=== PATIENT | female | born 1970 | race African-American/Black ===

== ENCOUNTER 2018-02-02 07:47 | Emergency (ER) | payer OTHER ==
[2018-02-02] MEDS ORDERED: methylPREDNISolone NA SUCC 125 MG/2 ML VIAL IVPUSH ONE (08:01)
[2018-02-02 08:03] VITALS: TEMP 98.5; BMI 26.5
--- NOTE | 2018-02-02 08:09 | PDOC ---
History of Present Illness - General Chief Complaint: Chronic pain Stated Complaint: PAIN Time Seen by Provider: 02/02/18 07:48 History Source: Patient Exam Limitations: No Limitations - History of Present Illness Initial Comments: 02/02/18 08:08 47yo F with history of RA not on any DMARDs or medication for over a year comes in with diffuse joint and body pain for the past 3 days. Pt states she was seeing Dr. Montgomery over a year ago, however her insurance changed to [place] through Medicaid. She used to be on Methotrexate over a year ago, but stopped because "she felt well." Pt reports since then taking only over the counter Advil for her pain mitigation. Her last dose of NSAIDs was this morning at 600mg which did not alleviate her pain. Denies any fever/chills/nausea/vomiting , CP/discomfort, palpitations, SOB, abdominal pain, easy bleeding or bruising, dysuria, polyuria. Past History - Past Medical History Allergies/Adverse Reactions: Allergies Allergy/AdvReac Type Severity Reaction Status Date / Time Latex, Natural Rubber Allergy Swelling Verified 02/02/18 07:57 No Known Drug Allergies Allergy Verified 02/02/18 07:57 Home Medications: Ambulatory Orders Ibuprofen [Motrin -] 800 mg PO PRN PRN 02/02/18 Metoprolol Succinate [Toprol Xl] 10 mg PO DAILY 02/02/18 Prednisone See Taper PO ASDIR #14 tablet 02/02/18 Anemia: Yes (HAS BEEN TREATED WITH IRON IN PAST) Asthma: No Cancer: No Cardiac Disorders: No (BENIGN HEART MURMUR A CHILD;PALPITATIONS) CVA: No COPD: No CHF: No Dementia: No Diabetes: No GI Disorders: Yes (C/O INDIGESTION;HAD COLITIS 12/05) Disorders: No HTN: Yes Hypercholesterolemia: No Liver Disease: No Seizures: No Thyroid Disease: No Other medical history: RHEUMATOID ARTHRITIS. - Surgical History Abdominal Surgery: Yes Appendectomy: No Cardiac Surgery: No Cholecystectomy: Yes Lung Surgery: No Neurologic Surgery: No Orthopedic Surgery: Yes (SX ON BOTH ELBOWS) - Immunization History Immunization Up to Date: No (no flu shot) - Suicide/Smoking/Psychosocial Hx Smoking Status: Yes Smoking History: Current every day smoker Have you smoked in the past 12 months: Yes Number of Cigarettes Smoked Daily: 10 Information on smoking cessation initiated: No 'Breaking Loose' booklet given: 01/12/13 Hx Alcohol Use: Yes Drug/Substance Use Hx: No Substance Use Type: Alcohol Hx Substance Use Treatment: No Review of Systems - Review of Systems Constitutional: No: Chills, Fever, Weakness HEENTM: No: Blurred Vision, Nose Congestion, Throat Pain Respiratory: No: Cough, Shortness of Breath, Wheezing Cardiac (ROS): No: Chest Pain, Lightheadedness, Palpitations, Syncope, Chest Tightness ABD/GI: No: Abdominal Distended, Diarrhea, Nausea, Vomiting, Abdominal cramping : No: Dysuria, Frequency, Flank Pain Musculoskeletal: Yes: Back Pain, Joint Pain, Joint Swelling. No: Muscle Pain, Muscle Weakness Integumentary: No: Bruising, Pruritus, Rash Neurological: No: Headache, Numbness, Weakness, Dizziness Psychiatric: No: Anxiety, Depression Hematologic/Lymphatic: No: Easy Bleeding, Easy Bruising *Physical Exam - Vital Signs Last Vital Signs Temp Pulse Resp BP Pulse Ox 98.5 F 70 18 133/96 100 02/02/18 07:59 02/02/18 07:59 02/02/18 07:59 02/02/18 07:59 02/02/18 07:59 - Physical Exam Comments: 02/02/18 08:14 GEN: NAD, awake, alert and oriented x3 HEENT: L eye scleral injections, EOMI, ELBA, anicteric sclera, moist mucosa Neck: No lymphadenopaty LUNGS: CTA bilaterally. No wheezes, rhonchi, or rales CARDIAC: RRR no murmurs appreciated ABD: Soft, NT/ND, no guarding no rebound, normoactive BS EXT: Multiple areas of joint inflammation and edema (most notable R MCP joint digits 2-4, L DIP joints digits 2-3, and L knee, no lower extremity edema , 2+ DP pulses ED Treatment Course - LABORATORY CBC & Chemistry Diagram: 02/02/18 08:15 02/02/18 08:15 Medical Decision Making - Medical Decision Making 02/02/18 08:17 47yo F with high suspicion of RA flare --CBC, CMP --Solumedrol 125mg x1 for acute flare-up --Explained to patient about importance of follow-up and how she should see a station cleaning porter or the resident clinic later this week --Will attempt to locate station cleaning porter with medicaid coverage eye injections explained by dry eyes --explained use of liquid tears for patient 02/02/18 09:05 CMP with hypokalemia of 3.2 --Kdur 40 once 02/02/18 09:38 On reassessment pt's pain feeling better compared to before. Will attempt to contact a station cleaning porter that takes medicaid and reassess for patient's ability to walk 02/02/18 10:[address] Montgomery's donor relations officer and they do not take Medicaid patients nor refer patients to anybody specifically 02/02/18 10:19 Pt's L knee pain worsened on reassessment --Morphine 4mg Once x1 (2 total doses at this point) --Will try Percocet 5-325 as well *DC/Admit/Observation/Transfer Diagnosis at time of Disposition: Rheumatoid arthritis flare - Discharge Dispostion Disposition: HOME Condition at time of disposition: Stable Admit: No - Prescriptions Prescriptions: Prednisone See Taper PO ASDIR #14 tablet - Referrals Referrals: Jamaal Kamara MD [Primary Care Provider] - - Patient Instructions Printed Discharge Instructions: Rheumatoid Arthritis Additional Instructions: You were seen in the ED for a rheumatoid arthritis flare up --We gave you steroids through your IV while you were here --You will be given a steroid taper (sent to your pharmacy) and you should follow the instructions as below: Day 1: 4 pills ONCE by Mouth (40mg) Day 2: 4 pills ONCE by Mouth (40mg) Day 3: 2 pills ONCE by Mouth (20mg) Day 4: 2 pills ONCE by Mouth (20mg) Day 5: 1 pill ONCE by Mouth (10mg) Day 6: 1 pill ONCE by Mouth (10mg) Day 7: NO PILLS --You will also have Percocet 5-325mg sent to your pharmacy --It is important to not drive or operate heavy machinery if you are under the effects of Percocet It is VERY important to follow-up with your primary care doctor and a station cleaning porter --Please call Dr. Kamara within the next couple of days to schedule an appointment; you can mention you were in the ED and this may help with scheduling --Please follow-up with a station cleaning porter; you can call your insurance company as well as ask Dr. Kamara to help locate a station cleaning porter that takes Medicaid - Post Discharge Activity
[2018-02-02 08:26] LABS: BASO % 0.8 % (0-2.0); HEMOGLOBIN 12.1 GM/dL (10.7-15.3); LYMPH % 11.8 % (8-40); MCH 28.1 pg (25.7-33.7); MCHC 32.7 g/dl (32.0-36.0); MEAN CELL VOLUME 86.1 fl (80-96); MEAN PLT VOLUME 7.5 fl (7.5-11.1); MONO % 5.3 % (3.8-10.2); NEUT % 81.1 % (42.8-82.8); PLATELET COUNT 277 K/MM3 (134-434); RDW 20.9 % (11.6-15.6); WHITE BLOOD COUNT 8.8 K/mm3 (4.0-10.0)
[2018-02-02] MEDS ORDERED: methylPREDNISolone NA SUCC 125 MG/2 ML VIAL ONE (08:34)
--- NOTE | 2018-02-02 08:34 | PDOC ---
Attending Attestation - HPI HPI: 02/02/18 09:01 The patient is a 47 year old female with a significant PMH of rheumatoid arthritis (not on DMARDs) and HTN who presents to the emergency department with diffuse joint and body aches beginning approximately 3 days ago. She reports her joint pain was so severe this morning she had significant difficulty ambulating and had to call EMS. She notes she has been unable to follow with her [place] because of insurance changes. She reports taking Ibuprofen 800 mg twice a day for pain control. The patient denies fevers or chills. She denies chest pain or shortness of breath. Allergies: NKDA. Latex, Natural rubber. PCP: Dr. Jamaal Kamara - Physicial Exam PE: 02/02/18 13:41 Vitals: Triage Vital signs reviewed General Appearance: no acute distress, well nourished well developed, Neck: Supple;No Nuchal rigidity Cardiac: Regular rate and rhythm, no murmurs, no rubs, no gallops, Lungs: Clear to auscultation bilateral, good air movement bilaterally, Abdomen: Soft, nondistended, normal bowel sounds, nontender to palpation Extremities: (+) Diffuse joint pain. Full range of motion to all extremities, no cyanosis, clubbing, or edema Skin: Warm and dry, no rashes or lesions, no petechiae Neuro: AOX3; Cranial Nerves 2-12 grossly intact, Strength intact to all extremities, Sensation intact to all extremities Psych: normal mood, normal affect <Brooks Harris - Last Filed: 02/02/18 13:41> - Resident Resident Name: Leonard Greco - ED Attending Attestation I have performed the following: I have examined & evaluated the patient, The case was reviewed & discussed with the resident, I agree w/resident's findings & plan, Exceptions are as noted - Medical Decision Making 02/02/18 14:49 47 years old history of rheumatoid arthritis not on medications secondary insurance chains presents with rheumatoid flare pain in all of her joints We'll treat with steroids morphine observe and reassess Reevaluation after course of pain medication and opiates patient feels more comfortable able to ambulate. She'll follow-up with her primary care provider in 1-2 days to arrange additional rheumatology follow-up Findings, need for follow-up, strict return instructions discussed with patient. <Quinton Vazquez - Last Filed: 02/02/18 14:49>
[2018-02-02 08:47] LABS: ALBUMIN 3.1 g/dl (3.4-5.0); ALK PHOS 60 U/L (45-117); ANION GAP 6 (8-16); BILIRUBIN,TOTAL 0.3 mg/dL (0.2-1.0); BLOOD UREA NITROGEN 7 mg/dL (7-18); CALCIUM 8.9 mg/dL (8.5-10.1); CHLORIDE 107 mmol/L (98-107); CO2 27 mmol/L (21-32); CREATININE 0.5 mg/dL (0.55-1.02); GLUCOSE,RANDOM 121 mg/dL (74-106); POTASSIUM 3.2 mmol/L (3.5-5.1); SGOT/AST 21 U/L (15-37); SGPT/ALT 20 U/L (12-78); SODIUM 140 mmol/L (136-145); TOT PROT 6.7 g/dl (6.4-8.2)
[2018-02-02] MEDS ORDERED: morphine CARPU-JECT 2 MG/1 ML DISP.SYRIN IVPUSH ONE ×2 (08:47)
[2018-02-02] MEDS ORDERED: morphine SULFATE 4 MG/ML VIAL ONE ×2 (08:54→10:40)
[2018-02-02] MEDS ORDERED: POTASSIUM CHLORIDE TABS 20 MEQ TABLET.ER (FP) PO ONE ×2 (09:05→09:08)
[2018-02-02] MEDS ORDERED: morphine CARPU-JECT 4 MG/1 ML DISP.SYRIN IVPUSH ONE (10:22)
[2018-02-02 11:47] VITALS: BP 129/60; PULSE 73
== END 2018-02-02 11:33 | disposition home or self-care (01) ==
LOC: JER 07:47
PROC: 3E033NZ Introduction of Analgesics, Hypnotics, Sedatives into Peripheral Vein, Percutaneous Approach (ICD-10-PCS; principal; 2018-02-02)
PROC: 3E033NZ Introduction of Analgesics, Hypnotics, Sedatives into Peripheral Vein, Percutaneous Approach (ICD-10-PCS; 2018-02-02)
PROC: 3E0333Z Introduction of Anti-inflammatory into Peripheral Vein, Percutaneous Approach (ICD-10-PCS; 2018-02-02)
DX: M06.9 Rheumatoid arthritis, unspecified (principal); E87.6 Hypokalemia; I10 Essential (primary) hypertension; F17.210 Nicotine dependence, cigarettes, uncomplicated; Z87.19 Personal history of other diseases of the digestive system; Z86.2 Personal history of diseases of the blood and blood-forming organs and certain disorders involving the immune mechanism
CPT/HCPCS: 36415; 80053; 85025; 96374; 96375; 96376; 99282-25

== ENCOUNTER 2018-06-21 19:44 | Observation (INO) | payer OTHER ==
[2018-06-21 19:58] VITALS: BMI 27.8
--- NOTE | 2018-06-21 20:13 | PDOC ---
Attending Attestation - HPI HPI: 06/21/18 22:28 Patient is a 47 year old female with a significant past medical history of Anemia, rheumatoid arthritis, HTN, who presents to the ED with complaints of vomiting that began x3 days ago. Patient reports eating frisian food for dinner x4 days ago followed by multiple episodes of vomiting mirella afternoon. She reports experiencing associated symptoms of x20 episodes of diarrhea, nausea , and heart palpitations, prompting her to come into the ED for further evaluations. Patient reports being unable to tolerate any food or beverages for x3 days but does state she has been compliant with her medication. Denies chest pain, Sob. Denies fevers, chills. Denies dysuria, hematuria. Denies constipation. Denies contact with sick individuals, out of state travelling. Denies any other symptoms. Allergies: Latex Social history: Lives with son. Current smoker, No alcohol. No illicit drugs. Surgical history: Cholecystectomy, PMD: Dr. karl Kamara - Physicial Exam PE: 06/21/18 22:28 GENERAL: +Warm to touch. Awake, alert, and fully oriented, in no acute distress HEAD: No signs of trauma EYES: PERRLA, EOMI, sclera anicteric, conjunctiva clear ENT: +tongue dry. +coughing clear sputum. Auricles normal inspection, hearing grossly normal, nares patent, oropharynx clear without exudates. NECK: Normal ROM, supple, no lymphadenopathy, JVD, or masses LUNGS: Breath sounds equal, clear to auscultation bilaterally. No wheezes, and no crackles HEART: Regular rate and rhythm, normal S1 and S2, no murmurs, rubs or gallops ABDOMEN: +Abdomen distended and gassy in all 4 quadrants. +abdomen minimally diffusely tender. Soft, nontender, normoactive bowel sounds. No guarding, no rebound. No masses EXTREMITIES: +bilaterally hand valgus joint deformity of RA. . Normal range of motion, no edema. No clubbing or cyanosis. No cords, erythema, or tenderness NEUROLOGICAL: Cranial nerves II through XII grossly intact. Normal speech, normal gait SKIN: Warm, Dry, normal turgor, no rashes or lesions noted. <Jason Livingston - Last Filed: 06/21/18 22:28> - Resident Resident Name: Sophia Langston - ED Attending Attestation I have performed the following: I have examined & evaluated the patient, The case was reviewed & discussed with the resident, I agree w/resident's findings & plan - Medical Decision Making 06/21/18 22:06 CBC is elevated WBC; lactic acid is normal. 06/21/18 23:23 Pt has a low K+2.4. She will be treated with mag sulfate and oral and IV potassium. We will reevaluate. 06/26/18 19:25 Pt's 2nd potassium was low despite 1 rider and oral potassium and IV mag; she was given the remaining 2 bags of K+ IV and she was admitted to tele. <Sylvia Rowan - Last Filed: 06/26/18 19:26>
[2018-06-21] MEDS ORDERED: SODIUM CHLORIDE 1,000 ML IV STA ×2 (20:42→23:40)
[2018-06-21] MEDS ORDERED: PANTOPRAZOLE SODIUM 40 MG VIAL IVPUSH ONE (20:42)
[2018-06-21] MEDS ORDERED: PANTOPRAZOLE SODIUM 40 MG/100 ML BAG IVPB ONE (21:00)
[2018-06-21 21:09] LABS: BASO % 0.4 % (0-2.0); EOS % 0.9 % (0-4.5); HEMATOCRIT 45.5 % (32.4-45.2); HEMOGLOBIN 15.6 GM/dL (10.7-15.3); LYMPH % 13.6 % (8-40); MCH 29.8 pg (25.7-33.7); MCHC 34.2 g/dl (32.0-36.0); MEAN PLT VOLUME 8.2 fl (7.5-11.1); MONO % 4.5 % (3.8-10.2); NEUT % 80.6 % (42.8-82.8); PLATELET COUNT 175 K/MM3 (134-434); RBC 5.23 M/mm3 (3.60-5.2); RDW 20.5 % (11.6-15.6); WHITE BLOOD COUNT 10.8 K/mm3 (4.0-10.0)
[2018-06-21] MEDS ORDERED: SODIUM CHLORIDE 0.9% 500 ML INFUS.BAG IV ONE (21:14)
[2018-06-21] MEDS ORDERED: morphine CARPU-JECT 2 MG/1 ML DISP.SYRIN IVPUSH ONE (21:24)
[2018-06-21] MEDS ORDERED: METOPROLOL TARTRATE 5 MG/5 ML VIAL IVPUSH ONE (21:25)
--- NOTE | 2018-06-21 21:30 | PDOC ---
History of Present Illness - General Chief Complaint: Vomiting/Diarrhea Stated Complaint: VOMITTING/DIARRHEA Time Seen by Provider: 06/21/18 20:09 History Source: Patient Exam Limitations: No Limitations - History of Present Illness Initial Comments: 06/21/18 21:20 Pt is a 47yo F with PMH of RA, HTN presenting to ED with complaits of nausea, vomiting nonbilous and diarrhea for 3 days. She thinks she may have seen streaks of blood in vomitus. It is associated with lower abdominal pain that does not radiate and is alleviated with bowel movements. Pt says she is unable to keep solids down, but is able to tolerate liquids sometimes. She also has lightheadedness. Symptoms started after she had [place] food. She denies blood stool, fever, dizziness, chest pain, shortness of breath. Last alcoholic drink was last night. PMH: see hpi PSH: c/section, cholecystectomy Meds: mtx, folic acid, Lipitor, ASA, metoprolo Social: 10 cigarettes/day, alcohol usel Past History - Past Medical History Allergies/Adverse Reactions: Allergies Allergy/AdvReac Type Severity Reaction Status Date / Time Latex, Natural Rubber Allergy Swelling Verified 06/21/18 19:54 No Known Drug Allergies Allergy Verified 06/21/18 19:54 Home Medications: Ambulatory Orders Metoprolol Succinate [Toprol Xl] 10 mg PO DAILY 02/02/18 Aspirin [ASA -] 81 mg PO DAILY 06/21/18 Atorvastatin Ca [Lipitor] 10 mg PO HS 06/21/18 Folic Acid 1 mg PO DAILY 06/21/18 Hydrochlorothiazide [Hctz -] 12.5 mg PO DAILY 06/21/18 Anemia: Yes (HAS BEEN TREATED WITH IRON IN PAST) Asthma: No Cancer: No Cardiac Disorders: (BENIGN HEART MURMUR A CHILD;PALPITATIONS) CVA: No COPD: No CHF: No Dementia: No Diabetes: No GI Disorders: Yes (C/O INDIGESTION;HAD COLITIS 12/05) Disorders: No HTN: Yes Hypercholesterolemia: No Liver Disease: No Seizures: No Thyroid Disease: No - Surgical History Abdominal Surgery: Yes Appendectomy: No Cardiac Surgery: No Cholecystectomy: Yes Lung Surgery: No Neurologic Surgery: No Orthopedic Surgery: Yes (SX ON BOTH ELBOWS) - Immunization History Immunization Up to Date: No (no flu shot) - Suicide/Smoking/Psychosocial Hx Smoking Status: Yes Smoking History: Current every day smoker Have you smoked in the past 12 months: Yes Number of Cigarettes Smoked Daily: 10 Information on smoking cessation initiated: No 'Breaking Loose' booklet given: 01/12/13 Hx Alcohol Use: No Drug/Substance Use Hx: No Substance Use Type: Alcohol Hx Substance Use Treatment: No Review of Systems - Review of Systems Constitutional: Yes: Chills. No: Fever, Weakness HEENTM: No: Recent change in vision, Double Vision, Throat Pain Respiratory: Yes: Cough. No: Shortness of Breath Cardiac (ROS): Yes: Lightheadedness. No: Chest Pain, Palpitations, Syncope ABD/GI: Yes: Diarrhea, Nausea, Vomiting, Abdominal cramping. No: Abdominal Distended, Blood Streaked Bowels, Constipated : No: Burning, Dysuria, Frequency, Hematuria Musculoskeletal: No: Back Pain, Muscle Pain, Muscle Weakness Neurological: No: Headache, Numbness *Physical Exam - Vital Signs Last Vital Signs Temp Pulse Resp BP Pulse Ox 98.0 F 113 H 20 134/107 99 06/21/18 19:55 06/21/18 19:55 06/21/18 19:55 06/21/18 19:55 06/21/18 21:06 - Physical Exam General Appearance: Yes: Nourished, Appropriately Dressed. No: Apparent Distress HEENT: positive: EOMI, SHITAL, Pharynx Normal, Scleral Icterus (R), Scleral Icterus (L). negative: Pharyngeal Erythema Neck: positive: Trachea midline, Supple. negative: Lymphadenopathy (R), Lymphadenopathy (L) Respiratory/Chest: positive: Wheezing (lung harris bilaterally). negative: Respiratory Distress, Rapid RR, Crackles, Rales, Plerual Rub Cardiovascular: positive: Regular Rhythm, S1, S2, Tachycardia. negative: Regular Rate, Edema, JVD, Murmur Vascular Pulses: Carotid (R): 2+, Carotid (L): 2+, Dorsalis-Pedis (R): 2+, Doralis-Pedis (L): 2+ Gastrointestinal/Abdominal: positive: Normal Bowel Sounds, Soft, Tenderness (RUQ , LUQ, LLQ). negative: Distended, Guarding, Rebound Musculoskeletal: negative: CVA Tenderness Extremity: positive: Normal Capillary Refill. negative: Pedal Edema, Swelling, Calf Tenderness Integumentary: positive: Normal Color, Dry, Warm. negative: Swelling Neurologic: positive: cash analyst II-XII NML intact, Fully Oriented, Alert, Normal Mood/ Affect, Normal Response, Motor Strength 02/21 ED Treatment Course - LABORATORY CBC & Chemistry Diagram: 06/21/18 21:00 06/21/18 22:25 - ADDITIONAL ORDERS Additional order review: 06/21/18 21:00 RBC 5.23 H MCV 87.0 MCHC 34.2 RDW 20.5 H MPV 8.2 Neutrophils % 80.6 Lymphocytes % 13.6 Monocytes % 4.5 Eosinophils % 0.9 Basophils % 0.4 - RADIOLOGY Radiology Studies Ordered: Category Date Time Status ABDOMEN & PELVIS CT WITH CONTR [CT] Stat CT Scan 06/21/18 21:11 Ordered Medical Decision Making - Medical Decision Making 06/21/18 23:08 Pt is a 47yo F with PMH of RA, HTN presenting to ED with complaits of nausea, vomiting nonbilous and diarrhea for 3 days. DDx: colitis, pancreatitis, appendicitis, nephrolithiasis, AAA, GE Will order basic labs, CT. CXR and EKG bc patient having cough and sounded wheezy on exam. Labs showed elevated blood counts, could be due to dehydration. Initial chemistries hemolyzed. Redraw showed K at 2.4 pt given KCl. Awaiting for CT results. pt hemodynamically stable, afebrile, will reevaluate bp and hr. HR could have been elevated due to dehydration or because she didn't take BP meds. Will reevaluate BMP for potassium level. Pt signed off to Dr. Goodman *DC/Admit/Observation/Transfer Diagnosis at time of Disposition: Diarrhea Qualifiers: Diarrhea type: unspecified type Qualified Code(s): R19.7 - Diarrhea, unspecified Vomiting Qualifiers: Vomiting type: unspecified Vomiting Intractability: non-intractable Nausea presence: with nausea Qualified Code(s): R11.2 - Nausea with vomiting, unspecified - Discharge Dispostion Disposition: HOME Condition at time of disposition: Stable Decision to Admit order: No - Referrals Referrals: Jamaal Kamara MD [Primary Care Provider] - - Patient Instructions Printed Discharge Instructions: DI for Diarrhea and Traveler's Diarrhea -- Adult, DI for Vomiting -- Adult Additional Instructions: You were seen here today because you had diarrhea, vomiting and abdominal pain. We did lab work, which showed your potassium was low, we gave you potassium here in the ED. The rest of the blood work was normal and your CT scan was normal. Please follow up with your PCP within the next week. Please come back to the ED if: your pain gets worse, you are unable to eat, vomiting gets worse, diarrhea gets worse, you notice blood in your diarrhea or vomit or if any new concerning symptom develops. Thank you - Post Discharge Activity
[2018-06-21] MEDS ORDERED: MORPHINE SULFATE 2 MG/ML VIAL ONE (21:42)
[2018-06-21] MEDS ORDERED: METOPROLOL TARTRATE 5 MG/5 ML VIAL ONE (21:42)
[2018-06-21 21:53] LABS: ANISOCYTOSIS 1+; MACROCYTOSIS 1+; PLATELET ESTIMATE ADEQUATE
[2018-06-21 23:06] LABS: ALBUMIN 2.9 g/dl (3.4-5.0); ANION GAP 9 MMOL/L (8-16); BLOOD UREA NITROGEN 8 mg/dL (7-18); CALCIUM 7.4 mg/dL (8.5-10.1); CHLORIDE 99 mmol/L (98-107); CO2 31 mmol/L (21-32); CREATININE 0.6 mg/dL (0.55-1.02); GLUCOSE,RANDOM 95 mg/dL (74-106); LIPASE 114 U/L (73-393); SGOT/AST 50 U/L (15-37); SGPT/ALT 40 U/L (12-78); SODIUM 139 mmol/L (136-145); TOT PROT 6.5 g/dl (6.4-8.2)
[2018-06-21 23:07] LABS: ALK PHOS 82 U/L (45-117)
[2018-06-21 23:09] LABS: POTASSIUM 2.4 mmol/L (3.5-5.1)
[2018-06-21] MEDS ORDERED: MAGNESIUM SULF 50% (8.12 MEQ/2 ML-1 GM VIAL) IVPB ONE (23:10)
[2018-06-21] MEDS ORDERED: POTASSIUM CHLORIDE TABS 20 MEQ TABLET.ER (FP) PO ONE ×2 (23:11→23:41)
[2018-06-21] MEDS ORDERED: KCL 10 MEQ IVPB 30 MEQ/300 ML INFUS.BAG IVPB ONE (23:41)
[2018-06-21] MEDS ORDERED: MAGNESIUM SULF 50% (8.12 MEQ/2 ML-1 GM VIAL) ONE (23:41)
[2018-06-21] MEDS: KCL 10 MEQ IVPB 10 MEQ/100 ML INFUS.BAG IVPB SCH (23:51)
--- NOTE | 2018-06-22 00:36 | PDOC ---
*Physical Exam - Vital Signs Last Vital Signs Temp Pulse Resp BP Pulse Ox 98.0 F 101 H 20 130/96 100 06/21/18 19:55 06/21/18 21:51 06/21/18 21:51 06/21/18 22:14 06/21/18 21:51 ED Treatment Course - LABORATORY CBC & Chemistry Diagram: 06/21/18 21:00 06/21/18 22:25 - ADDITIONAL ORDERS Additional order review: Laboratory Results 06/21/18 06/21/18 06/21/18 22:25 21:00 21:00 Sodium 139 Potassium 2.4 L* Chloride 99 Carbon Dioxide 31 Anion Gap 9 BUN 8 Creatinine 0.6 Creat Clearance w eGFR > 60 Random Glucose 95 Lactic Acid 1.8 Calcium 7.4 L Total Bilirubin 1.0 AST 50 H ALT 40 Alkaline Phosphatase 82 Troponin I < 0.02 Cancelled Total Protein 6.5 Albumin 2.9 L Lipase 114 Cancelled 06/21/18 21:00 Sodium Cancelled Potassium Cancelled Chloride Cancelled Carbon Dioxide Cancelled Anion Gap Cancelled BUN Cancelled Creatinine Cancelled Creat Clearance w eGFR Cancelled Random Glucose Cancelled Lactic Acid Calcium Cancelled Total Bilirubin Cancelled AST Cancelled ALT Cancelled Alkaline Phosphatase Cancelled Troponin I Total Protein Cancelled Albumin Cancelled Lipase 06/21/18 21:00 RBC 5.23 H MCV 87.0 MCHC 34.2 RDW 20.5 H MPV 8.2 Neutrophils % 80.6 Lymphocytes % 13.6 Monocytes % 4.5 Eosinophils % 0.9 Basophils % 0.4 - Medications Given in the ED: ED Medications Discontinued Medications Generic Name Dose Route Start Last Admin Trade Name Freq PRN Reason Stop Dose Admin Sodium Chloride 1,000 mls @ 1,000 mls/hr 06/21/18 20:42 06/21/18 21:20 Normal Saline - IV 06/21/18 21:41 1,000 mls/hr ASDIR STA Administration Metoprolol Tartrate 5 mg 06/21/18 21:25 06/21/18 22:14 Lopressor Injection - IVPUSH 06/21/18 21:26 5 mg ONCE ONE Administration Morphine Sulfate 2 mg 06/21/18 21:24 06/21/18 21:50 Morphine Injection - IVPUSH 06/21/18 21:25 2 mg ONCE ONE Administration Pantoprazole Sodium 40 mg 06/21/18 20:42 06/21/18 21:21 Protonix Iv IVPUSH 06/21/18 20:43 40 mg ONCE ONE Administration Sodium Chloride 1,000 ml 06/21/18 21:14 06/21/18 23:50 Normal Saline - IV 06/21/18 21:15 1,000 ml ONCE ONE Administration Medical Decision Making - Medical Decision Making 06/22/18 00:[address] Langston 47 yo female presents to ED for N/V and abdominal pain after eating Belgian food . Found to be hypokalemic at 2.4. K given Abdominal CT pending. Continues to have abdominal pain. 1000mg tylenol given 06/22/18 01:[address] Javier who is willing to admit the patient for short stay obs *DC/Admit/Observation/Transfer Diagnosis at time of Disposition: Diarrhea Qualifiers: Diarrhea type: unspecified type Qualified Code(s): R19.7 - Diarrhea, unspecified Vomiting Qualifiers: Vomiting type: unspecified Vomiting Intractability: non-intractable Nausea presence: with nausea Qualified Code(s): R11.2 - Nausea with vomiting, unspecified - Discharge Dispostion Decision to Admit order: Yes - Referrals Referrals: Jamaal Kamara MD [Primary Care Provider] - - Patient Instructions Printed Discharge Instructions: DI for Diarrhea and Traveler's Diarrhea -- Adult, DI for Vomiting -- Adult Additional Instructions: You were seen here today because you had diarrhea, vomiting and abdominal pain. We did lab work, which showed your potassium was low, we gave you potassium here in the ED. The rest of the blood work was normal and your CT scan was normal. Please follow up with your PCP within the next week. Please come back to the ED if: your pain gets worse, you are unable to eat, vomiting gets worse, diarrhea gets worse, you notice blood in your diarrhea or vomit or if any new concerning symptom develops. Thank you - Post Discharge Activity
[2018-06-22] MEDS ORDERED: ACETAMINOPHEN 1000 MG/100 ML VIAL (NON FORMULARY) IVPB ONE (00:57)
[2018-06-22] MEDS ORDERED: ACETAMINOPHEN INJECTION 100 ML IVPB ONE (01:11)
[2018-06-22 04:25] LABS: ANION GAP 10 MMOL/L (8-16); BLOOD UREA NITROGEN 8 mg/dL (7-18); CALCIUM 7.5 mg/dL (8.5-10.1); CHLORIDE 98 mmol/L (98-107); CO2 28 mmol/L (21-32); CREATININE 0.8 mg/dL (0.55-1.02); GLUCOSE,RANDOM 139 mg/dL (74-106); SODIUM 136 mmol/L (136-145)
[2018-06-22 04:27] LABS: POTASSIUM 2.5 mmol/L (3.5-5.1)
[2018-06-22] MEDS: KCL 10 MEQ IVPB 10 MEQ/100 ML INFUS.BAG IVPB SCH ×5 (04:53→15:24)
[2018-06-22 10:48] LABS: BASO % 0.3 % (0-2.0); EOS % 0.7 % (0-4.5); HEMATOCRIT 40.8 % (32.4-45.2); HEMOGLOBIN 13.6 GM/dL (10.7-15.3); LYMPH % 13.9 % (8-40); MCH 29.4 pg (25.7-33.7); MCHC 33.2 g/dl (32.0-36.0); MEAN CELL VOLUME 88.7 fl (80-96); MEAN PLT VOLUME 8.4 fl (7.5-11.1); MONO % 3.4 % (3.8-10.2); NEUT % 81.7 % (42.8-82.8); PLATELET COUNT 148 K/MM3 (134-434); RDW 20.1 % (11.6-15.6); WHITE BLOOD COUNT 9.6 K/mm3 (4.0-10.0)
[2018-06-22 11:13] LABS: ANION GAP 13 MMOL/L (8-16); BLOOD UREA NITROGEN 5 mg/dL (7-18); CALCIUM 7.5 mg/dL (8.5-10.1); CHLORIDE 101 mmol/L (98-107); CO2 24 mmol/L (21-32); CREATININE 0.6 mg/dL (0.55-1.02); GLUCOSE,RANDOM 131 mg/dL (74-106); SODIUM 138 mmol/L (136-145)
[2018-06-22 11:15] LABS: POTASSIUM 2.8 mmol/L (3.5-5.1)
[2018-06-22 11:52] LABS: URINE APPEARANCE SLCLOUDY; URINE BILIRUBIN NEGATIVE (<2.0 mg/dL); URINE COLOR YELLOW; URINE GLUCOSE (UA) NEGATIVE (NEGATIVE); URINE KETONE NEGATIVE (NEGATIVE); URINE LEUK ESTERASE NEGATIVE (NEGATIVE); URINE NITRITE NEGATIVE (NEGATIVE); URINE PROTEIN NEGATIVE (NEGATIVE); URINE UROBILINOGEN NEGATIVE mg/dL (0.2-1.0)
[2018-06-22] MEDS ORDERED: ONDANSETRON 4 MG/2 ML VIAL IVPUSH PRN (12:07)
[2018-06-22] MEDS: DEXTROSE 5%-0.45% SALINE 1,000 ML IV SCH (12:49)
--- NOTE | 2018-06-22 13:22 | EKG ---
Test Reason : Blood Pressure : / mmHG Vent. Rate : 104 BPM Atrial Rate : 104 BPM P-R Int : 164 ms QRS Dur : 070 ms QT Int : 414 ms P-R-T Axes : 046 003 053 degrees QTc Int : 544 ms SINUS TACHYCARDIA WITH PREMATURE VENTRICULAR COMPLEXES OR FUSION COMPLEXES POSSIBLE LEFT ATRIAL ENLARGEMENT SEPTAL INFARCT (CITED ON OR BEFORE 08-JAN-2016) MARKED ST ABNORMALITY, POSSIBLE INFERIOR SUBENDOCARDIAL INJURY PROLONGED QT ABNORMAL ECG WHEN COMPARED WITH ECG OF 08-JAN-2016 19:09, SIGNIFICANT CHANGES HAVE OCCURRED Confirmed by ÓSCAR PERLA MD ([id number]) on 06/22/2018 1:21:33 PM Referred By: Confirmed By:ÓSCAR PERLA MD
[2018-06-22] MEDS ORDERED: KETOROLAC TROMETHAMINE 30 MG/1 ML VIAL IVPUSH ONE ×2 (15:00→23:30)
--- NOTE | 2018-06-22 17:59 | HP ---
Admitting History and Physical - Admission History of Present Illness: Pt is a 47 y/o female with PMH significant for anemia, rheumatoid arthritis, HTN , who presented to the ED with complaints of vomiting that began x3 days ago. Patient reports eating pashto food for dinner x4 days ago followed by multiple episodes of vomiting mirella afternoon. She reports also of more than 20 episodes of diarrhea wc was associated w/ nausea. Pt also experienced heart palpitations, prompting her to come into the ED for further evaluations. Patient reports being unable to tolerate any food or beverages for x3 days but does state she has been compliant with her medication. Pt states that since this am she has not had any further diarrhea/vomiting. Pt had ct scan abd wc showed colitis however she had a normal wbc. - Past Medical History Cardiovascular: Yes: Murmur Gastrointestinal: Yes: GERD Heme/Onc: Yes: Anemia Musculoskeletal: Yes: Osteoarthritis Rheumatology: Yes: Rheumatoid Arthritis - Past Surgical History Past Surgical History: Yes: Cholecystectomy, - Smoking History Smoking history: Current every day smoker Have you smoked in the past 12 months: Yes Aproximately how many cigarettes per day: 10 - Alcohol/Substance Use Hx Alcohol Use: No - Social History ADL: Independent History of Recent Travel: No Home Medications - Allergies Allergies/Adverse Reactions: Allergies Allergy/AdvReac Type Severity Reaction Status Date / Time Latex, Natural Rubber Allergy Swelling Verified 06/21/18 19:54 No Known Drug Allergies Allergy Verified 06/21/18 19:54 - Home Medications Home Medications: Ambulatory Orders Metoprolol Succinate [Toprol Xl] 25 mg PO DAILY 02/02/18 Aspirin [ASA -] 81 mg PO DAILY 06/21/18 Atorvastatin Ca [Lipitor] 10 mg PO HS 06/21/18 Folic Acid 1 mg PO DAILY 06/21/18 Hydrochlorothiazide [Hctz -] 12.5 mg PO DAILY 06/21/18 Family Disease History - Family Disease History Family History: Unremarkable Family Disease History: Diabetes: Mother Review of Systems - Review of Systems Constitutional: reports: Loss of Appetite Eyes: reports: No Symptoms HENT: reports: No Symptoms Neck: reports: No Symptoms Cardiovascular: reports: No Symptoms Respiratory: reports: No Symptoms Gastrointestinal: reports: Diarrhea, Nausea, Vomiting Physical Examination Vital Signs: Vital Signs Temperature 98.3 F 06/22/18 15:45 Pulse Rate 97 H 09/03/18 15:45 Respiratory Rate 20 06/22/18 15:45 Blood Pressure 119/87 06/22/18 15:45 O2 Sat by Pulse Oximetry (%) 96 06/22/18 15:45 Eyes: Yes: WNL HENT: Yes: WNL Neck: Yes: WNL, Supple Cardiovascular: Yes: WNL, Regular Rate and Rhythm Respiratory: Yes: WNL, Regular, CTA Bilaterally Gastrointestinal: Yes: WNL, Normal Bowel Sounds, Soft Musculoskeletal: Yes: WNL Extremities: Yes: WNL Edema: No Neurological: Yes: WNL, Alert, Oriented ...Motor Strength: WNL Labs: CBC, BMP 06/22/18 10:40 06/22/18 10:40 Problem List - Problems (1) Diarrhea Assessment/Plan: Probable gastroenteritis Due to viral infection Cont IVF GI consult Advance diet as tolerated Code(s): R19.7 - DIARRHEA, UNSPECIFIED Qualifiers: Diarrhea type: unspecified type Qualified Code(s): R19.7 - Diarrhea, unspecified (2) Hypokalemia, gastrointestinal losses Assessment/Plan: Replace K+ and monitor levels Code(s): E87.6 - HYPOKALEMIA (3) HTN (hypertension) Assessment/Plan: Will hold hctz due to hypokalemia Code(s): I10 - ESSENTIAL (PRIMARY) HYPERTENSION (4) Rheumatoid arthritis Code(s): M06.9 - RHEUMATOID ARTHRITIS, UNSPECIFIED
[2018-06-22 20:48] LABS: ALBUMIN 3.1 g/dl (3.4-5.0); ANION GAP 13 MMOL/L (8-16); BLOOD UREA NITROGEN 5 mg/dL (7-18); CALCIUM 7.8 mg/dL (8.5-10.1); CHLORIDE 102 mmol/L (98-107); CO2 24 mmol/L (21-32); CREATININE 0.6 mg/dL (0.55-1.02); GLUCOSE,RANDOM 107 mg/dL (74-106); POTASSIUM 3.1 mmol/L (3.5-5.1); SGOT/AST 27 U/L (15-37); SGPT/ALT 32 U/L (12-78); SODIUM 139 mmol/L (136-145)
[2018-06-22 20:51] LABS: ALK PHOS 75 U/L (45-117); BILIRUBIN,TOTAL 0.4 mg/dL (0.2-1.0); TOT PROT 6.3 g/dl (6.4-8.2)
[2018-06-22] MEDS: HEPARIN NA (PORCINE) 5,000 UNITS/ML 1ML VIAL SQ SCH (21:41)
[2018-06-22] MEDS: ATORVASTATIN CA 10 MG TABLET (FP) PO SCH (21:41)
[2018-06-23 08:49] LABS: ALBUMIN 2.4 g/dl (3.4-5.0); ANION GAP 9 MMOL/L (8-16); BLOOD UREA NITROGEN 4 mg/dL (7-18); CALCIUM 7.5 mg/dL (8.5-10.1); CHLORIDE 103 mmol/L (98-107); CO2 29 mmol/L (21-32); GLUCOSE,RANDOM 81 mg/dL (74-106); SGPT/ALT 21 U/L (12-78); SODIUM 141 mmol/L (136-145)
[2018-06-23 08:52] LABS: ALK PHOS 55 U/L (45-117); BILIRUBIN,TOTAL 0.4 mg/dL (0.2-1.0); CREATININE 0.4 mg/dL (0.55-1.02); SGOT/AST 21 U/L (15-37); TOT PROT 5.2 g/dl (6.4-8.2)
[2018-06-23 09:03] LABS: POTASSIUM 2.4 mmol/L (3.5-5.1)
[2018-06-23 09:22] LABS: BASO % 0.4 % (0-2.0); HEMATOCRIT 34.8 % (32.4-45.2); HEMOGLOBIN 11.2 GM/dL (10.7-15.3); LYMPH % 30.2 % (8-40); MCH 29.1 pg (25.7-33.7); MCHC 32.3 g/dl (32.0-36.0); MEAN CELL VOLUME 89.9 fl (80-96); MEAN PLT VOLUME 8.5 fl (7.5-11.1); MONO % 3.4 % (3.8-10.2); PLATELET COUNT 104 K/MM3 (134-434); RBC 3.87 M/mm3 (3.60-5.2); RDW 20.7 % (11.6-15.6); WHITE BLOOD COUNT 4.4 K/mm3 (4.0-10.0)
[2018-06-23] MEDS: HEPARIN NA (PORCINE) 5,000 UNITS/ML 1ML VIAL SQ SCH ×3 (09:54→22:03)
[2018-06-23] MEDS: metoPROLOL SUCCINATE 25 MG TAB.SR.24H (FP) PO SCH (09:55)
[2018-06-23] MEDS: FOLIC ACID 1 MG TABLET (FP) PO SCH (09:55)
[2018-06-23] MEDS: ASPIRIN 81 MG CHEWABLE TABLETS PO SCH (09:55)
[2018-06-23] MEDS ORDERED: POTASSIUM CHLORIDE TABS 20 MEQ TABLET.ER (FP) PO ONE (11:53)
[2018-06-23] MEDS: NICOTINE 14 MG/24 HOURS TOPICAL PATCH TD SCH (12:45)
[2018-06-23] MEDS: KCL 10 MEQ IVPB 10 MEQ/100 ML INFUS.BAG IVPB SCH ×3 (12:46→17:41)
--- NOTE | 2018-06-23 13:39 | CON.GI ---
Consult Consult Specialty:: GI: Dr. Ricardo covering for Dr. Fajardo Referred by:: Dr. Javier Reason for Consultation:: Nausea, vomiting, diarrhea - History of Present Illness Chief Complaint: Nausea, vomiting, diarrhea History of Present Illness: 7F admitted through [facility] for evaluation of N/V/D. Ms. Bee states that she was in her USOH up until when she "started not feeling right". By Friday she had developed nausea, vomiting and profuse watery green diarrhea. This persisted throughout Friday and was admitted Friday morning. The nausea and vomiting has stopped and her last bowel movement was yesterday morning. She is tolerating PO. She believes that she had a similar episode a few years back but denies any persistent GI symptoms. She denies recent travel, sick contacts with similar complaints, antibiotic use, change in dietary habits, fevers/chills or abdominal pain. CT scan of the abdomen and pelvis revealed "areas of colitis" She was noted to be profoundly hypokalemic and is being repleted. A magnesium level has not been checked. No stool studies as of yet. There is no family history of colorectal cancer or other GI malignancy. She has never had an EGD or colonoscopy. - History Source History Provided By: Patient Limitations to Obtaining History: No Limitations - Past Medical History Cardio/Vascular: Yes: Murmur Gastrointestinal: Yes: GERD ...: No Musculoskeletal: Yes: Osteoarthritis Rheumatology: Yes: Rheumatoid Arthritis - Past Surgical History Past Surgical History: Yes: Cholecystectomy (laparoscopic), - Alcohol/Substance Use Hx Alcohol Use: Yes (1 beer TIW) History of Substance Use: reports: None - Smoking History Smoking history: Current every day smoker Have you smoked in the past 12 months: Yes Aproximately how many cigarettes per day: 10 - Social History Usual Living Arrangement: Alone ADL: Independent Occupation: Unemployed Place of : [facility] [place] History of Recent Travel: No Home Medications - Allergies Allergies/Adverse Reactions: Allergies Allergy/AdvReac Type Severity Reaction Status Date / Time Latex, Natural Rubber Allergy Swelling Verified 06/21/18 19:54 No Known Drug Allergies Allergy Verified 06/21/18 19:54 - Home Medications Home Medications: Ambulatory Orders Metoprolol Succinate [Toprol Xl] 25 mg PO DAILY 02/02/18 Aspirin [ASA -] 81 mg PO DAILY 06/21/18 Atorvastatin Ca [Lipitor] 10 mg PO HS 06/21/18 Folic Acid 1 mg PO DAILY 06/21/18 Hydrochlorothiazide [Hctz -] 12.5 mg PO DAILY 06/21/18 Family Disease History - Family Disease History Family Disease History: Diabetes: Mother (Alive: DM II), Other: Father (Alive: healthy), Mother, Brother (6, healthy), Sister (1, healthy), Son (2, healthy), Daughter (1, healthy) Other Family History: No family history of colorectal cancer or other GI malignancy Review of Systems - Review of Systems Constitutional: denies: Chills, Fever, Unintentional Wgt. Loss Gastrointestinal: reports: Diarrhea (improved), Nausea (resolved), Vomiting ( resolved). denies: Abdominal Pain, Constipation, Melena, Vomiting Blood Physical Exam-GI Vital Signs: Vital Signs Temperature 98.3 F 06/23/18 09:00 Pulse Rate 87 06/23/18 09:00 Respiratory Rate 20 06/23/18 09:00 Blood Pressure 128/78 06/23/18 09:00 O2 Sat by Pulse Oximetry (%) 97 06/22/18 20:09 Constitutional: Yes: Calm Eyes: No: Sclera Icterus Cardiovascular: Yes: Regular Rate and Rhythm Respiratory: Yes: CTA Bilaterally Gastrointestinal Inspection: Yes: Scars (faint horizontal pelvic scar, faint healed trochar scars) ...Auscultate: Yes: Normoactive Bowel Sounds ...Palpate: No: Hepatomegaly, Splenomegaly, Tenderness ...Percussion: No: Tympanitic ...Rectal Exam: Yes: Deferred (refused by patient) Edema: No (No LE edema) Neurological: Yes: Alert, Oriented Labs: CBC, BMP 06/23/18 06:30 06/23/18 06:30 Hepatic Panel Total Bilirubin 0.4 mg/dL (0.2-1.0) 06/23/18 06:30 AST 21 U/L (15-37) 06/23/18 06:30 ALT 21 U/L (12-78) 06/23/18 06:30 Alkaline Phosphatase 55 U/L (45-117) D 06/23/18 06:30 Albumin 2.4 g/dl (3.4-5.0) L 06/23/18 06:30 Imaging - Results Cat Scan: Report Reviewed, Image Reviewed (No oral contrast used) Problem List - Problems (1) Diarrhea Assessment/Plan: Acute N/V/D that seems to be improving without intervention. Suspect self limited acute gastroenteritis Advise: Lactose free low fiber diet Stool for Culture/C. Diff/O&P ordered Ordered magnesium level If diarrhea persists and when electrolytes permit, endoscopic evaluation could be considered Code(s): R19.7 - DIARRHEA, UNSPECIFIED Qualifiers: Diarrhea type: unspecified type Qualified Code(s): R19.7 - Diarrhea, unspecified
[2018-06-23] MEDS: KETOROLAC TROMETHAMINE 30 MG/1 ML VIAL IVPUSH PRN ×2 (15:57→23:55)
--- NOTE | 2018-06-23 18:33 | PN ---
Progress Note, Physician History of Present Illness: No further diarrhea or vomiting today - Current Medication List Current Medications: Active Medications Aspirin (Asa -) 81 mg PO DAILY [facility] Last Admin: 06/23/18 09:55 Dose: 81 mg Atorvastatin Calcium (Lipitor -) 10 mg PO HS [facility] Last Admin: 06/22/18 21:41 Dose: 10 mg Folic Acid (Folic Acid -) 1 mg PO DAILY [facility] Last Admin: 06/23/18 09:55 Dose: 1 mg Heparin Sodium (Porcine) (Heparin -) 5,000 unit SQ BID [facility] Last Admin: 06/23/18 09:54 Dose: Not Given Dextrose/Sodium Chloride (D5-1/2ns -) 1,000 mls @ 75 mls/hr IV ASDIR [facility] Last Admin: 06/22/18 12:49 Dose: 75 mls/hr Ketorolac Tromethamine (Toradol Injection -) 30 mg IVPUSH Q8H PRN PRN Reason: FOR PAIN 5-10 Stop: 06/28/18 15:00 Last Admin: 06/23/18 15:57 Dose: 30 mg Metoprolol Succinate (Toprol Xl -) 25 mg PO DAILY [facility] Last Admin: 06/23/18 09:55 Dose: 25 mg Nicotine (Nicoderm Patch -) 14 mg TD DAILY [facility] Last Admin: 06/23/18 12:45 Dose: 14 mg Ondansetron HCl (Zofran Injection) 4 mg IVPUSH Q6H PRN PRN Reason: NAUSEA - Objective Vital Signs: Vital Signs Temperature 98.5 F 06/23/18 14:02 Pulse Rate 63 06/23/18 14:02 Respiratory Rate 20 06/23/18 09:00 Blood Pressure 129/88 06/23/18 14:02 O2 Sat by Pulse Oximetry (%) 97 06/22/18 20:09 HENT: Yes: WNL Neck: Yes: WNL, Supple Cardiovascular: Yes: WNL, Regular Rate and Rhythm Respiratory: Yes: WNL, Regular, CTA Bilaterally Gastrointestinal: Yes: WNL, Normal Bowel Sounds, Soft Labs: CBC, BMP 06/23/18 06:30 06/23/18 06:30 Problem List - Problems (1) Diarrhea Assessment/Plan: Probable gastroenteritis Gi consult noted Check stool studies Replace K+ and monitor levels Code(s): R19.7 - DIARRHEA, UNSPECIFIED Qualifiers: Diarrhea type: unspecified type Qualified Code(s): R19.7 - Diarrhea, unspecified (2) Hypokalemia, gastrointestinal losses Assessment/Plan: Replace K+ and monitor levels Code(s): E87.6 - HYPOKALEMIA (3) HTN (hypertension) Assessment/Plan: Will hold hctz due to hypokalemia BP remains stable Code(s): I10 - ESSENTIAL (PRIMARY) HYPERTENSION (4) Rheumatoid arthritis Code(s): M06.9 - RHEUMATOID ARTHRITIS, UNSPECIFIED
[2018-06-23 21:57] LABS: ALBUMIN 2.9 g/dl (3.4-5.0); ANION GAP 10 MMOL/L (8-16); BILIRUBIN,TOTAL 0.2 mg/dL (0.2-1.0); BLOOD UREA NITROGEN 6 mg/dL (7-18); CALCIUM 8.4 mg/dL (8.5-10.1); CHLORIDE 107 mmol/L (98-107); CO2 28 mmol/L (21-32); CREATININE 0.5 mg/dL (0.55-1.02); GLUCOSE,RANDOM 94 mg/dL (74-106); POTASSIUM 3.5 mmol/L (3.5-5.1); SGOT/AST 23 U/L (15-37); SGPT/ALT 26 U/L (12-78); SODIUM 145 mmol/L (136-145); TOT PROT 6.2 g/dl (6.4-8.2)
[2018-06-23 21:58] LABS: ALK PHOS 65 U/L (45-117)
[2018-06-23] MEDS: DEXTROSE 5%-0.45% SALINE 1,000 ML IV SCH (22:00)
[2018-06-23] MEDS: ATORVASTATIN CA 10 MG TABLET (FP) PO SCH (22:00)
[2018-06-24 08:33] LABS: BASO % 0.3 % (0-2.0); EOS % 0.9 % (0-4.5); HEMOGLOBIN 11.6 GM/dL (10.7-15.3); LYMPH % 24.5 % (8-40); MCH 29.2 pg (25.7-33.7); MCHC 32.1 g/dl (32.0-36.0); MEAN CELL VOLUME 90.8 fl (80-96); MEAN PLT VOLUME 8.1 fl (7.5-11.1); MONO % 5.7 % (3.8-10.2); NEUT % 68.6 % (42.8-82.8); PLATELET COUNT 114 K/MM3 (134-434); RBC 3.97 M/mm3 (3.60-5.2); RDW 20.6 % (11.6-15.6)
[2018-06-24 09:03] LABS: ALBUMIN 2.7 g/dl (3.4-5.0); ANION GAP 7 MMOL/L (8-16); BLOOD UREA NITROGEN 5 mg/dL (7-18); CALCIUM 8.2 mg/dL (8.5-10.1); CHLORIDE 107 mmol/L (98-107); CO2 28 mmol/L (21-32); GLUCOSE,RANDOM 91 mg/dL (74-106); POTASSIUM 3.2 mmol/L (3.5-5.1); SODIUM 142 mmol/L (136-145)
[2018-06-24 09:08] LABS: ALK PHOS 60 U/L (45-117); BILIRUBIN,TOTAL 0.2 mg/dL (0.2-1.0); CREATININE 0.4 mg/dL (0.55-1.02); SGOT/AST 23 U/L (15-37); SGPT/ALT 21 U/L (12-78); TOT PROT 5.7 g/dl (6.4-8.2)
--- NOTE | 2018-06-24 09:18 | CONSULT ---
Consult Consult Specialty:: Rheumatology - History of Present Illness History of Present Illness: 47 y/o female with PMH significant for anemia, rheumatoid arthritis and HTN, admitted with acute gastroenteritis. HPI. The patient was admitted with a 3 day history od watery diarrhea, nausea and vomiting. She improved spontaneously in the hospital. Rheumatoid arthritis. I saw the patient twice in my office on 10/18/13 and 03/08 for sero-positve (RF and CCP) rheumatoid arthritis. I started the patient on Methotrexate, however she did not follow-up with me apparently due to change in insurance. She did not take medications for several years until last February when she was started on Methotrexate 12.5 mg/ week resulting in partial improvement. She had a right total knee replacement in 2016, she was told she need a left knee replacement and developed damage in her hands. At the present time she has moderate pain mainly in hands and right knee. The pain is worse at night and it is accompanied by 30 to 60 minutes morning stiffness. She has no limitation in her activities of daily living. - History Source History Provided By: Patient, Medical Record - Past Medical History Cardio/Vascular: Yes: Murmur Gastrointestinal: Yes: GERD ...: No Musculoskeletal: Yes: Osteoarthritis Rheumatology: Yes: Rheumatoid Arthritis - Past Surgical History Past Surgical History: Yes: Cholecystectomy (laparoscopic), - Alcohol/Substance Use Hx Alcohol Use: Yes (1 beer TIW) History of Substance Use: reports: None - Smoking History Smoking history: Current every day smoker Have you smoked in the past 12 months: Yes Aproximately how many cigarettes per day: 10 - Social History Usual Living Arrangement: Alone ADL: Independent Occupation: Unemployed History of Recent Travel: No Home Medications - Allergies Allergies/Adverse Reactions: Allergies Allergy/AdvReac Type Severity Reaction Status Date / Time Latex, Natural Rubber Allergy Swelling Verified 06/21/18 19:54 No Known Drug Allergies Allergy Verified 06/21/18 19:54 - Home Medications Home Medications: Ambulatory Orders Metoprolol Succinate [Toprol Xl] 25 mg PO DAILY 02/02/18 Aspirin [ASA -] 81 mg PO DAILY 06/21/18 Atorvastatin Ca [Lipitor] 10 mg PO HS 06/21/18 Folic Acid 1 mg PO DAILY 06/21/18 Hydrochlorothiazide [Hctz -] 12.5 mg PO DAILY 06/21/18 Family Disease History - Family Disease History Family Disease History: Diabetes: Mother (Alive: DM II), Other: Father (Alive: healthy), Mother, Brother (6, healthy), Sister (1, healthy), Son (2, healthy), Daughter (1, healthy) Other Family History: No family history of colorectal cancer or other GI malignancy Review of Systems - Review of Systems Constitutional: reports: No Symptoms Eyes: reports: No Symptoms HENT: reports: No Symptoms Neck: reports: No Symptoms Cardiovascular: reports: No Symptoms Respiratory: reports: No Symptoms Gastrointestinal: reports: Other (See HPI) Genitourinary: reports: No Symptoms Musculoskeletal: reports: Other (See HPI) Integumentary: reports: No Symptoms Neurological: reports: No Symptoms Physical Exam Vital Signs: Vital Signs Temperature 97.9 F 06/24/18 06:00 Pulse Rate 65 06/24/18 06:00 Respiratory Rate 18 06/23/18 20:00 Blood Pressure 116/66 06/24/18 06:00 O2 Sat by Pulse Oximetry (%) 100 06/23/18 20:00 Constitutional: Yes: No Distress Eyes: Yes: WNL HENT: Yes: WNL Neck: Yes: WNL Cardiovascular: Yes: WNL Respiratory: Yes: WNL Gastrointestinal: Yes: WNL Musculoskeletal: Yes: Other (Swelling of wrists, MCPs, PIPs and theleft knee. Sublluxation of MCPs.) Labs: CBC, BMP 06/24/18 07:45 Laboratory Tests 06/22/18 06/23/18 06/23/18 11:42 06:30 21:04 WBC 4.4 RBC 3.87 Hgb 11.2 Hct 34.8 MCV 89.9 MCH 29.1 MCHC 32.3 RDW 20.7 H Plt Count 104 L D MPV 8.5 Absolute Neuts (auto) 2.8 Neutrophils % 65.0 D Lymphocytes % 30.2 D Monocytes % 3.4 L Eosinophils % 1.0 Basophils % 0.4 Calcium 8.4 L Total Bilirubin 0.2 AST 23 ALT 26 Alkaline Phosphatase 65 D Total Protein 6.2 L Albumin 2.9 L Urine Color Yellow Urine Appearance Slcloudy Urine pH 5.0 Ur Specific [place] 1.026 Urine Protein Negative Urine Glucose (UA) Negative Urine Ketones Negative Urine Blood Negative Urine Nitrite Negative Urine Bilirubin Negative Urine Urobilinogen Negative Ur Leukocyte Esterase Negative Problem List - Problems (1) Gastroenteritis Assessment/Plan: Acute gastroenteritis,self limited. Resolved. Code(s): K52.9 - NONINFECTIVE GASTROENTERITIS AND COLITIS, UNSPECIFIED (2) Rheumatoid arthritis Assessment/Plan: Sero-positive rheumatoid arthritis, disease very active. Significant damag in hands and knees. At the present time on [id number] mg/week and folic acid (the patient did not take the medication last week. Plan: Increase Methotrexate to 20 mg once per week. I explained to the patient she requires follow-up by a ground equipment mechanic as she will require treatment with biological DMARDs. Code(s): M06.9 - RHEUMATOID ARTHRITIS, UNSPECIFIED
[2018-06-24] MEDS ORDERED: METHOTREXATE 2.5 MG TABLET PO SCH (09:30)
[2018-06-24] MEDS ORDERED: POTASSIUM CHLORIDE TABS 20 MEQ TABLET.ER (FP) PO SCH (10:00)
[2018-06-24] MEDS: ASPIRIN 81 MG CHEWABLE TABLETS PO SCH (10:48)
[2018-06-24] MEDS: FOLIC ACID 1 MG TABLET (FP) PO SCH (10:48)
[2018-06-24] MEDS: HEPARIN NA (PORCINE) 5,000 UNITS/ML 1ML VIAL SQ SCH (10:48)
[2018-06-24] MEDS: metoPROLOL SUCCINATE 25 MG TAB.SR.24H (FP) PO SCH (10:48)
[2018-06-24] MEDS: NICOTINE 14 MG/24 HOURS TOPICAL PATCH TD SCH ×2 (10:49→10:52)
[2018-06-24 14:32] VITALS: BP 119/79; PULSE 66; TEMP 98
== END 2018-06-24 12:32 | disposition left against medical advice (07) ==
LOC: JER 19:44 → JERBED 06-22 01:24 → J6S 06-22 13:15
PROVIDERS: ADMIT Internal Medicine; ATTEND Internal Medicine
PROC: 3E0333Z Introduction of Anti-inflammatory into Peripheral Vein, Percutaneous Approach (ICD-10-PCS; principal; 2018-06-22)
PROC: 3E033NZ Introduction of Analgesics, Hypnotics, Sedatives into Peripheral Vein, Percutaneous Approach (ICD-10-PCS; 2018-06-22)
PROC: 3E0337Z Introduction of Electrolytic and Water Balance Substance into Peripheral Vein, Percutaneous Approach (ICD-10-PCS; 2018-06-22)
PROC: 3E033GC Introduction of Other Therapeutic Substance into Peripheral Vein, Percutaneous Approach (ICD-10-PCS; 2018-06-22)
DX: K52.9 Noninfective gastroenteritis and colitis, unspecified (principal); R11.2 Nausea with vomiting, unspecified; E87.6 Hypokalemia; M06.9 Rheumatoid arthritis, unspecified; I10 Essential (primary) hypertension; D64.9 Anemia, unspecified; F17.210 Nicotine dependence, cigarettes, uncomplicated; Z79.82 Long term (current) use of aspirin; Z91.040 Latex allergy status
CPT/HCPCS: 36415; 71046-TC-FY; 74177-TC; 80048; 80053; 81003; 83605; 83690; 83735; 84484; 85025; 87045; 87046; 87177; 87209; 87324; 87449; 93005; 93010; 99285-25; G0378; J0131; J1644; J7030

== ENCOUNTER 2018-07-23 16:06 | Observation (INO) | payer OTHER ==
[2018-07-23 16:37] VITALS: BMI 25.7
--- NOTE | 2018-07-23 16:45 | PDOC ---
History of Present Illness - General Chief Complaint: Palpitations Stated Complaint: CHEST PAIN Time Seen by Provider: 07/23/18 16:45 History Source: Patient Exam Limitations: No Limitations - History of Present Illness Initial Comments: 07/23/18 17:23 47 year old female with PMH HTN, RA, anemia, GERD presents to ED for palpitations since 0700 today. She states that last friday she had a sore throat , that progressed over the next few days to nausea/vomiting/diarrhea, fever of 105Fm productive (white) cough and umbilical pain. She states she vomited 3X today, last had diarrhea yesterday, last had a fever Friday. She admits to shortness of breath currently. She denies chest pain. She denies taking any new medications that are not listed on her medical record below, except that she took theraflu over the weekend. Allergies - Latex She states that a month ago she was admitted to the hospital after a course of diarrhea made her potassium low. Past History - Past Medical History Allergies/Adverse Reactions: Allergies Allergy/AdvReac Type Severity Reaction Status Date / Time Latex, Natural Rubber Allergy Swelling Verified 07/23/18 16:55 No Known Drug Allergies Allergy Verified 07/23/18 16:55 Home Medications: Ambulatory Orders Metoprolol Succinate [Toprol Xl] 25 mg PO DAILY 02/02/18 Aspirin [ASA -] 81 mg PO DAILY 06/21/18 Atorvastatin Ca [Lipitor] 10 mg PO HS 06/21/18 Folic Acid 1 mg PO DAILY 06/21/18 Hydrochlorothiazide [Hctz -] 12.5 mg PO DAILY 06/21/18 Anemia: Yes (HAS BEEN TREATED WITH IRON IN PAST) Asthma: No Cancer: No Cardiac Disorders: (BENIGN HEART MURMUR A CHILD;PALPITATIONS) CVA: No COPD: No CHF: No Dementia: No Diabetes: No GI Disorders: Yes (C/O INDIGESTION;HAD COLITIS 12/05) Disorders: No HTN: Yes Hypercholesterolemia: No Liver Disease: No Seizures: No Thyroid Disease: No - Surgical History Abdominal Surgery: Yes Appendectomy: No Cardiac Surgery: No Cholecystectomy: Yes Lung Surgery: No Neurologic Surgery: No Orthopedic Surgery: Yes (SX ON BOTH ELBOWS) - Immunization History Immunization Up to Date: No (no flu shot) - Suicide/Smoking/Psychosocial Hx Smoking Status: Yes Smoking History: Current every day smoker Have you smoked in the past 12 months: Yes Number of Cigarettes Smoked Daily: 20 Information on smoking cessation initiated: No 'Breaking Loose' booklet given: 07/23/18 Hx Alcohol Use: No Drug/Substance Use Hx: No Substance Use Type: Alcohol Hx Substance Use Treatment: No Review of Systems - Review of Systems Able to Perform ROS?: Yes Comments:: 07/23/18 17:29 General: admits to fever, chills, night sweats, generalized weakness. HEENT: admits to sore throat. denies rhinorrhea, ear pain. Heart: admits to palpitations, diaphoresis. denies chest pain, syncope, lower extremity swelling. Respiratory: admits to shortness of breath, cough, sputum production. denies hemoptysis. Abdomen: admits to abdominal pain, nausea, vomiting, diarrhea. denies constipation, blood in stool. : denies dysuria, increased urinary frequency, hematuria, urinary incontinence , flank pain. Back: denies back pain. Musculoskeletal: denies joint pain, muscle pain. Neurological: denies headache, dizziness, numbness, tingling, weakness. Skin: denies rash, laceration, abrasion. *Physical Exam - Vital Signs Last Vital Signs Temp Pulse Resp BP Pulse Ox 98.7 F 103 H 20 109/78 98 07/23/18 16:10 07/23/18 16:10 07/23/18 16:10 07/23/18 16:10 07/23/18 16:10 - Physical Exam Comments: 07/23/18 17:31 Constitutional: Well-nourished, Well-developed, appearing stated age. HEENT: head is normocephalic, atraumatic. EOMI. PERRLA. bilateral TM no erythema , no bulging. posterior pharyngeal erythema noted. Neck: supple. Full ROM. Heart: regular rhythm. no murmurs, rubs or gallops. Lungs: wheezing to left posterior base. right lung field clear to auscultation. no stridor. Abdomen: soft, nontender. normal bowel sounds. no rebound, guarding, masses. Extremities: Peripheral pulses intact and equal. No lower extremity edema. ulnar deviation of fingers consistent with RA. Neurological: CN 2-12 grossly intact. Moves all four extremities. Psych: awake, alert, oriented x3. Follows commands. Answers questions appropriately. ED Treatment Course - LABORATORY CBC & Chemistry Diagram: 07/23/18 17:10 07/23/18 18:18 Medical Decision Making - Medical Decision Making 07/23/18 17:19 47 year old female with PMH HT, RA presents to ED for palpitations associated with nausea/vomiting/diarrhea/sore throat/fever (105F last friday)/chills. Initial Vital Signs Temp Pulse Resp BP Pulse Ox 98.7 F 103 H 20 109/78 98 07/23/18 16:10 07/23/18 16:10 07/23/18 16:10 07/23/18 16:10 07/23/18 16:10 Afebrile. Tachycardic. Borderline tachypnea. Hypotension 109/78. No hypoxia on room air. EKG performed at 1638 - rate 98, regulary rhythm, normal axis, QTc 569, no acute ST changes. IVF ordered for dehydration. Zofran ordered for nausea. Tylenol ordered for pain. Pepcid ordered for pain. Albuterol ordered for chest tightness/wheezing. 07/23/18 17:43 Lab reported to me that Chemistry hemolyzed. Order placed for re-draw. CBC WBC 8.0 K/mm3 (4.0-10.0) 07/23/18 17:10 RBC 4.91 M/mm3 (3.60-5.2) 07/23/18 17:10 Hgb 14.8 GM/dL (10.7-15.3) 07/23/18 17:10 Hct 44.1 % (32.4-45.2) D 07/23/18 17:10 MCV 89.9 fl (80-96) 07/23/18 17:10 MCH 30.1 pg (25.7-33.7) 07/23/18 17:10 MCHC 33.4 g/dl (32.0-36.0) 07/23/18 17:10 RDW 18.8 % (11.6-15.6) H 07/23/18 17:10 Plt Count 247 K/MM3 (134-434) D 07/23/18 17:10 MPV 8.2 fl (7.5-11.1) 07/23/18 17:10 Absolute Neuts (auto) 6.1 K/mm3 (1.5-8.0) 07/23/18 17:10 Neutrophils % 76.0 % (42.8-82.8) 07/23/18 17:10 Lymphocytes % 14.0 % (8-40) D 07/23/18 17:10 Monocytes % 9.2 % (3.8-10.2) 07/23/18 17:10 Eosinophils % 0.5 % (0-4.5) 07/23/18 17:10 Basophils % 0.3 % (0-2.0) 07/23/18 17:10 Nucleated RBC % 1 % (0-0) H 07/23/18 17:10 No leukocytosis. No anemia. INR, PTT INR 1.02 (0.83-1.09) 07/23/18 17:10 No coagulopathy. 07/23/18 18:35 Lab reported chemistry hemolyzed again. Order placed for re-draw. 07/23/18 18:43 Rapid flu negative. Rapid strep negative. 07/23/18 19:00 I discussed the case with Dr. Kma, who will assume care for the patient while she is in the Emergency Department. *DC/Admit/Observation/Transfer Diagnosis at time of Disposition: Hypomagnesemia, Palpitations, Hypokalemia - Discharge Dispostion Condition at time of disposition: Stable - Referrals Referrals: Jamaal Kamara MD [Primary Care Provider] - - Patient Instructions - Post Discharge Activity
--- NOTE | 2018-07-23 17:15 | PDOC ---
Attending Attestation - HPI HPI: 07/23/18 18:40 The patient is a 47 year old female with a significant past medical history of HTN, RA, anemia, and GERD who presents to the ED with complaints of palpitations since earlier today. Patient reports an onset of palpitations around 7:00 AM this morning. Patient reports she had a sore throat, nausea, vomiting, diarrhea, fever of 105F, a productive cough of white sputum, and umbilical pain over the past week. Patent states she vomited 3 times earlier today and notes her last episode of diarrhea was yesterday, last fever on Friday (07/19/18). Upon arrival to the ED, patient reports shortness of breath Denies chest pain. Denies dysuria or change in urinary frequency. Denies any other symptoms. Documentation prepared by Kayley Stein, acting as medical legal investigator for Tammy Molina DO. - Physicial Exam PE: 07/23/18 18:40 Constitutional: Awake, alert, oriented. No acute distress. Head: Normocephalic. Atraumatic Eyes: PERRL. EOMI. Conjunctivae are not pale. ENT: + Nasal congestion, Dry mucous at the nares. Dry Tongue. Posterior pharynx without exudates or erythema. Uvula midline. Neck: Supple. Full ROM. No lymphadenopathy. Cardiovascular: + Tachycardic. Regular rhythm. S1, S2 regular. Distal pulses are 2+ and symmetric. Pulmonary/Chest: + Wheezing at the bilateral bases. No rales or rhonchi. Abdominal: Soft and non-distended. There is no tenderness. No rebound, guarding or rigidity. No organomegaly. No palpable masses. Good bowel sounds. Back: No CVA tenderness. Musculoskeletal: + Ulnar deviation of her fingers and hands. No edema. No cyanosis. No clubbing. Full range of motion in all extremities. No calf tenderness. Radial/pedal pulses are intact and 2+ bilaterally Skin: Skin is warm and dry. No petechiae. No purpura. Neurological: Alert and oriented to person, place, and time. Cranial nerves II -XII are grossly intact. Normal speech. Strength is grossly symmetric. No sensory deficits. Psychiatric: Good eye contact. Normal interaction, affect and behavior. <Kayley Stein - Last Filed: 07/23/18 18:40> - Resident Resident Name: Yeni Purvis - ED Attending Attestation I have performed the following: I have examined & evaluated the patient, The case was reviewed & discussed with the resident, I agree w/resident's findings & plan, Exceptions are as noted - Critical Care Time Total Critical Care Time: 35 Critical Care Statement: The care of this patient involved high complexity decision making to prevent further life threatening deterioration of the patient 's condition and/or to evaluate & treat vital organ system(s) failure or risk of failure. - Medical Decision Making 07/23/18 17:14 I, Dr. Tammy Molina, DO, attest that this document has been prepared under my direction and personally reviewed by me in its entirety. I further attest, that it accurately reflects all work, treatment, procedures and medical decision -making performed by me. 07/23/18 19:58 a/p: 47yo female with hx of RA and htn with viral syndrome over the weekend which has improved with diarrhea today -palpitations today -similar symptoms in the past that were from hypokalemia -wheezing -will send labs, ekg, cxr -will hydrate, will give neb 07/23/18 20:03 potassium is low - magnesium is low -will replace both mag and k -will place on obs -pmd dr. karl valle - admits to Dr javier 07/23/18 21:51 resident discussed the case with Dr. Javier who accepts pt to service <Tammy Molina - Last Filed: 07/23/18 21:51> Heart Score/ECG Review - ECG Intrepretation Comment:: 07/23/18 17:14 sinus at 98, nl axis, qtc 569, abnl ekg <Tammy Molina - Last Filed: 07/23/18 21:51>
[2018-07-23 17:25] LABS: BASO % 0.3 % (0-2.0); EOS % 0.5 % (0-4.5); HEMATOCRIT 44.1 % (32.4-45.2); HEMOGLOBIN 14.8 GM/dL (10.7-15.3); MCH 30.1 pg (25.7-33.7); MCHC 33.4 g/dl (32.0-36.0); MEAN CELL VOLUME 89.9 fl (80-96); MEAN PLT VOLUME 8.2 fl (7.5-11.1); MONO % 9.2 % (3.8-10.2); PLATELET COUNT 247 K/MM3 (134-434); RBC 4.91 M/mm3 (3.60-5.2); RDW 18.8 % (11.6-15.6)
[2018-07-23 17:51] LABS: INR 1.02 (0.83-1.09)
[2018-07-23] MEDS ORDERED: SODIUM CHLORIDE 0.9% 1000 ML INFUS.BAG IV ONE (18:36)
[2018-07-23] MEDS ORDERED: ALBUTEROL SO4 2.5/IPRATROPIUM 0.5 INH SOL 3 ML VIAL.NEB. NEB ONE ×2 (18:36→19:44)
[2018-07-23] MEDS ORDERED: FAMOTIDINE 20 MG/50 ML IVPB 20 MG/50 ML MG IVPB ONE ×2 (18:36→19:45)
[2018-07-23] MEDS ORDERED: ONDANSETRON 4 MG/2 ML VIAL IVPUSH ONE (18:36)
[2018-07-23] MEDS ORDERED: ACETAMINOPHEN 1000 MG/100 ML VIAL (NON FORMULARY) IVPB ONE (18:36)
--- NOTE | 2018-07-23 19:07 | PDOC ---
*Physical Exam - Vital Signs Last Vital Signs Temp Pulse Resp BP Pulse Ox 98.7 F 103 H 20 109/78 98 07/23/18 16:10 07/23/18 16:10 07/23/18 16:10 07/23/18 16:10 07/23/18 16:10 ED Treatment Course - LABORATORY CBC & Chemistry Diagram: 07/23/18 17:10 07/23/18 18:18 - ADDITIONAL ORDERS Additional order review: Laboratory Results 07/23/18 07/23/18 07/23/18 18:18 18:18 18:18 PT with INR INR PTT (Actin FS) D-Dimer Cancelled Sodium Potassium Chloride Carbon Dioxide Anion Gap BUN Creatinine Creat Clearance w eGFR Random Glucose Calcium Phosphorus Magnesium Total Bilirubin AST ALT Alkaline Phosphatase Creatine Kinase Troponin I Total Protein Albumin TSH Cancelled Serum , Qual Negative 07/23/18 07/23/18 07/23/18 17:45 17:10 17:10 PT with INR 12.00 INR 1.02 PTT (Actin FS) D-Dimer Sodium Cancelled Cancelled Potassium Cancelled Cancelled Chloride Cancelled Cancelled Carbon Dioxide Cancelled Cancelled Anion Gap Cancelled Cancelled BUN Cancelled Cancelled Creatinine Cancelled Cancelled Creat Clearance w eGFR Cancelled Cancelled Random Glucose Cancelled Cancelled Calcium Cancelled Cancelled Phosphorus Cancelled Magnesium Cancelled Total Bilirubin Cancelled Cancelled AST Cancelled Cancelled ALT Cancelled Cancelled Alkaline Phosphatase Cancelled Cancelled Creatine Kinase Cancelled Cancelled Troponin I Cancelled Cancelled Total Protein Cancelled Cancelled Albumin Cancelled Cancelled TSH Serum , Qual 07/23/18 17:10 PT with INR INR PTT (Actin FS) 26.8 D-Dimer Sodium Potassium Chloride Carbon Dioxide Anion Gap BUN Creatinine Creat Clearance w eGFR Random Glucose Calcium Phosphorus Magnesium Total Bilirubin AST ALT Alkaline Phosphatase Creatine Kinase Troponin I Total Protein Albumin TSH Serum , Qual 07/23/18 17:38 Influenza Types A,B Antigen - Final Nasopharyngeal Swab - Final 07/23/18 17:38 Group A Strep Rapid Antigen - Final Throat 07/23/18 17:10 RBC 4.91 MCV 89.9 MCHC 33.4 RDW 18.8 H MPV 8.2 Neutrophils % 76.0 Lymphocytes % 14.0 D Monocytes % 9.2 Eosinophils % 0.5 Basophils % 0.3 Medical Decision Making - Medical Decision Making 07/23/18 19:06 Received sign out from Dr. Purvis. In short, pt is a 47 y/o female complaining of palpitations in setting of one week of nausea, vomiting, and diarrhea. H/o hypokalemia requiring hospitalization from diarrhea in past. EKG revealed prolonged QT, noted on previous EKG from 06/21/2018. Awaiting chemistry results for dispo. CMP revealed hypokalemia and hypomagnesemia. Will replenish. 07/23/18 20:[address] Javier. Agrees to admit pt to telemetry on observation status for electrolyte derangement. Orders to trend labs at 06:00 entered. *DC/Admit/Observation/Transfer Diagnosis at time of Disposition: Hypokalemia, Hypomagnesemia, Palpitations - Discharge Dispostion Condition at time of disposition: Stable Decision to Admit order: Yes - Referrals - Patient Instructions - Post Discharge Activity
[2018-07-23 19:39] LABS: ALBUMIN 2.7 g/dl (3.4-5.0); ALK PHOS 129 U/L (45-117); ANION GAP 12 MMOL/L (8-16); BILIRUBIN,TOTAL 0.4 mg/dL (0.2-1); BLOOD UREA NITROGEN 4 mg/dL (7-18); CALCIUM 8.7 mg/dL (8.5-10.1); CHLORIDE 90 mmol/L (98-107); CO2 32 mmol/L (21-32); CREATININE 0.6 mg/dL (0.55-1.3); GLUCOSE,RANDOM 93 mg/dL (74-106); MAGNESIUM 1.7 mg/dL (1.8-2.4); PHOSPHOROUS 3.2 mg/dL (2.5-4.9); SGOT/AST 132 U/L (15-37); SGPT/ALT 42 U/L (13-61); SODIUM 134 mmol/L (136-145); TOT PROT 6.6 g/dl (6.4-8.2)
[2018-07-23 19:41] LABS: POTASSIUM 2.6 mmol/L (3.5-5.1)
[2018-07-23] MEDS ORDERED: MAGNESIUM SULF 50% (8.12 MEQ/2 ML-1 GM VIAL) IVPB ONE (19:42)
[2018-07-23] MEDS ORDERED: POTASSIUM CHLORIDE TABS 20 MEQ TABLET.ER (FP) PO ONE ×2 (19:43→19:44)
[2018-07-23] MEDS ORDERED: ACETAMINOPHEN INJECTION 100 ML IVPB ONE (19:44)
[2018-07-23] MEDS ORDERED: MAGNESIUM 1GM/D5W - 1 GM/100 ML IVPB IVPB ONE (19:45)
[2018-07-23] MEDS ORDERED: ONDANSETRON 4 MG/2 ML VIAL ONE (19:45)
[2018-07-23] MEDS ORDERED: KCL 10 MEQ IVPB 20 MEQ/200 ML INFUS.BAG IVPB ONE (19:45)
[2018-07-23] MEDS: KCL 10 MEQ IVPB 10 MEQ/100 ML INFUS.BAG IVPB SCH ×2 (20:15→21:10)
[2018-07-24] MEDS ORDERED: ACETAMINOPHEN 500 MG TABLET (FP) PO ONE (05:53)
[2018-07-24] MEDS ORDERED: ACETAMINOPHEN 325 MG TABLET (FP) ONE (05:56)
[2018-07-24 07:16] LABS: BASO % 0.3 % (0-2.0); EOS % 0.7 % (0-4.5); HEMATOCRIT 38.8 % (32.4-45.2); HEMOGLOBIN 12.9 GM/dL (10.7-15.3); LYMPH % 25.7 % (8-40); MCH 30.1 pg (25.7-33.7); MCHC 33.2 g/dl (32.0-36.0); MEAN CELL VOLUME 90.5 fl (80-96); MONO % 5.9 % (3.8-10.2); NEUT % 67.4 % (42.8-82.8); PLATELET COUNT 215 K/MM3 (134-434); RBC 4.29 M/mm3 (3.60-5.2); RDW 18.6 % (11.6-15.6); WHITE BLOOD COUNT 4.9 K/mm3 (4.0-10.0)
[2018-07-24 07:44] LABS: ALBUMIN 2.4 g/dl (3.4-5.0); ALK PHOS 113 U/L (45-117); ANION GAP 10 MMOL/L (8-16); BILIRUBIN,TOTAL 0.4 mg/dL (0.2-1); BLOOD UREA NITROGEN 3 mg/dL (7-18); CHLORIDE 97 mmol/L (98-107); CO2 29 mmol/L (21-32); CREATININE 0.5 mg/dL (0.55-1.3); GLUCOSE,RANDOM 97 mg/dL (74-106); PHOSPHOROUS 2.5 mg/dL (2.5-4.9); SGOT/AST 83 U/L (15-37); SGPT/ALT 36 U/L (13-61); SODIUM 135 mmol/L (136-145); TOT PROT 5.7 g/dl (6.4-8.2)
--- NOTE | 2018-07-24 09:21 | EKG ---
Test Reason : Blood Pressure : / mmHG Vent. Rate : 098 BPM Atrial Rate : 098 BPM P-R Int : 156 ms QRS Dur : 074 ms QT Int : 446 ms P-R-T Axes : 037 -03 027 degrees QTc Int : 569 ms NORMAL SINUS RHYTHM NONSPECIFIC ST AND T WAVE ABNORMALITY PROLONGED QT ABNORMAL ECG Confirmed by ABIEL GARCIA MD ([id number]) on 07/24/2018 9:21:47 AM Referred By: Confirmed By:ABIEL GARCIA MD
[2018-07-24] MEDS ORDERED: ONDANSETRON 4 MG/2 ML VIAL IVPUSH PRN (10:06)
[2018-07-24] MEDS ORDERED: ASPIRIN 81 MG CHEWABLE TABLETS ONE (10:27)
[2018-07-24] MEDS ORDERED: FOLIC ACID 1 MG TABLET (FP) ONE (10:27)
[2018-07-24] MEDS ORDERED: KCL 10 MEQ IVPB 10 MEQ/100 ML INFUS.BAG IVPB ONE (10:27)
[2018-07-24] MEDS: ASPIRIN 81 MG CHEWABLE TABLETS PO SCH (10:28)
[2018-07-24] MEDS: FOLIC ACID 1 MG TABLET (FP) PO SCH (10:28)
[2018-07-24] MEDS: metoPROLOL SUCCINATE 25 MG TAB.SR.24H (FP) PO SCH (10:28)
[2018-07-24] MEDS: KCL 10 MEQ IVPB 10 MEQ/100 ML INFUS.BAG IVPB SCH ×4 (10:28→18:47)
[2018-07-24] MEDS: POTASSIUM CHLORIDE TABS 20 MEQ TABLET.ER (FP) PO SCH (10:53)
--- NOTE | 2018-07-24 15:49 | HP ---
Admitting History and Physical - Past Medical History Cardiovascular: Yes: Murmur Gastrointestinal: Yes: GERD Heme/Onc: Yes: Anemia Musculoskeletal: Yes: Osteoarthritis Rheumatology: Yes: Rheumatoid Arthritis - Past Surgical History Past Surgical History: Yes: Cholecystectomy (laparoscopic), - Smoking History Smoking history: Current every day smoker Have you smoked in the past 12 months: Yes Aproximately how many cigarettes per day: 20 - Alcohol/Substance Use Hx Alcohol Use: Yes (Social) History of Substance Use: reports: None - Social History ADL: Independent Occupation: Unemployed History of Recent Travel: No Home Medications - Allergies Allergies/Adverse Reactions: Allergies Allergy/AdvReac Type Severity Reaction Status Date / Time Latex, Natural Rubber Allergy Swelling Verified 07/23/18 16:55 No Known Drug Allergies Allergy Verified 07/23/18 16:55 - Home Medications Home Medications: Ambulatory Orders Metoprolol Succinate [Toprol Xl] 25 mg PO DAILY 02/02/18 Aspirin [ASA -] 81 mg PO DAILY 06/21/18 Atorvastatin Ca [Lipitor] 10 mg PO HS 06/21/18 Folic Acid 1 mg PO DAILY 06/21/18 Hydrochlorothiazide [Hctz -] 12.5 mg PO DAILY 06/21/18 Family Disease History - Family Disease History Family Disease History: Diabetes: Mother (Alive: DM II), Other: Father (Alive: healthy), Mother, Brother (6, healthy), Sister (1, healthy), Son (2, healthy), Daughter (1, healthy) Physical Examination Vital Signs: Vital Signs Temperature 97.9 F 07/24/18 14:02 Pulse Rate 93 H 07/24/18 14:02 Respiratory Rate 20 07/24/18 14:02 Blood Pressure 132/71 07/24/18 14:02 O2 Sat by Pulse Oximetry (%) 98 07/24/18 10:07 Labs: CBC, BMP 07/24/18 06:49 07/24/18 06:49
[2018-07-24] MEDS ORDERED: ALBUTEROL SO4 2.5/IPRATROPIUM 0.5 INH SOL 3 ML VIAL.NEB. NEB PRN (19:16)
[2018-07-24] MEDS: NICOTINE 21 MG/24 HOURS TOPICAL PATCH TD SCH (21:31)
[2018-07-24] MEDS: ATORVASTATIN CA 10 MG TABLET (FP) PO SCH (21:31)
[2018-07-24] MEDS: HEPARIN NA (PORCINE) 5,000 UNITS/ML 1ML VIAL SQ SCH (21:32)
[2018-07-24] MEDS: ZOLPIDEM TARTRATE 5 MG TABLET PO PRN (22:06)
[2018-07-25] MEDS: KCL 10 MEQ IVPB 10 MEQ/100 ML INFUS.BAG IVPB SCH ×3 (01:00→16:30)
[2018-07-25] MEDS ORDERED: IBUPROFEN 600 MG TABLET (FP) PO ONE ×2 (02:15→02:30)
[2018-07-25 07:36] LABS: BASO % 0.5 % (0-2.0); EOS % 1.4 % (0-4.5); HEMATOCRIT 35.5 % (32.4-45.2); HEMOGLOBIN 11.5 GM/dL (10.7-15.3); LYMPH % 28.1 % (8-40); MCH 29.6 pg (25.7-33.7); MCHC 32.5 g/dl (32.0-36.0); MEAN CELL VOLUME 91.2 fl (80-96); MONO % 5.5 % (3.8-10.2); NEUT % 64.5 % (42.8-82.8); PLATELET COUNT 223 K/MM3 (134-434); RBC 3.89 M/mm3 (3.60-5.2); WHITE BLOOD COUNT 5.5 K/mm3 (4.0-10.0)
--- NOTE | 2018-07-25 08:20 | CON.CARD ---
Consult Consult Specialty:: Cardiology for dr. Bourne Reason for Consultation:: palpitations - History Source History Provided By: Patient, Medical Record - Past Medical History Cardio/Vascular: Yes: HTN, Hyperlipdemia, Murmur Gastrointestinal: Yes: GERD Musculoskeletal: Yes: Osteoarthritis Rheumatology: Yes: Rheumatoid Arthritis - Past Surgical History Past Surgical History: Yes: Cholecystectomy (laparoscopic), - Alcohol/Substance Use Hx Alcohol Use: Yes (Social) History of Substance Use: reports: None - Smoking History Smoking history: Current every day smoker Have you smoked in the past 12 months: Yes Aproximately how many cigarettes per day: 20 - Social History Usual Living Arrangement: Alone ADL: Independent Occupation: Unemployed History of Recent Travel: No Home Medications - Allergies Allergies/Adverse Reactions: Allergies Allergy/AdvReac Type Severity Reaction Status Date / Time Latex, Natural Rubber Allergy Swelling Verified 07/23/18 16:55 No Known Drug Allergies Allergy Verified 07/23/18 16:55 - Home Medications Home Medications: Ambulatory Orders Metoprolol Succinate [Toprol Xl] 25 mg PO DAILY 02/02/18 Aspirin [ASA -] 81 mg PO DAILY 06/21/18 Atorvastatin Ca [Lipitor] 10 mg PO HS 06/21/18 Folic Acid 1 mg PO DAILY 06/21/18 Hydrochlorothiazide [Hctz -] 12.5 mg PO DAILY 06/21/18 Family Disease History - Family Disease History Family Disease History: Diabetes: Mother (Alive: DM II), Other: Father (Alive: healthy), Mother, Brother (6, healthy), Sister (1, healthy), Son (2, healthy), Daughter (1, healthy) Review of Systems - Review of Systems Constitutional: reports: No Symptoms Eyes: reports: No Symptoms HENT: reports: No Symptoms Neck: reports: No Symptoms Cardiovascular: reports: Palpitations Gastrointestinal: reports: No Symptoms Genitourinary: reports: No Symptoms Breasts: reports: No Symptoms Reported Musculoskeletal: reports: No Symptoms Integumentary: reports: No Symptoms Neurological: reports: No Symptoms Endocrine: reports: No Symptoms Hematology/Lymphatic: reports: No Symptoms Psychiatric: reports: No Symptoms Vital Signs: Vital Signs Temperature 98.8 F 07/25/18 01:00 Pulse Rate 75 07/25/18 05:00 Respiratory Rate 18 07/25/18 05:00 Blood Pressure 101/67 07/25/18 05:00 O2 Sat by Pulse Oximetry (%) 100 07/24/18 20:58 Constitutional: Yes: Well Nourished, No Distress, Calm Eyes: Yes: WNL, Conjunctiva Clear, EOM Intact HENT: Yes: WNL, Atraumatic, Normocephalic Neck: Yes: WNL, Supple, Trachea Midline Respiratory: Yes: WNL, Regular, CTA Bilaterally Gastrointestinal: Yes: WNL, Normal Bowel Sounds Renal/: Yes: WNL Cardiovascular: Yes: WNL, Regular Rate and Rhythm Musculoskeletal: Yes: WNL Extremities: Yes: WNL Integumentary: Yes: WNL Neurological: Yes: WNL, Alert, Oriented ...Motor Strength: WNL Psychiatric: Yes: WNL, Alert, Oriented - Other Data Labs, Other Data: CBC, BMP 07/25/18 06:20 INR, PTT INR 1.02 (0.83-1.09) 07/23/18 17:10 Laboratory Tests 07/23/18 07/23/18 07/23/18 17:10 17:10 17:10 WBC 8.0 RBC 4.91 Hgb 14.8 Hct 44.1 D MCV 89.9 MCH 30.1 MCHC 33.4 RDW 18.8 H Plt Count 247 D MPV 8.2 Absolute Neuts (auto) 6.1 Neutrophils % 76.0 Lymphocytes % 14.0 D Monocytes % 9.2 Eosinophils % 0.5 Basophils % 0.3 Nucleated RBC % 1 H PT with INR INR PTT (Actin FS) 26.8 D-Dimer Sodium Cancelled Potassium Cancelled Chloride Cancelled Carbon Dioxide Cancelled Anion Gap Cancelled BUN Cancelled Creatinine Cancelled Creat Clearance w eGFR Cancelled Random Glucose Cancelled Calcium Cancelled Phosphorus Magnesium Total Bilirubin Cancelled AST Cancelled ALT Cancelled Alkaline Phosphatase Cancelled Creatine Kinase Cancelled Troponin I Cancelled Total Protein Cancelled Albumin Cancelled TSH Serum , Qual 07/23/18 07/23/18 07/23/18 17:10 17:45 18:18 WBC RBC Hgb Hct MCV MCH MCHC RDW Plt Count MPV Absolute Neuts (auto) Neutrophils % Lymphocytes % Monocytes % Eosinophils % Basophils % Nucleated RBC % PT with INR 12.00 INR 1.02 PTT (Actin FS) D-Dimer Sodium Cancelled Potassium Cancelled Chloride Cancelled Carbon Dioxide Cancelled Anion Gap Cancelled BUN Cancelled Creatinine Cancelled Creat Clearance w eGFR Cancelled Random Glucose Cancelled Calcium Cancelled Phosphorus Cancelled Magnesium Cancelled Total Bilirubin Cancelled AST Cancelled ALT Cancelled Alkaline Phosphatase Cancelled Creatine Kinase Cancelled Troponin I Cancelled Total Protein Cancelled Albumin Cancelled TSH Cancelled Serum , Qual 07/23/18 07/23/18 07/23/18 18:18 18:18 18:18 WBC RBC Hgb Hct MCV MCH MCHC RDW Plt Count MPV Absolute Neuts (auto) Neutrophils % Lymphocytes % Monocytes % Eosinophils % Basophils % Nucleated RBC % PT with INR INR PTT (Actin FS) D-Dimer Cancelled Sodium 134 L Potassium 2.6 L* Chloride 90 L Carbon Dioxide 32 Anion Gap 12 BUN 4 L Creatinine 0.6 Creat Clearance w eGFR > 60 Random Glucose 93 Calcium 8.7 Phosphorus 3.2 Magnesium 1.7 L Total Bilirubin 0.4 AST 132 H ALT 42 Alkaline Phosphatase 129 H Creatine Kinase 32 Troponin I < 0.02 Total Protein 6.6 Albumin 2.7 L TSH 3.11 Serum , Qual Negative 07/24/18 07/24/18 07/25/18 06:49 06:49 06:20 WBC 4.9 5.5 RBC 4.29 3.89 Hgb 12.9 11.5 Hct 38.8 35.5 MCV 90.5 91.2 MCH 30.1 29.6 MCHC 33.2 32.5 RDW 18.6 H 19.0 H Plt Count 215 223 MPV 8.0 8.0 Absolute Neuts (auto) 3.3 3.6 Neutrophils % 67.4 64.5 Lymphocytes % 25.7 D 28.1 Monocytes % 5.9 5.5 Eosinophils % 0.7 1.4 D Basophils % 0.3 0.5 Nucleated RBC % 1 H 0 PT with INR INR PTT (Actin FS) D-Dimer Sodium 135 L Potassium 3.0 L Chloride 97 L Carbon Dioxide 29 Anion Gap 10 BUN 3 L Creatinine 0.5 L Creat Clearance w eGFR > 60 Random Glucose 97 Calcium 8.0 L Phosphorus 2.5 Magnesium 2.0 Total Bilirubin 0.4 AST 83 H ALT 36 Alkaline Phosphatase 113 Creatine Kinase Troponin I Total Protein 5.7 L Albumin 2.4 L TSH Serum , Qual Imaging - Results Chest X-ray: Image Reviewed (no i/e) EKG: Image Reviewed (sr rep abn prolonged qt) Problem List - Problems (1) Hypokalemia Code(s): E87.6 - HYPOKALEMIA (2) Hypomagnesemia Code(s): E83.42 - HYPOMAGNESEMIA (3) Palpitations Code(s): R00.2 - PALPITATIONS (4) Bronchitis Code(s): J40 - BRONCHITIS, NOT SPECIFIED ACUTE OR CHRONIC (5) Bronchitis due to fumes and vapors Code(s): J68.0 - BRONCHITIS & PNEUMONITIS D/T CHEMICALS, GAS, FUMES & VAPORS (6) Chronic pain Code(s): G89.29 - OTHER CHRONIC PAIN (7) Colitis Code(s): K52.9 - NONINFECTIVE GASTROENTERITIS AND COLITIS, UNSPECIFIED (8) Cough Code(s): R05 - COUGH (9) Diarrhea Code(s): R19.7 - DIARRHEA, UNSPECIFIED Qualifiers: Diarrhea type: unspecified type Qualified Code(s): R19.7 - Diarrhea, unspecified (10) Gastroenteritis Code(s): K52.9 - NONINFECTIVE GASTROENTERITIS AND COLITIS, UNSPECIFIED (11) Generalized pain Code(s): R52 - PAIN, UNSPECIFIED (12) HTN (hypertension) Code(s): I10 - ESSENTIAL (PRIMARY) HYPERTENSION (13) Hypokalemia, gastrointestinal losses Code(s): E87.6 - HYPOKALEMIA (14) Osteoarthritis of right knee Code(s): M17.9 - OSTEOARTHRITIS OF KNEE, UNSPECIFIED Qualifiers: Osteoarthritis type: primary Qualified Code(s): M17.11 - Unilateral primary osteoarthritis, right knee (15) Pain Code(s): R52 - PAIN, UNSPECIFIED (16) Rheumatoid arthritis Code(s): M06.9 - RHEUMATOID ARTHRITIS, UNSPECIFIED (17) Rheumatoid arthritis flare Code(s): M06.9 - RHEUMATOID ARTHRITIS, UNSPECIFIED (18) Tachycardia Code(s): R00.0 - TACHYCARDIA, UNSPECIFIED (19) Vomiting Code(s): R11.10 - VOMITING, UNSPECIFIED Qualifiers: Vomiting type: unspecified Vomiting Intractability: non-intractable Nausea presence: with nausea Qualified Code(s): R11.2 - Nausea with vomiting, unspecified Assessment/Plan palpitations wheezing diarrhea htn hlp hypokalemia peolonged qt Plan repeat ekg cont telemetry ECHO suplement K obtaine records feom dr. Tasia Kamara office regarding prior cardiac w/u Coverage dr. Bourne
[2018-07-25 08:47] LABS: ALBUMIN 2.2 g/dl (3.4-5.0); ALK PHOS 89 U/L (45-117); ANION GAP 7 MMOL/L (8-16); BILIRUBIN,TOTAL 0.4 mg/dL (0.2-1); CALCIUM 8.1 mg/dL (8.5-10.1); CHLORIDE 102 mmol/L (98-107); CO2 30 mmol/L (21-32); CREATININE 0.3 mg/dL (0.55-1.3); GLUCOSE,RANDOM 74 mg/dL (74-106); POTASSIUM 3.3 mmol/L (3.5-5.1); SGOT/AST 55 U/L (15-37); SGPT/ALT 29 U/L (13-61); SODIUM 140 mmol/L (136-145); TOT PROT 5.1 g/dl (6.4-8.2)
[2018-07-25 09:00] LABS: BLOOD UREA NITROGEN 2 mg/dL (7-18)
[2018-07-25] MEDS ORDERED: HYDROCHLOROTHIAZIDE 12.5 MG CAPSULE (FP) PO SCH (10:00)
[2018-07-25] MEDS: POTASSIUM CHLORIDE TABS 20 MEQ TABLET.ER (FP) PO SCH ×2 (10:10→13:51)
[2018-07-25] MEDS: NICOTINE 21 MG/24 HOURS TOPICAL PATCH TD SCH (10:10)
[2018-07-25] MEDS: ASPIRIN 81 MG CHEWABLE TABLETS PO SCH (10:10)
[2018-07-25] MEDS: metoPROLOL SUCCINATE 25 MG TAB.SR.24H (FP) PO SCH (10:10)
[2018-07-25] MEDS: HEPARIN NA (PORCINE) 5,000 UNITS/ML 1ML VIAL SQ SCH ×2 (10:11→22:01)
[2018-07-25] MEDS: FOLIC ACID 1 MG TABLET (FP) PO SCH (10:11)
--- NOTE | 2018-07-25 16:46 | EKG ---
Test Reason : Blood Pressure : / mmHG Vent. Rate : 076 BPM Atrial Rate : 076 BPM P-R Int : 176 ms QRS Dur : 074 ms QT Int : 434 ms P-R-T Axes : 039 -04 008 degrees QTc Int : 488 ms NORMAL SINUS RHYTHM POOR R WAVE PROGRESSION ABNORMAL ECG WHEN COMPARED WITH ECG OF 23-JUL-2018 16:38, NONSPECIFIC T WAVE ABNORMALITY, IMPROVED IN INFERIOR LEADS QT HAS SHORTENED CLINICAL CORRELATION IS RECOMMENDED Confirmed by ANGEL CALVILLO, RAY ([id number]) on 07/25/2018 4:46:32 PM Referred By: Angle DURHAM Confirmed By:RAY ORTIZ MD
[2018-07-25] MEDS: ZOLPIDEM TARTRATE 5 MG TABLET PO PRN (21:59)
[2018-07-25] MEDS: ATORVASTATIN CA 10 MG TABLET (FP) PO SCH (21:59)
--- NOTE | 2018-07-25 23:26 | PN ---
Progress Note, Physician History of Present Illness: No new complaints - Current Medication List Current Medications: Active Medications Albuterol/Ipratropium (Duoneb -) 1 amp NEB Q6H PRN PRN Reason: SHORTNESS OF BREATH Aspirin (Asa -) 81 mg PO DAILY [facility] Last Admin: 07/25/18 10:10 Dose: 81 mg Atorvastatin Calcium (Lipitor -) 10 mg PO HS [facility] Last Admin: 07/25/18 21:59 Dose: 10 mg Folic Acid (Folic Acid -) 1 mg PO DAILY [facility] Last Admin: 07/25/18 10:11 Dose: 1 mg Heparin Sodium (Porcine) (Heparin -) 5,000 unit SQ BID [facility] Last Admin: 07/25/18 22:01 Dose: Not Given Levofloxacin (Levaquin 500 Mg Premixed Ivpb -) 500 mg in 100 mls @ 100 mls/hr IVPB DAILY [facility]; Protocol Last Admin: 07/25/18 10:10 Dose: 100 mls/hr Metoprolol Succinate (Toprol Xl -) 25 mg PO DAILY [facility] Last Admin: 07/25/18 10:10 Dose: 25 mg Nicotine (Nicoderm Patch -) 21 mg TD DAILY [facility] Last Admin: 07/25/18 10:10 Dose: 21 mg Ondansetron HCl (Zofran Injection) 4 mg IVPUSH Q6H PRN PRN Reason: NAUSEA AND/OR VOMITING Potassium Chloride (K-Dur -) 40 meq PO DAILY [facility] Last Admin: 07/25/18 13:51 Dose: 40 meq Zolpidem Tartrate (Ambien -) 5 mg PO HS PRN PRN Reason: INSOMNIA Last Admin: 07/25/18 21:59 Dose: 5 mg - Objective Vital Signs: Vital Signs Temperature 98.6 F 07/25/18 20:28 Pulse Rate 89 07/25/18 20:28 Respiratory Rate 18 07/25/18 20:28 Blood Pressure 112/80 07/25/18 20:28 O2 Sat by Pulse Oximetry (%) 100 07/25/18 20:32 Neck: Yes: WNL, Supple Cardiovascular: Yes: WNL, Regular Rate and Rhythm Respiratory: Yes: WNL, Regular, CTA Bilaterally Gastrointestinal: Yes: WNL, Normal Bowel Sounds, Soft Labs: CBC, BMP 07/25/18 06:20 07/25/18 06:20 INR, PTT INR 1.02 (0.83-1.09) 07/23/18 17:10 Problem List - Problems (1) Hypokalemia Assessment/Plan: Replace K+ Check K+ level in am Code(s): E87.6 - HYPOKALEMIA (2) Palpitations Assessment/Plan: Resolved Prolonged QT interval As per cardio Code(s): R00.2 - PALPITATIONS (3) Bronchitis Assessment/Plan: Cont IV levaquin Cont nebulizers Code(s): J40 - BRONCHITIS, NOT SPECIFIED ACUTE OR CHRONIC (4) Rheumatoid arthritis Assessment/Plan: Tyelnol prn Code(s): M06.9 - RHEUMATOID ARTHRITIS, UNSPECIFIED (5) HTN (hypertension) Assessment/Plan: Cont metoprolol Code(s): I10 - ESSENTIAL (PRIMARY) HYPERTENSION (6) HLD (hyperlipidemia) Assessment/Plan: Cont lipitor Code(s): E78.5 - HYPERLIPIDEMIA, UNSPECIFIED
[2018-07-26 08:14] LABS: ALBUMIN 2.3 g/dl (3.4-5.0); ALK PHOS 94 U/L (45-117); ANION GAP 6 MMOL/L (8-16); BILIRUBIN,TOTAL 0.3 mg/dL (0.2-1); BLOOD UREA NITROGEN 4 mg/dL (7-18); CALCIUM 8.5 mg/dL (8.5-10.1); CHLORIDE 106 mmol/L (98-107); CO2 27 mmol/L (21-32); CREATININE 0.4 mg/dL (0.55-1.3); GLUCOSE,RANDOM 98 mg/dL (74-106); POTASSIUM 4.2 mmol/L (3.5-5.1); SGOT/AST 46 U/L (15-37); SGPT/ALT 27 U/L (13-61); SODIUM 140 mmol/L (136-145); TOT PROT 5.4 g/dl (6.4-8.2)
--- NOTE | 2018-07-26 08:18 | PN ---
Progress Note, Physician - Current Medication List Current Medications: Active Medications Albuterol/Ipratropium (Duoneb -) 1 amp NEB Q6H PRN PRN Reason: SHORTNESS OF BREATH Aspirin (Asa -) 81 mg PO DAILY [facility] Last Admin: 07/25/18 10:10 Dose: 81 mg Atorvastatin Calcium (Lipitor -) 10 mg PO HS [facility] Last Admin: 07/25/18 21:59 Dose: 10 mg Folic Acid (Folic Acid -) 1 mg PO DAILY [facility] Last Admin: 07/25/18 10:11 Dose: 1 mg Heparin Sodium (Porcine) (Heparin -) 5,000 unit SQ BID [facility] Last Admin: 07/25/18 22:01 Dose: Not Given Levofloxacin (Levaquin 500 Mg Premixed Ivpb -) 500 mg in 100 mls @ 100 mls/hr IVPB DAILY [facility]; Protocol Last Admin: 07/25/18 10:10 Dose: 100 mls/hr Metoprolol Succinate (Toprol Xl -) 25 mg PO DAILY [facility] Last Admin: 07/25/18 10:10 Dose: 25 mg Nicotine (Nicoderm Patch -) 21 mg TD DAILY [facility] Last Admin: 07/25/18 10:10 Dose: 21 mg Ondansetron HCl (Zofran Injection) 4 mg IVPUSH Q6H PRN PRN Reason: NAUSEA AND/OR VOMITING Potassium Chloride (K-Dur -) 40 meq PO DAILY [facility] Last Admin: 07/25/18 13:51 Dose: 40 meq Zolpidem Tartrate (Ambien -) 5 mg PO HS PRN PRN Reason: INSOMNIA Last Admin: 07/25/18 21:59 Dose: 5 mg - Objective Vital Signs: Vital Signs Temperature 98.7 F 07/26/18 01:00 Pulse Rate 83 07/26/18 05:00 Respiratory Rate 18 07/26/18 05:00 Blood Pressure 103/64 07/26/18 05:00 O2 Sat by Pulse Oximetry (%) 100 07/25/18 20:32 Eyes: Yes: WNL, Conjunctiva Clear, EOM Intact HENT: Yes: WNL, Atraumatic, Normocephalic Neck: Yes: WNL, Supple, Trachea Midline Cardiovascular: Yes: WNL, Regular Rate and Rhythm Respiratory: Yes: WNL, Regular, CTA Bilaterally Gastrointestinal: Yes: WNL, Normal Bowel Sounds Genitourinary: Yes: WNL Musculoskeletal: Yes: WNL Extremities: Yes: WNL Edema: No Integumentary: Yes: WNL Neurological: Yes: WNL, Alert, Oriented ...Motor Strength: WNL Psychiatric: Yes: WNL Labs: CBC, BMP 07/25/18 06:20 07/26/18 06:00 INR, PTT INR 1.02 (0.83-1.09) 07/23/18 17:10 Problem List - Problems (1) Hypokalemia Code(s): E87.6 - HYPOKALEMIA (2) Hypomagnesemia Code(s): E83.42 - HYPOMAGNESEMIA (3) Palpitations Code(s): R00.2 - PALPITATIONS (4) Bronchitis Code(s): J40 - BRONCHITIS, NOT SPECIFIED ACUTE OR CHRONIC (5) Bronchitis due to fumes and vapors Code(s): J68.0 - BRONCHITIS & PNEUMONITIS D/T CHEMICALS, GAS, FUMES & VAPORS (6) Chronic pain Code(s): G89.29 - OTHER CHRONIC PAIN (7) Colitis Code(s): K52.9 - NONINFECTIVE GASTROENTERITIS AND COLITIS, UNSPECIFIED (8) Cough Code(s): R05 - COUGH (9) Diarrhea Code(s): R19.7 - DIARRHEA, UNSPECIFIED Qualifiers: Diarrhea type: unspecified type Qualified Code(s): R19.7 - Diarrhea, unspecified (10) Gastroenteritis Code(s): K52.9 - NONINFECTIVE GASTROENTERITIS AND COLITIS, UNSPECIFIED (11) Generalized pain Code(s): R52 - PAIN, UNSPECIFIED (12) HTN (hypertension) Code(s): I10 - ESSENTIAL (PRIMARY) HYPERTENSION (13) Hypokalemia, gastrointestinal losses Code(s): E87.6 - HYPOKALEMIA (14) Osteoarthritis of right knee Code(s): M17.9 - OSTEOARTHRITIS OF KNEE, UNSPECIFIED Qualifiers: Osteoarthritis type: primary Qualified Code(s): M17.11 - Unilateral primary osteoarthritis, right knee (15) Pain Code(s): R52 - PAIN, UNSPECIFIED (16) Rheumatoid arthritis Code(s): M06.9 - RHEUMATOID ARTHRITIS, UNSPECIFIED (17) Rheumatoid arthritis flare Code(s): M06.9 - RHEUMATOID ARTHRITIS, UNSPECIFIED (18) Tachycardia Code(s): R00.0 - TACHYCARDIA, UNSPECIFIED (19) Vomiting Code(s): R11.10 - VOMITING, UNSPECIFIED Qualifiers: Vomiting type: unspecified Vomiting Intractability: non-intractable Nausea presence: with nausea Qualified Code(s): R11.2 - Nausea with vomiting, unspecified Assessment/Plan palpitations wheezing diarrhea htn hlp hypokalemia peolonged qt -normalized Plan repeat ekg cont telemetry ECHO suplement K -consider IV KCL obtaine records feom dr. Tasia Kamara office regarding prior cardiac w/u Coverage dr. Bourne
[2018-07-26] MEDS: NICOTINE 21 MG/24 HOURS TOPICAL PATCH TD SCH (09:37)
[2018-07-26] MEDS: ASPIRIN 81 MG CHEWABLE TABLETS PO SCH (09:37)
[2018-07-26] MEDS: POTASSIUM CHLORIDE TABS 20 MEQ TABLET.ER (FP) PO SCH (09:38)
[2018-07-26] MEDS: FOLIC ACID 1 MG TABLET (FP) PO SCH (09:38)
[2018-07-26] MEDS: metoPROLOL SUCCINATE 25 MG TAB.SR.24H (FP) PO SCH (09:38)
[2018-07-26] MEDS: HEPARIN NA (PORCINE) 5,000 UNITS/ML 1ML VIAL SQ SCH (09:38)
[2018-07-26 11:55] VITALS: BP 130/55; PULSE 78; TEMP 98.1
--- NOTE | 2018-07-26 12:57 | PN ---
Physical Exam: SUBJECTIVE: Patient seen and examined OBJECTIVE: Vital Signs Period Temp Pulse Resp BP Sys/[place] Pulse Ox Last 24 Hr 98 F-98.7 F 78-90 18-20 103-130/55-84 98-100 GENERAL: The patient is awake, alert, and fully oriented, in no acute distress. HEAD: Normal with no signs of trauma. EYES: PERRL, extraocular movements intact, sclera anicteric, conjunctiva clear. No ptosis. ENT: Ears normal, nares patent, oropharynx clear without exudates, moist mucous membranes. NECK: Trachea midline, full range of motion, supple. LUNGS: Breath sounds equal, clear to auscultation bilaterally, no wheezes, no crackles, no accessory muscle use. HEART: Regular rate and rhythm, S1, S2 without murmur, rub or gallop. ABDOMEN: Soft, nontender, nondistended, normoactive bowel sounds, no guarding, no rebound, no hepatosplenomegaly, no masses. EXTREMITIES: 2+ pulses, warm, well-perfused, no edema. NEUROLOGICAL: Cranial nerves II through XII grossly intact. Normal speech, gait not observed. PSYCH: Normal mood, normal affect. SKIN: Warm, dry, normal turgor, no rashes or lesions noted Laboratory Results - last 24 hr 07/26/18 06:00 Sodium 140 Potassium 4.2 Chloride 106 Carbon Dioxide 27 Anion Gap 6 L BUN 4 L Creatinine 0.4 L Creat Clearance w eGFR > 60 Random Glucose 98 Calcium 8.5 Total Bilirubin 0.3 AST 46 H ALT 27 Alkaline Phosphatase 94 Total Protein 5.4 L Albumin 2.3 L Active Medications Generic Name Dose Route Start Last Admin Trade Name Russq PRN Reason Stop Dose Admin Albuterol/Ipratropium 1 amp 07/24/18 19:16 Duoneb - NEB Q6H PRN SHORTNESS OF BREATH Aspirin 81 mg 07/24/18 10:15 07/26/18 09:37 Asa - PO 81 mg DAILY SAMUEL Administration Atorvastatin Calcium 10 mg 07/24/18 22:00 07/25/18 21:59 Lipitor - PO 10 mg HS SAMUEL Administration Folic Acid 1 mg 07/24/18 10:15 07/26/18 09:38 Folic Acid - PO 1 mg DAILY SAMUEL Administration Heparin Sodium (Porcine) 5,000 unit 07/24/18 22:00 07/26/18 09:38 Heparin - SQ Not Given BID SAMUEL Levofloxacin 500 mg in 100 mls @ 100 mls/hr 07/24/18 19:15 07/26/18 09:37 Levaquin 500 Mg Premixed Ivpb - IVPB 100 mls/hr DAILY SAMUEL Administration Protocol Metoprolol Succinate 25 mg 07/24/18 10:15 07/26/18 09:38 Toprol Xl - PO 25 mg DAILY SAMUEL Administration Nicotine 21 mg 07/24/18 19:30 07/26/18 09:37 Nicoderm Patch - TD 21 mg DAILY SAMUEL Administration Ondansetron HCl 4 mg 07/24/18 10:06 Zofran Injection IVPUSH Q6H PRN NAUSEA AND/OR VOMITING Potassium Chloride 40 meq 07/25/18 13:30 07/26/18 09:38 K-Dur - PO 40 meq DAILY SAMUEL Administration Zolpidem Tartrate 5 mg 07/24/18 19:15 07/25/18 21:59 Ambien - PO 5 mg HS PRN Administration INSOMNIA ASSESSMENT/PLAN:
--- NOTE | 2018-07-26 13:10 | DS ---
Physical Exam: Patient was not seen today. Advised by nurse she was leaving the floor. Refused to wait to be seen. Refused to sign out AMA. HOSPITAL COURSE: Date of Admission:07/23/18 Date of Leaving AMA: 07/26/18 Minutes to complete discharge: 10 Discharge Summary Reason For Visit: HYPOKALEMIA,HYPOMAGNESEMIA Current Active Problems HLD (hyperlipidemia) (Acute) HTN (hypertension) (Acute) Hypokalemia (Acute) Hypomagnesemia (Acute) Palpitations (Acute) Condition: Guarded - Instructions Referrals: Jamaal Kamara MD [Primary Care Provider] - Disposition: AGAINST MEDICAL ADVICE - Home Medications Comprehensive Discharge Medication List: Ambulatory Orders Metoprolol Succinate [Toprol Xl] 25 mg PO DAILY 02/02/18 Aspirin [ASA -] 81 mg PO DAILY 06/21/18 Atorvastatin Ca [Lipitor] 10 mg PO HS 06/21/18 Folic Acid 1 mg PO DAILY 06/21/18 Hydrochlorothiazide [Hctz -] 12.5 mg PO DAILY 06/21/18 This patient is new to me today: Yes Date on this admission: 07/26/18 Emergency Visit: Yes ED Registration Date: 07/23/18 Care time: The patient presented to the Emergency Department on the above date and was hospitalized for further evaluation of their emergent condition. Critical Care patient: No - Discharge Referral Referred to [facility] Med [facility].C[facility] No
== END 2018-07-26 14:44 | disposition left against medical advice (07) ==
LOC: JER 16:06 → JERBED 19:58 → J4W 07-24 14:15
PROVIDERS: ADMIT Internal Medicine; ATTEND Internal Medicine
PROC: 3E03329 Introduction of Other Anti-infective into Peripheral Vein, Percutaneous Approach (ICD-10-PCS; principal; 2018-07-23)
PROC: 3E033GC Introduction of Other Therapeutic Substance into Peripheral Vein, Percutaneous Approach (ICD-10-PCS; 2018-07-23)
PROC: 3E0337Z Introduction of Electrolytic and Water Balance Substance into Peripheral Vein, Percutaneous Approach (ICD-10-PCS; 2018-07-23)
PROC: 3E0F7GC Introduction of Other Therapeutic Substance into Respiratory Tract, Via Natural or Artificial Opening (ICD-10-PCS; 2018-07-23)
DX: E83.42 Hypomagnesemia (principal); R00.2 Palpitations; E87.6 Hypokalemia; E78.5 Hyperlipidemia, unspecified; J40 Bronchitis, not specified as acute or chronic; I95.9 Hypotension, unspecified; I10 Essential (primary) hypertension; F17.210 Nicotine dependence, cigarettes, uncomplicated; G89.29 Other chronic pain; K52.9 Noninfective gastroenteritis and colitis, unspecified; R05 Cough; M17.11 Unilateral primary osteoarthritis, right knee; M06.9 Rheumatoid arthritis, unspecified; R00.0 Tachycardia, unspecified; D64.9 Anemia, unspecified; K21.9 Gastro-esophageal reflux disease without esophagitis; Z79.82 Long term (current) use of aspirin
CPT/HCPCS: 36415; 71045-TC-FY; 80053; 82550; 83735; 84100; 84443; 84484; 84703; 85025; 85610; 85730; 87070; 87430; 87804; 93005; 93010; 94640; 96365; 96375; 99285-25; G0378; J0131; J7030; J7620

== ENCOUNTER 2018-07-31 17:32 | Inpatient (IN) | payer OTHER ==
--- NOTE | 2018-07-31 19:11 | PDOC ---
History of Present Illness - General Chief Complaint: Alcohol intoxication Stated Complaint: FALL/INTOX Time Seen by Provider: 07/31/18 18:44 History Source: Patient, Other (daughter and sister) - History of Present Illness Initial Comments: 07/31/18 19:09 Best Contact: PCP: Dr. Jamaal Kamara Pmhx: RA/HTN Pshx: ?year/lap jacinda, RTKR. c section Allergies:NKDA FH:0 Social Hx: Cigarettes/ social Alcohol/ social Drugs/ Denies LMP:07/10/2018 47-year-old female biba after being found on the floor unconscious at home as per pt's daughter. Pt's daughter states she went to do a welfare after not picking up her phone. Please department gain access and found the patient on the floor unconscious. Patient states she's been drinking alcohol all day into this evening. Patient states she remembers drinking and losing her balance waking up to EMS. Patient denies fever, chills, nausea/vomiting, headache, dizziness, lightheadedness, facial pains, neck pain/stiffness, back pains, chest pain, shortness of breath, abdominal pains, flank pains, urinary symptoms : Frequency/urgency/hesitancy, bladder or bowel dysfunction, extremity numbness or tingling sensation. Past History - Past Medical History Allergies/Adverse Reactions: Allergies Allergy/AdvReac Type Severity Reaction Status Date / Time Latex, Natural Rubber Allergy Swelling Verified 07/23/18 16:55 No Known Drug Allergies Allergy Verified 07/23/18 16:55 Home Medications: Ambulatory Orders Metoprolol Succinate [Toprol Xl] 25 mg PO DAILY 02/02/18 Aspirin [ASA -] 81 mg PO DAILY 06/21/18 Atorvastatin Ca [Lipitor] 10 mg PO HS 06/21/18 Folic Acid 1 mg PO DAILY 06/21/18 Hydrochlorothiazide [Hctz -] 12.5 mg PO DAILY 06/21/18 Anemia: Yes (Treate w/Iron suppliments in the past) Asthma: No Cancer: No Cardiac Disorders: (BENIGN HEART MURMUR A CHILD;PALPITATIONS) CVA: No COPD: No CHF: No Dementia: No Diabetes: No GI Disorders: Yes (H/O indigestion, colitis) Disorders: No HTN: Yes Hypercholesterolemia: No Liver Disease: No Seizures: No Thyroid Disease: No - Surgical History Abdominal Surgery: Yes Appendectomy: No Cardiac Surgery: No Cholecystectomy: Yes Lung Surgery: No Neurologic Surgery: No Orthopedic Surgery: Yes (SX ON BOTH ELBOWS) - Immunization History Immunization Up to Date: No (no flu shot) - Suicide/Smoking/Psychosocial Hx Smoking Status: Yes Smoking History: Current every day smoker Have you smoked in the past 12 months: Yes Number of Cigarettes Smoked Daily: 10 Information on smoking cessation initiated: No 'Breaking Loose' booklet given: 07/23/18 Hx Alcohol Use: Yes Drug/Substance Use Hx: No Substance Use Type: Alcohol Hx Substance Use Treatment: No Review of Systems - Review of Systems Able to Perform ROS?: Yes Comments:: 07/31/18 21:39 CONSTITUTIONAL: Absent: fever, chills, diaphoresis, generalized weakness, malaise, loss of appetite HEENT: Absent: rhinorrhea, nasal congestion, throat pain, throat swelling, difficulty swallowing, mouth swelling, ear pain, eye pain, visual Changes CARDIOVASCULAR: Absent: chest pain, loss of consciousness, palpitations, irregular heart rate, peripheral edema RESPIRATORY: Absent: cough, shortness of breath, dyspnea with exertion, orthopnea, wheezing, stridor, hemoptysis GASTROINTESTINAL: Absent: abdominal pain, abdominal distension, nausea, vomiting, diarrhea, constipation, melena, hematochezia GENITOURINARY: Absent: dysuria, frequency, urgency, hesitancy, hematuria, flank pain, genital pain MUSCULOSKELETAL: Absent: myalgia, arthralgia, joint swelling SKIN: Absent: rash, itching, pallor HEMATOLOGIC/IMMUNOLOGIC: Absent: easy bleeding, easy bruising, lymphadenopathy, frequent infections ENDOCRINE: Absent: unexplained weight gain, unexplained weight loss, heat intolerance, cold intolerance NEUROLOGIC: Absent: headache, focal weakness or paresthesias, dizziness, unsteady gait, seizure, mental status changes, bladder or bowel incontinence PSYCHIATRIC: Absent: anxiety, depression, suicidal or homicidal ideation, hallucinations. Is the patient limited Frisian proficient: No *Physical Exam - Vital Signs Last Vital Signs Temp Pulse Resp BP Pulse Ox 98.2 F 100 H 16 123/86 95 07/31/18 17:38 07/31/18 17:38 07/31/18 17:38 07/31/18 17:38 07/31/18 17:38 - Physical Exam Comments: 07/31/18 21:39 GENERAL: Well developed, well nourished. Awake and alert. No acute distress. HEENT: Normocephalic, atraumatic. PERRLA, EOMI. No conjunctival pallor. Sclera are non- icteric. Moist mucous membranes. Oropharynx is clear. NECK: Supple. Full ROM. No JVD. Carotid pulses 2+ and symmetric, without bruits. No thyromegaly. No lymphadenopathy. CARDIOVASCULAR: Regular rate and rhythm. No murmurs, rubs, or gallops. Distal pulses are 2+ and symmetric. PULMONARY: No evidence of respiratory distress. Lungs clear to auscultation bilaterally. No wheezing, rales or rhonchi. ABDOMINAL: Soft. Non-tender. Non-distended. No rebound or guarding. No organomegaly. Normoactive bowel sounds. MUSCULOSKELETAL Normal range of motion at all joints. No bony deformities or tenderness. No CVA tenderness. EXTREMITIES: No cyanosis. No clubbing. No edema. No calf tenderness. SKIN: Warm and dry. Normal capillary refill. No rashes. No jaundice. NEUROLOGICAL: Alert, awake, appropriate. Cranial nerves 2-12 intact. No deficits to light touch and temperature in face, upper extremities and lower extremities. No motor deficits in the in face, upper extremities and lower extremities. Normoreflexic in the upper and lower extremities. Normal speech. Toes are down- going bilaterally. Gait is normal without ataxia. PSYCHIATRIC: Cooperative. Good eye contact. Appropriate mood and affect. Heart Score/ECG Review - History History: Slightly suspicious - Electrocardiogram EKG: Normal - Age Age: >/= 65 - Risk Factors Risk Factors Heart Score: Yes Hx Obesity Based on the list above the patient has:: 1-2 risk factors ED Treatment Course - LABORATORY CBC & Chemistry Diagram: 07/31/18 19:40 07/31/18 19:40 - RADIOLOGY Radiograph Interpretation: 07/31/18 21:43 CT head w/o contrast: neg CT c spine; neg *DC/Admit/Observation/Transfer Diagnosis at time of Disposition: Alcoholic hepatitis Qualifiers: Ascites presence: unspecified Qualified Code(s): K70.10 - Alcoholic hepatitis without ascites - Discharge Dispostion Condition at time of disposition: Stable Decision to Admit order: Yes - Referrals - Patient Instructions - Post Discharge Activity Progress Note - Progress Note Progress Note: 2324hrs: Spoke to Dr. Javier/ will admit
[2018-07-31] MEDS ORDERED: SODIUM CHLORIDE 1,000 ML IV STA (19:13)
[2018-07-31] MEDS ORDERED: FOLIC ACID INJECTION - 1 MG, THIAMINE HCL 100 MG, MULTIVIT INJECTION ADULT 10 ML in SOD... IVPB ONE (19:13)
[2018-07-31 19:55] LABS: BASO % 1.6 % (0-2.0); EOS % 0.5 % (0-4.5); HEMATOCRIT 41.1 % (32.4-45.2); HEMOGLOBIN 13.6 GM/dL (10.7-15.3); LYMPH % 25.6 % (8-40); MCH 30.8 pg (25.7-33.7); MCHC 33.2 g/dl (32.0-36.0); MEAN CELL VOLUME 92.8 fl (80-96); MEAN PLT VOLUME 6.3 fl (7.5-11.1); MONO % 9.8 % (3.8-10.2); NEUT % 62.5 % (42.8-82.8); PLATELET COUNT 560 K/MM3 (134-434); RBC 4.43 M/mm3 (3.60-5.2); RDW 19.4 % (11.6-15.6); WHITE BLOOD COUNT 7.1 K/mm3 (4.0-10.0)
[2018-07-31 20:42] LABS: ALK PHOS 187 U/L (45-117); ANION GAP 13 MMOL/L (8-16); BILIRUBIN,TOTAL 0.3 mg/dL (0.2-1); BLOOD UREA NITROGEN 10 mg/dL (7-18); CALCIUM 9.1 mg/dL (8.5-10.1); CHLORIDE 109 mmol/L (98-107); CO2 25 mmol/L (21-32); CREATININE 0.4 mg/dL (0.55-1.3); GLUCOSE,RANDOM 69 mg/dL (74-106); POTASSIUM 4.2 mmol/L (3.5-5.1); SGOT/AST 762 U/L (15-37); SGPT/ALT 138 U/L (13-61); SODIUM 147 mmol/L (136-145)
[2018-07-31 21:59] LABS: AMYLASE 58 U/L (25-115); LIPASE 194 U/L (73-393)
[2018-08-01] MEDS ORDERED: DEXTROSE 5%-0.45% SALINE 1,000 ML IV SCH (05:00)
[2018-08-01 05:41] VITALS: BMI 26.6
[2018-08-01] MEDS: ACETAMINOPHEN 325 MG TABLET (FP) PO PRN ×2 (06:39→15:16)
[2018-08-01] MEDS: FOLIC ACID 1 MG TABLET (FP) PO SCH (10:36)
[2018-08-01] MEDS: ASPIRIN COATED 81 MG TABLET.EC PO SCH (10:36)
[2018-08-01] MEDS: NICOTINE 21 MG/24 HOURS TOPICAL PATCH TD SCH (10:36)
[2018-08-01] MEDS: METOPROLOL TARTRATE 25 MG TABLET (FP) PO SCH ×2 (10:36→22:07)
[2018-08-01 13:10] LABS: EOS % 0.4 % (0-4.5); HEMATOCRIT 34.2 % (32.4-45.2); HEMOGLOBIN 11.2 GM/dL (10.7-15.3); LYMPH % 17.5 % (8-40); MCH 30.1 pg (25.7-33.7); MCHC 32.7 g/dl (32.0-36.0); MEAN CELL VOLUME 92.1 fl (80-96); MEAN PLT VOLUME 6.4 fl (7.5-11.1); MONO % 7.4 % (3.8-10.2); NEUT % 73.7 % (42.8-82.8); PLATELET COUNT 478 K/MM3 (134-434); RBC 3.71 M/mm3 (3.60-5.2); RDW 18.8 % (11.6-15.6); WHITE BLOOD COUNT 4.8 K/mm3 (4.0-10.0)
[2018-08-01 14:09] LABS: ALBUMIN 2.6 g/dl (3.4-5.0); ALK PHOS 146 U/L (45-117); ANION GAP 7 MMOL/L (8-16); BILIRUBIN,TOTAL 0.4 mg/dL (0.2-1); BLOOD UREA NITROGEN 10 mg/dL (7-18); CALCIUM 7.9 mg/dL (8.5-10.1); CHLORIDE 111 mmol/L (98-107); CO2 25 mmol/L (21-32); CREATININE 0.6 mg/dL (0.55-1.3); GLUCOSE,RANDOM 131 mg/dL (74-106); SGOT/AST 222 U/L (15-37); SGPT/ALT 99 U/L (13-61); SODIUM 143 mmol/L (136-145)
[2018-08-01 17:11] LABS: PROTHROMBIN TIME (PATIENT) 11.8 SEC (9.7-13.0)
[2018-08-01] MEDS: DEXTROSE 5%-0.45% SALINE 1,000 ML IV SCH ×2 (18:00→23:20)
[2018-08-01] MEDS ORDERED: ATORVASTATIN CA 10 MG TABLET (FP) PO SCH (22:00)
[2018-08-01] MEDS: HEPARIN NA (PORCINE) 5,000 UNITS/ML 1ML VIAL SQ SCH (22:07)
[2018-08-01 22:38] LABS: URINE APPEARANCE CLEAR; URINE BILIRUBIN NEGATIVE (<2.0 mg/dL); URINE COLOR LTYELLOW; URINE GLUCOSE (UA) NEGATIVE (NEGATIVE); URINE KETONE NEGATIVE (NEGATIVE); URINE LEUK ESTERASE NEGATIVE (NEGATIVE); URINE NITRITE NEGATIVE (NEGATIVE); URINE PROTEIN NEGATIVE (NEGATIVE); URINE UROBILINOGEN NEGATIVE mg/dL (0.2-1.0)
[2018-08-01 22:40] LABS: HCG,QUALITATIVE URINE Negative
--- NOTE | 2018-08-01 23:03 | HP ---
Admitting History and Physical - Past Medical History Cardiovascular: Yes: HTN, Hyperlipdemia, Murmur Gastrointestinal: Yes: GERD Heme/Onc: Yes: Anemia Musculoskeletal: Yes: Osteoarthritis Rheumatology: Yes: Rheumatoid Arthritis - Past Surgical History Past Surgical History: Yes: Cholecystectomy (laparoscopic), - Smoking History Smoking history: Current every day smoker Have you smoked in the past 12 months: Yes Aproximately how many cigarettes per day: 10 - Alcohol/Substance Use Hx Alcohol Use: Yes History of Substance Use: reports: None - Social History ADL: Independent Occupation: Unemployed History of Recent Travel: No Home Medications - Allergies Allergies/Adverse Reactions: Allergies Allergy/AdvReac Type Severity Reaction Status Date / Time Latex, Natural Rubber Allergy Swelling Verified 07/23/18 16:55 No Known Drug Allergies Allergy Verified 07/23/18 16:55 - Home Medications Home Medications: Ambulatory Orders Metoprolol Succinate [Toprol Xl] 25 mg PO DAILY 02/02/18 Aspirin [ASA -] 81 mg PO DAILY 06/21/18 Atorvastatin Ca [Lipitor] 10 mg PO HS 06/21/18 Folic Acid 1 mg PO DAILY 06/21/18 Hydrochlorothiazide [Hctz -] 12.5 mg PO DAILY 06/21/18 Family Disease History - Family Disease History Family Disease History: Diabetes: Mother (Alive: DM II), Other: Father (Alive: healthy), Mother, Brother (6, healthy), Sister (1, healthy), Son (2, healthy), Daughter (1, healthy) Physical Examination Vital Signs: Vital Signs Temperature 98.3 F 08/01/18 18:09 Pulse Rate 81 08/01/18 18:09 Respiratory Rate 18 08/01/18 18:09 Blood Pressure 136/83 08/01/18 18:09 O2 Sat by Pulse Oximetry (%) 96 08/01/18 09:00 Labs: CBC, BMP 08/01/18 12:58 08/01/18 12:58
[2018-08-01] MEDS: diphenhydrAMINE HCL 25 MG CAPSULE (FP) PO PRN (23:18)
[2018-08-02 07:50] LABS: EOS % 0.6 % (0-4.5); HEMATOCRIT 34.2 % (32.4-45.2); HEMOGLOBIN 11.1 GM/dL (10.7-15.3); LYMPH % 23.9 % (8-40); MCH 30.1 pg (25.7-33.7); MCHC 32.4 g/dl (32.0-36.0); MEAN CELL VOLUME 92.9 fl (80-96); MEAN PLT VOLUME 6.9 fl (7.5-11.1); MONO % 11.1 % (3.8-10.2); NEUT % 63.4 % (42.8-82.8); PLATELET COUNT 427 K/MM3 (134-434); RBC 3.68 M/mm3 (3.60-5.2); WHITE BLOOD COUNT 5.2 K/mm3 (4.0-10.0)
[2018-08-02] MEDS: FOLIC ACID 1 MG TABLET (FP) PO SCH (08:59)
[2018-08-02] MEDS: NICOTINE 21 MG/24 HOURS TOPICAL PATCH TD SCH (08:59)
[2018-08-02] MEDS: ASPIRIN COATED 81 MG TABLET.EC PO SCH (08:59)
[2018-08-02] MEDS: METOPROLOL TARTRATE 25 MG TABLET (FP) PO SCH ×2 (08:59→22:17)
[2018-08-02] MEDS: HEPARIN NA (PORCINE) 5,000 UNITS/ML 1ML VIAL SQ SCH ×3 (08:59→22:17)
[2018-08-02 09:39] LABS: ALBUMIN 2.6 g/dl (3.4-5.0); ALK PHOS 127 U/L (45-117); ANION GAP 8 MMOL/L (8-16); BILIRUBIN,TOTAL 0.5 mg/dL (0.2-1); BLOOD UREA NITROGEN 4 mg/dL (7-18); CALCIUM 8.5 mg/dL (8.5-10.1); CHLORIDE 108 mmol/L (98-107); CO2 24 mmol/L (21-32); CREATININE 0.5 mg/dL (0.55-1.3); GLUCOSE,RANDOM 96 mg/dL (74-106); POTASSIUM 3.8 mmol/L (3.5-5.1); SGOT/AST 104 U/L (15-37); SGPT/ALT 73 U/L (13-61); SODIUM 140 mmol/L (136-145); TOT PROT 5.9 g/dl (6.4-8.2)
[2018-08-02] MEDS: DEXTROSE 5%-0.45% SALINE 1,000 ML IV SCH ×2 (10:30→22:17)
--- NOTE | 2018-08-02 10:58 | EKG ---
Test Reason : Blood Pressure : / mmHG Vent. Rate : 090 BPM Atrial Rate : 090 BPM P-R Int : 194 ms QRS Dur : 070 ms QT Int : 378 ms P-R-T Axes : 052 -06 035 degrees QTc Int : 462 ms NORMAL SINUS RHYTHM POSSIBLE LEFT ATRIAL ENLARGEMENT SEPTAL INFARCT (CITED ON OR BEFORE 31-JUL-2018) ABNORMAL ECG WHEN COMPARED WITH ECG OF 25-JUL-2018 09:54, NO SIGNIFICANT CHANGE WAS FOUND Confirmed by ABIEL GARCIA MD ([id number]) on 08/02/2018 10:57:37 AM Referred By: Confirmed By:ABIEL GARCIA MD
--- NOTE | 2018-08-02 15:25 | CONS ---
DATE OF CONSULTATION: DATE OF DICTATION: 08/02/2018 The patient is a 47-year-old female with a past medical history of hypertension, hyperlipidemia, reflux disease, cholecystectomy, and section, who states she drinks alcohol twice a week and was drinking yesterday and apparently was watching TV, and the next thing she knew, she was on the floor, found by her children, who brought her to the emergency room for further evaluation. Of note, she admits to having an abnormal stress test about a week ago and should be scheduled for an angiogram as an outpatient. She denies any abdominal pain, nausea, vomiting, history of liver disease, herbal supplements, new medications except for Ambien, which was recently started. No tattoos, sexual promiscuity, or blood transfusions. She states she is feeling better at this time. She denies any blood in the stool, or weight loss. She had an upper endoscopy 3 years ago she reports as negative. Past medical and surgical history as listed in the HPI. ALLERGIES: LATEX, RUBBER. No actual drug allergies. SOCIAL HISTORY: Smokes cigarettes. No intravenous drug abuse. Drinks alcohol twice a week. She states she drinks cocktails including vodka, as well as beers. REVIEW OF SYSTEMS: Negative except for pertinent positives listed in the HPI. PHYSICAL EXAMINATION: Vital Signs: Temperature 98, pulse 60, respiratory rate 12, blood pressure 150/87, pulse oximetry 98% on room air. General: No acute distress. Pleasant female. HEENT: Anicteric sclerae. Cardiovascular: S1, S2, regular rate and rhythm. Lungs: Bilaterally clear to auscultation. Abdomen: Soft, nontender. Extremities: No edema. LABORATORY DATA: White blood cell count 5.2, hemoglobin 11, hematocrit 34, MCV 92, platelet count 427, INR 1. Sodium 140, potassium 3.8, BUN 4, creatinine 0.5, chloride 108, total bilirubin 0.5, AST on the 12th was 762 and the ALT 138. Currently her AST is 104 and ALT 73, alkaline phosphatase 127, bilirubin 0.5, amylase and lipase within normal limits. Urinalysis is negative. Her alcohol was 341 on the 12th. She had an ultrasound of the abdomen, which revealed diffuse hepatic steatosis, no change from 2013, except for interval cholecystectomy. Common bile duct was dilated, measuring 1.1 cm, noted above, questionably secondary to cholecystectomy state. IMPRESSION: Transaminitis, hepatocellular pattern, with the AST much greater than the ALT, most likely secondary to alcoholic steatohepatitis. Discriminant function is less than 32 and does not meet criteria for steroid or Trental therapy at this time. RECOMMENDATION: Trend liver tests daily while hospitalized. Will also order an MRI, MRCP for completeness and evaluation of the biliary tree. Will also order serologies for chronic inherited liver disease, avoid hepatotoxic medications. Considering she is scheduled for an outpatient angiogram as per her history, would obtain a cardiology evaluation while she is in the hospital, in case her episode of syncope was not entirely related to her alcohol abuse. Diet as tolerated. For dyspeptic symptoms, would use Pepcid 20 mg IV b.i.d. This patient will be followed by the GI service. DO PRAVEEN MONTE/[id number]
[2018-08-02] MEDS: diphenhydrAMINE HCL 25 MG CAPSULE (FP) PO PRN (23:19)
--- NOTE | 2018-08-02 23:28 | PN ---
Progress Note, Physician History of Present Illness: No new complaints - Current Medication List Current Medications: Active Medications Acetaminophen (Tylenol -) 650 mg PO Q6H PRN PRN Reason: FEVER/PAIN LEVEL 1 - 5 Last Admin: 08/01/18 15:16 Dose: 650 mg Aspirin (Ecotrin -) 81 mg PO DAILY [facility] Last Admin: 08/02/18 08:59 Dose: 81 mg Diphenhydramine HCl (Benadryl -) 50 mg PO HS PRN PRN Reason: INSOMNIA Last Admin: 08/02/18 23:19 Dose: 50 mg Folic Acid (Folic Acid -) 1 mg PO DAILY [facility] Last Admin: 08/02/18 08:59 Dose: 1 mg Heparin Sodium (Porcine) (Heparin -) 5,000 unit SQ BID [facility] Last Admin: 08/02/18 22:17 Dose: Not Given Dextrose/Sodium Chloride (D5-1/2ns -) 1,000 mls @ 75 mls/hr IV ASDIR [facility] Last Admin: 08/02/18 22:17 Dose: 75 mls/hr Metoprolol Tartrate (Lopressor -) 25 mg PO BID [facility] Last Admin: 08/02/18 22:17 Dose: 25 mg Nicotine (Nicoderm Patch -) 21 mg TD DAILY [facility] Last Admin: 08/02/18 08:59 Dose: 21 mg - Objective Vital Signs: Vital Signs Temperature 98.7 F 08/02/18 18:21 Pulse Rate 73 08/02/18 18:21 Respiratory Rate 18 08/02/18 18:21 Blood Pressure 151/98 08/02/18 18:21 O2 Sat by Pulse Oximetry (%) 98 08/02/18 09:00 HENT: Yes: WNL Neck: Yes: WNL, Supple Cardiovascular: Yes: WNL, Regular Rate and Rhythm Respiratory: Yes: WNL, Regular, CTA Bilaterally Gastrointestinal: Yes: WNL, Normal Bowel Sounds, Soft Labs: CBC, BMP 08/02/18 07:15 08/02/18 07:30 INR, PTT INR 1.00 (0.83-1.09) 08/01/18 15:50 Problem List - Problems (1) Elevated LFTs Assessment/Plan: Probable alcoholic hepatitis Cont to trend LFT's As per GI MRCP DC planning for am Long D/W pt about etoh use and need to dc etoh Code(s): R94.5 - ABNORMAL RESULTS OF LIVER FUNCTION STUDIES (2) Alcohol intoxication Assessment/Plan: No sign of withdrawal Cont to monitor Code(s): F10.929 - ALCOHOL USE, UNSPECIFIED WITH INTOXICATION, UNSPECIFIED (3) HTN (hypertension) Assessment/Plan: BP stable Cont metoprolol Code(s): I10 - ESSENTIAL (PRIMARY) HYPERTENSION (4) HLD (hyperlipidemia) Code(s): E78.5 - HYPERLIPIDEMIA, UNSPECIFIED (5) Rheumatoid arthritis Code(s): M06.9 - RHEUMATOID ARTHRITIS, UNSPECIFIED
[2018-08-03 07:36] LABS: EOS % 1.1 % (0-4.5); HEMATOCRIT 34.7 % (32.4-45.2); HEMOGLOBIN 11.2 GM/dL (10.7-15.3); LYMPH % 31.1 % (8-40); MCH 29.9 pg (25.7-33.7); MCHC 32.1 g/dl (32.0-36.0); MEAN CELL VOLUME 93.2 fl (80-96); MEAN PLT VOLUME 7.3 fl (7.5-11.1); NEUT % 55.8 % (42.8-82.8); PLATELET COUNT 452 K/MM3 (134-434); RBC 3.73 M/mm3 (3.60-5.2); RDW 18.5 % (11.6-15.6); WHITE BLOOD COUNT 4.7 K/mm3 (4.0-10.0)
[2018-08-03 07:54] LABS: ALBUMIN 2.8 g/dl (3.4-5.0); ALK PHOS 119 U/L (45-117); ANION GAP 6 MMOL/L (8-16); BILIRUBIN,TOTAL 0.4 mg/dL (0.2-1); BLOOD UREA NITROGEN 4 mg/dL (7-18); CALCIUM 8.8 mg/dL (8.5-10.1); CHLORIDE 108 mmol/L (98-107); CO2 26 mmol/L (21-32); CREATININE 0.4 mg/dL (0.55-1.3); GLUCOSE,RANDOM 92 mg/dL (74-106); SGOT/AST 61 U/L (15-37); SGPT/ALT 56 U/L (13-61); SODIUM 140 mmol/L (136-145); TOT PROT 6.3 g/dl (6.4-8.2)
[2018-08-03] MEDS: HEPARIN NA (PORCINE) 5,000 UNITS/ML 1ML VIAL SQ SCH (10:18)
[2018-08-03] MEDS: FOLIC ACID 1 MG TABLET (FP) PO SCH (10:18)
[2018-08-03] MEDS: ASPIRIN COATED 81 MG TABLET.EC PO SCH (10:18)
[2018-08-03] MEDS: NICOTINE 21 MG/24 HOURS TOPICAL PATCH TD SCH (10:18)
[2018-08-03] MEDS: METOPROLOL TARTRATE 25 MG TABLET (FP) PO SCH (10:18)
[2018-08-03 10:28] VITALS: BP 140/94; PULSE 85; TEMP 98.8
[2018-08-04 06:06] LABS: HBSAG SCREEN Negative (Negative); HEP B CORE AB, TOT Negative (Negative); HEPATITIS B CORE ANTIBODY,IGM Negative (Negative)
[2018-08-05 00:07] LABS: HEP A AB, IGM Negative (Negative); HEP B CORE AB, IGM Negative (Negative); HEP B CORE AB, TOT Negative (Negative)
== END 2018-08-03 11:31 | disposition home or self-care (01) | DRG 280 ==
LOC: JER 17:32 → JERBED 08-01 00:59 → J5S 08-01 04:36 → OBSVTOIN 08-01 12:18
PROVIDERS: ADMIT Internal Medicine; ATTEND Internal Medicine
DX: K70.10 Alcoholic hepatitis without ascites (principal); F10.929 Alcohol use, unspecified with intoxication, unspecified; I10 Essential (primary) hypertension; E78.5 Hyperlipidemia, unspecified; M06.9 Rheumatoid arthritis, unspecified; F17.210 Nicotine dependence, cigarettes, uncomplicated; R94.5 Abnormal results of liver function studies
CPT/HCPCS: 36415; 70450-TC; 72125-TC; 74181-TC; 76705-TC; 80053; 80307; 81003; 82150; 83516; 83540; 83690; 84703; 85025; 85610; 86038; 86704; 86705; 86706; 86707; 86708; 87340; 87522; 93005; 93010; 99283-25; G0378; J1644; J7030

== ENCOUNTER 2018-12-04 18:30 | Inpatient (IN) | payer OTHER ==
[2018-12-04] MEDS ORDERED: SODIUM CHLORIDE 1,000 ML IV STA ×2 (19:19→22:08)
[2018-12-04] MEDS ORDERED: FAMOTIDINE 20 MG/50 ML IVPB 20 MG/50 ML MG IVPB ONE (19:19)
[2018-12-04] MEDS ORDERED: ONDANSETRON 4 MG/2 ML VIAL IVPUSH ONE (19:19)
--- NOTE | 2018-12-04 19:23 | PDOC ---
Attending Attestation - HPI HPI: 12/04/18 19:35 The patient is a 48 year old female, with a significant PMH of hypertension, RA , anemia, EtOH abuse and GERD who presents to the emergency department with 2 days of nausea with emesis (non bloody non bilious). The patient states she has been taking Augmentin for a persistent cough which she attributes to making her nauseous. The patent also reports 1 episode of diarrhea (non bloody) yesterday. The patient denies any recent lip swelling, hives or rash. The patient states her last alcoholic drink was yesterday when she had pineapple vodka. The patient denies chest pain, shortness of breath, headache and dizziness. Denies fever, chills and constipation. Denies dysuria, frequency, urgency and hematuria. Allergies: latex, natural rubber, NKDA Past surgical history: cholecystectomy Social history: No reported PCP: Dr Jamaal Kamara Documentation prepared by Prosper Valdez, acting as medical voucher clerk for Sylvia Rowan MD. - Physicial Exam PE: 12/04/18 20:03 GENERAL: Awake, alert, and fully oriented, in no acute distress HEAD: No signs of trauma EYES: PERRLA, EOMI, sclera anicteric, conjunctiva clear ENT: No tongue fasciculations. Auricles normal inspection, hearing grossly normal, nares patent, oropharynx clear without exudates. Moist mucosa NECK: Normal ROM, supple, no lymphadenopathy, JVD, or masses LUNGS: Breath sounds equal, clear to auscultation bilaterally. No wheezes, and no crackles HEART: (+) Tachycardic. Regular rhythm, normal S1 and S2, no murmurs, rubs or gallops ABDOMEN: Soft, nontender, normoactive bowel sounds. No guarding, no rebound. No masses. No flank pain. EXTREMITIES: (+) Right knee replacement. (+) Left knee is swollen secondary to RA. No pitting edema in lower extremities bilaterally. (+) Valgus deformity of the fingers bilaterally due to RA. Normal range of motion. No clubbing or cyanosis. No cords, erythema, or tenderness NEUROLOGICAL: Cranial nerves II through XII grossly intact. Normal speech, normal gait SKIN: Warm, Dry, normal turgor, no rashes or lesions noted. <Prosper Valdez - Last Filed: 12/04/18 20:09> - Resident Resident Name: Karlos Amin - ED Attending Attestation I have performed the following: I have examined & evaluated the patient, The case was reviewed & discussed with the resident, I agree w/resident's findings & plan - Medical Decision Making 12/04/18 20:06 Pt states that she was feeling fine today. She had no nausea and no vomiting. She ate and went to her orthopedist for a knee appt. SHe is wondering whether to schedule a knee replacement on the left side. Pt states that she came home and ate and felt that so long as she has food in her stomach, she would take the 875mg augmentin that had been prescribed for her pneumonia by her PMD. (Pt is a smoker) Pt states that she began to vomit witht he augmentin, as she has been doing for the past couple days. She has no fever and no cough at this time. 12/04/18 21:11 Pt states every time I go into the room that she doesn't want to stay in the hospital. She has a K+ od 2.5; we will give K+ and Mag. 12/04/18 22:47 Pt is admitted to Dr. Javier, telemetry unit for hypokalemia, weakness and vomiting. 12/04/18 23:18 Pt feels well and she is stable at this time. <Sylvia Rowan - Last Filed: 12/04/18 23:19> Heart Score/ECG Review - ECG Intrepretation Rhythm: Irregularly Irregular - QRS Q Wave Present: Yes - ST and T Non Specific ST-T Wave changes: Yes ST Depression Suggest: Ischemia - ECG Impressions Normal ECG: No Non-specific ST Elevation: Yes Tachycardia: Afib w/rapid Vent rate <Sylvia Rowan - Last Filed: 12/04/18 23:19>
[2018-12-04] MEDS ORDERED: ONDANSETRON 4 MG/2 ML VIAL ONE (19:27)
--- NOTE | 2018-12-04 19:46 | PDOC ---
History of Present Illness - General Chief Complaint: Nausea/Vomiting Stated Complaint: Nausea/Vomiting Time Seen by Provider: 12/04/18 19:08 History Source: Patient Exam Limitations: No Limitations - History of Present Illness Initial Comments: 12/04/18 19:53 Patient is a 48F with history of likely etoh abuse, HTN, anemia, arthritis, GERD , s/p cholecystectomy here today complaining of multiple episodes of vomiting that started yesterday. Patient reports having 2 vodka drinks yesterday for . Endorses small amount of bright red blood in vomit. No sick contacts. Denies chest pain, shortness of breath. Patient states that she has issues with tachycardia, and was due for a cardiac cath next week. Denies fevers , chills. Endorses one episode of diarrhea. Denies abdominal pain. Endorses dysuria, attributes to wiping to hard. Patient attributes vomiting to taking augmentin, which was prescribed for bronchitis. Past History - Past Medical History Allergies/Adverse Reactions: Allergies Allergy/AdvReac Type Severity Reaction Status Date / Time Latex, Natural Rubber Allergy Swelling Verified 12/04/18 18:34 No Known Drug Allergies Allergy Verified 12/04/18 18:34 Home Medications: Ambulatory Orders Metoprolol Succinate [Toprol Xl] 25 mg PO DAILY 02/02/18 Aspirin [ASA -] 81 mg PO DAILY 06/21/18 Folic Acid 1 mg PO DAILY 06/21/18 Hydrochlorothiazide [Hctz -] 12.5 mg PO DAILY 06/21/18 Aspirin Coated [Ecotrin -] 81 mg PO DAILY tablet.ec 08/03/18 Atorvastatin Ca [Lipitor] 10 mg PO HS tablet 08/03/18 Folic Acid - 1 mg PO DAILY tablet 08/03/18 Anemia: Yes (Treate w/Iron suppliments in the past) Asthma: No Cancer: No Cardiac Disorders: (BENIGN HEART MURMUR A CHILD;PALPITATIONS) CVA: No COPD: No CHF: No Dementia: No Diabetes: No GI Disorders: Yes (H/O indigestion, colitis) Disorders: No HTN: Yes Hypercholesterolemia: No Liver Disease: No Seizures: No Thyroid Disease: No - Surgical History Abdominal Surgery: Yes Appendectomy: No Cardiac Surgery: No Cholecystectomy: Yes Lung Surgery: No Neurologic Surgery: No Orthopedic Surgery: Yes (SX ON BOTH ELBOWS) - Immunization History Immunization Up to Date: No (no flu shot) - Suicide/Smoking/Psychosocial Hx Smoking Status: Yes Smoking History: Never smoked Have you smoked in the past 12 months: Yes Number of Cigarettes Smoked Daily: 10 'Breaking Loose' booklet given: 07/23/18 Hx Alcohol Use: Yes Drug/Substance Use Hx: No Substance Use Type: Alcohol Hx Substance Use Treatment: No Review of Systems - Review of Systems Able to Perform ROS?: Yes Comments:: 12/04/18 20:03 GENERAL/CONSTITUTIONAL: No fever or chills. No weakness. HEAD, EYES, EARS, NOSE AND THROAT: No change in vision. No sore throat. CARDIOVASCULAR: No chest pain or shortness of breath RESPIRATORY: +cough,no wheezing, or hemoptysis. GASTROINTESTINAL: +nausea, +vomiting, +diarrhea no constipation. GENITOURINARY: No dysuria, frequency, or change in urination. MUSCULOSKELETAL: No joint or muscle swelling or pain. No neck or back pain. SKIN: No rash NEUROLOGIC: No headache, vertigo, loss of consciousness, or change in strength/ sensation. ENDOCRINE: No increased thirst. No abnormal weight change HEMATOLOGIC/LYMPHATIC: No anemia, easy bleeding, or history of blood clots. ALLERGIC/IMMUNOLOGIC: No hives or skin allergy. *Physical Exam - Vital Signs Last Vital Signs Temp Pulse Resp BP Pulse Ox 97.8 F 112 H 16 146/107 H 99 12/04/18 18:34 12/04/18 18:34 12/04/18 18:34 12/04/18 18:34 12/04/18 18:34 - Physical Exam Comments: 12/04/18 20:05 GENERAL: Awake, alert, and fully oriented, in no acute distress HEAD: No signs of trauma, normocephalic, atraumatic EYES: PERRLA, EOMI, sclera anicteric, conjunctiva clear ENT: Auricles normal inspection, hearing grossly normal, nares patent, oropharynx clear without exudates. Moist mucosa NECK: Normal ROM, supple, no lymphadenopathy, JVD, or masses LUNGS: No distress, speaks full sentences, clear to auscultation bilaterally HEART: Regular rate and rhythm, normal S1 and S2, no murmurs, rubs or gallops, peripheral pulses normal and equal bilaterally. ABDOMEN: Soft, nontender, normoactive bowel sounds. No guarding, no rebound. No masses EXTREMITIES: R knee swelling, hand deformities consistent with RA, Normal range of motion, no edema. No clubbing or cyanosis. NEUROLOGICAL: Cranial nerves II through XII grossly intact. Normal speech, no focal sensorimotor deficits SKIN: Warm, Dry, normal turgor, no rashes or lesions noted. Moderate Sedation - Procedure Monitoring Vital Signs: Procedure Monitoring Vital Signs Temperature 97.8 F 12/04/18 18:34 Pulse Rate 112 H 12/04/18 18:34 Respiratory Rate 16 12/04/18 18:34 Blood Pressure 146/107 H 12/04/18 18:34 O2 Sat by Pulse Oximetry (%) 99 12/04/18 18:34 ED Treatment Course - LABORATORY CBC & Chemistry Diagram: 12/04/18 20:08 12/04/18 20:00 - RADIOLOGY Radiology Studies Ordered: Category Date Time Status CHEST X-RAY PORTABLE* [RAD] Stat Radiology 12/04/18 19:20 Ordered Medical Decision Making - Medical Decision Making 12/04/18 20:08 Patient is 48F with history of etoh abuse, htn, anemia, ra/oa, GERD, cholecystectomy here today with vomiting. Vitals notable for tachycardia. DDx includes, but is not limited to: gastritis, atypical acs, alcoholic hepatitis. Recent MRCP normal. Abdominal labs drawn. Will treat with zofran, fluids, pepcid. EKG shows sinus tachycardia with rate of 127. ST depressions in I, II, aVF, V4, V5, V6. Q waves in v1/v2. QTc prolonged to 572. Zofran given before qtc noted, will hold further doses. 12/04/18 21:17 K 2.5, mag added to initial lab draw. CBC shows likely hemoconcentration. Given 40meq po and mag. 12/04/18 21:55 Mag 1.0. D/W Yaya, admitted to tele. *DC/Admit/Observation/Transfer Diagnosis at time of Disposition: Hypokalemia, ST segment depression - Discharge Dispostion Condition at time of disposition: Stable Decision to Admit order: Yes - Referrals Referrals: Jamaal Kamara MD [Primary Care Provider] - - Patient Instructions - Post Discharge Activity
[2018-12-04 20:28] LABS: BASO % 0.2 % (0-2.0); EOS % 0.1 % (0-4.5); HEMATOCRIT 45.3 % (32.4-45.2); HEMOGLOBIN 15.5 GM/dL (10.7-15.3); LYMPH % 5.4 % (8-40); MCHC 34.1 g/dl (32.0-36.0); MEAN PLT VOLUME 8.4 fl (7.5-11.1); MONO % 5.5 % (3.8-10.2); NEUT % 88.8 % (42.8-82.8); PLATELET COUNT 111 K/MM3 (134-434); RBC 5.33 M/mm3 (3.60-5.2); RDW 23.2 % (11.6-15.6); WHITE BLOOD COUNT 10.3 K/mm3 (4.0-10.0)
[2018-12-04 20:37] LABS: INR 1.05 (0.83-1.09); PROTHROMBIN TIME (PATIENT) 12.4 SEC (9.7-13.0)
[2018-12-04 21:01] LABS: ALBUMIN 3.8 g/dl (3.4-5.0); ALK PHOS 97 U/L (45-117); ANION GAP 9 MMOL/L (8-16); BILIRUBIN,TOTAL 1.2 mg/dL (0.2-1); BLOOD UREA NITROGEN 11 mg/dL (7-18); CALCIUM 8.8 mg/dL (8.5-10.1); CHLORIDE 94 mmol/L (98-107); CO2 33 mmol/L (21-32); CREATININE 0.6 mg/dL (0.55-1.3); GLUCOSE,RANDOM 142 mg/dL (74-106); LIPASE 135 U/L (73-393); SGOT/AST 50 U/L (15-37); SGPT/ALT 26 U/L (13-61); SODIUM 136 mmol/L (136-145); TOT PROT 7.9 g/dl (6.4-8.2)
[2018-12-04 21:03] LABS: POTASSIUM 2.5 mmol/L (3.5-5.1)
[2018-12-04] MEDS ORDERED: MAGNESIUM SULF 50% (8.12 MEQ/2 ML-1 GM VIAL) IVPB ONE (21:05)
[2018-12-04] MEDS ORDERED: POTASSIUM CHLORIDE TABS 20 MEQ TABLET.ER (FP) PO ONE (21:05)
[2018-12-04 21:07] LABS: ANISOCYTOSIS 3+; PLATELET ESTIMATE DECREASED
[2018-12-04] MEDS ORDERED: KCL 10 MEQ IVPB 10 MEQ/100 ML INFUS.BAG IVPB ONE (23:47)
[2018-12-04] MEDS: KCL 10 MEQ IVPB 10 MEQ/100 ML INFUS.BAG IVPB SCH ×2 (23:55→23:56)
[2018-12-05] MEDS ORDERED: POTASSIUM CHLORIDE TABS 20 MEQ TABLET.ER (FP) PO ONE (01:20)
[2018-12-05] MEDS ORDERED: ONDANSETRON 4 MG/2 ML VIAL IVPUSH PRN (03:37)
[2018-12-05] MEDS ORDERED: DEXTROSE 5%-0.45% SALINE 1,000 ML IV SCH (03:45)
[2018-12-05] MEDS ORDERED: METHOTREXATE SODIUM PO SCH (03:45)
[2018-12-05 04:24] VITALS: BMI 27.1
[2018-12-05] MEDS: KETOROLAC TROMETHAMINE 30 MG/1 ML VIAL IVPUSH PRN ×2 (04:42→22:00)
[2018-12-05 07:20] LABS: BASO % 0.5 % (0-2.0); EOS % 1.8 % (0-4.5); HEMATOCRIT 38.2 % (32.4-45.2); HEMOGLOBIN 12.6 GM/dL (10.7-15.3); LYMPH % 35.1 % (8-40); MCH 28.1 pg (25.7-33.7); MEAN CELL VOLUME 85.2 fl (80-96); MEAN PLT VOLUME 8.5 fl (7.5-11.1); MONO % 4.9 % (3.8-10.2); NEUT % 57.7 % (42.8-82.8); PLATELET COUNT 86 K/MM3 (134-434); RBC 4.48 M/mm3 (3.60-5.2); WHITE BLOOD COUNT 5.5 K/mm3 (4.0-10.0)
[2018-12-05 08:01] LABS: ALBUMIN 2.8 g/dl (3.4-5.0); ALK PHOS 64 U/L (45-117); AMYLASE 44 U/L (25-115); ANION GAP 8 MMOL/L (8-16); BILIRUBIN,TOTAL 0.8 mg/dL (0.2-1); BLOOD UREA NITROGEN 9 mg/dL (7-18); CALCIUM 7.8 mg/dL (8.5-10.1); CHLORIDE 101 mmol/L (98-107); CO2 30 mmol/L (21-32); CREATININE 0.6 mg/dL (0.55-1.3); GLUCOSE,RANDOM 104 mg/dL (74-106); LIPASE 165 U/L (73-393); SGOT/AST 30 U/L (15-37); SGPT/ALT 16 U/L (13-61); SODIUM 139 mmol/L (136-145); TOT PROT 5.8 g/dl (6.4-8.2)
--- NOTE | 2018-12-05 09:22 | CON.CARD ---
Consult Consult Specialty:: Cardiology Referred by:: Dr. Javier Reason for Consultation:: ECG changes, hypo K+ - History of Present Illness Chief Complaint: Nausea, vomiting and diarrhea History of Present Illness: 48 F with RA, CAD (+ nuclear stress in March 2018- has not been compliant with scheduling cath), Moderate AR, previous admissions with prolonged QT in setting of hypoK+ due to diarrhea now presents with several days of nausea, vomiting and diarrhea after starting Augmentin for URI. Denies CP, SOB, Palpitations. K+ was found to be markedly low with ECG changes including Prolonged QT [address] changes. She was admitted to telemetry for monitoring and potassium repletion. - History Source History Provided By: Patient - Past Medical History Cardio/Vascular: Yes: CAD, HTN, Hyperlipdemia, Murmur (Aortic regurg- moderate) Gastrointestinal: Yes: GERD ...: No Musculoskeletal: Yes: Osteoarthritis Rheumatology: Yes: Rheumatoid Arthritis - Past Surgical History Past Surgical History: Yes: Cholecystectomy (laparoscopic), - Alcohol/Substance Use Hx Alcohol Use: Yes History of Substance Use: reports: None - Smoking History Smoking history: Current every day smoker Have you smoked in the past 12 months: Yes Aproximately how many cigarettes per day: 10 - Social History Usual Living Arrangement: Alone ADL: Independent Occupation: Unemployed History of Recent Travel: No Home Medications - Allergies Allergies/Adverse Reactions: Allergies Allergy/AdvReac Type Severity Reaction Status Date / Time Latex, Natural Rubber Allergy Swelling Verified 12/04/18 18:34 No Known Drug Allergies Allergy Verified 12/04/18 18:34 - Home Medications Home Medications: Ambulatory Orders Metoprolol Succinate [Toprol Xl] 25 mg PO BID 02/02/18 Aspirin [ASA -] 81 mg PO DAILY 06/21/18 Hydrochlorothiazide [Hctz -] 12.5 mg PO DAILY 06/21/18 Atorvastatin Ca [Lipitor] 10 mg PO HS tablet 08/03/18 Folic Acid - 1 mg PO DAILY tablet 08/03/18 Methotrexate Sodium [Trexall] 80 mg PO WEEKLY 12/05/18 Family Disease History - Family Disease History Family Disease History: Diabetes: Mother (Alive: DM II), Other: Father (Alive: healthy), Mother, Brother (6, healthy), Sister (1, healthy), Son (2, healthy), Daughter (1, healthy) Review of Systems Findings/Remarks: see HPI - Review of Systems Eyes: denies: No Symptoms, Blind Spots, Blurred Vision, Double Vision, Eye Pain , Floaters, Photophobia, Recent Change in Vision, Other HENT: denies: No Symptoms, Difficult Swallowing, Ear Discharge, Ear Pain, Epistaxis, Gingival Bleeding, Hearing Loss, Mouth Swelling, Nasal Congestion, Ocular Prosthesis, Throat Pain, Toothache, Ringing in Ears, Other Neck: denies: No Symptoms, Decreased ROM, Lumps, Pain on Movement, Stiffness, Swollen Glands, Tenderness, Other Cardiovascular: denies: No Symptoms, Chest Pain, Edema, Palpitations, Shortness of Breath, Other Gastrointestinal: reports: Diarrhea, Nausea, Vomiting Genitourinary: denies: No Symptoms, Burning, Discharge, Dysuria, Flank Pain, Frequency, Hematuria, Incontinence, Lesions, Menses, Pain, Testicular Mass, Testicular Pain, Testicular Swelling, Urgency, Vaginal Bleeding, Other Breasts: denies: No Symptoms Reported, See HPI, Breast Implants, Discharge from Nipple, Lumps, Pain, Skin Changes, Other Musculoskeletal: denies: No Symptoms, Back Pain, Crepitus, Decreased ROM, Extremity Pain, Joint Pain, Joint Swelling, Muscle Pain, Muscle Cramps, Muscle Weakness, Other Integumentary: denies: No Symptoms, Blister, Bruising, Change in Color, Eczema, Erythema, Incision, Lesions, Lump, Pallor, Pruritis, Rash, Wound, Other Neurological: denies: No Symptoms, Change in LOC, Change in Speech, Confusion, Dizziness, Headache, Incoordination, Numbness, Parasthesia, Pre-Existing Deficit , Seizure, Syncope, Tremors, Unsteady Gait, Weakness, Other Endocrine: denies: No Symptoms, Excessive Sweating, Flushing, Increased Hunger, Increased Thirst, Intolerance to Cold, Intolerance to Heat, Unexplained Weight Gain, Unexplained Weight Loss, Other Psychiatric: denies: No Symptoms, Altered Sleep Pattern, Anxiety, Depression, Hallucinations, Panic, Paranoia, Suicidal, Other - Risk Factors Known Risk Factors: Yes: Smoking, Other (CAD (+ stress test in 03/2018- apical ischemia, noncompliant with scheduling cath)) Vital Signs: Vital Signs Temperature 98.5 F 12/05/18 06:08 Pulse Rate 90 12/05/18 06:08 Respiratory Rate 18 12/05/18 06:08 Blood Pressure 114/66 12/05/18 06:08 O2 Sat by Pulse Oximetry (%) 98 12/05/18 05:00 Constitutional: Yes: No Distress, Calm Eyes: Yes: Conjunctiva Clear, EOM Intact HENT: Yes: Normocephalic Neck: Yes: Trachea Midline Respiratory: Yes: CTA Bilaterally (no wheezing or rales) Gastrointestinal: Yes: Soft (No rebound or guarding tenderness) Cardiovascular: Yes: Regular Rate and Rhythm JVD: No Carotid Bruit: No PMI: Non-Displaced Heart Sounds: Yes: S1, S2 (RRR, no M/R/G) Edema: No Neurological: Yes: Alert, Oriented - Other Data Labs, Other Data: CBC, BMP 12/05/18 07:00 12/05/18 07:00 INR, PTT INR 1.05 (0.83-1.09) 12/04/18 20:08 Troponin, BNP 12/04/18 12/05/18 20:00 07:00 Troponin I < 0.02 < 0.02 Troponin, BNP 12/04/18 12/05/18 20:00 07:00 Troponin I < 0.[address] 127bpm, QTc 572ms. Diffuse ST depressions. Echo: Pending Imaging - Results Chest X-ray: Report Reviewed, Image Reviewed EKG: Image Reviewed Problem List - Problems (1) Hypokalemia Code(s): E87.6 - HYPOKALEMIA (2) Nausea & vomiting Code(s): R11.2 - NAUSEA WITH VOMITING, UNSPECIFIED (3) Diarrhea Code(s): R19.7 - DIARRHEA, UNSPECIFIED Qualifiers: Diarrhea type: unspecified type Qualified Code(s): R19.7 - Diarrhea, unspecified (4) CAD (coronary artery disease) Code(s): I25.10 - ATHSCL HEART DISEASE OF [place] CORONARY ARTERY W/O ANG PCTRS Qualifiers: Coronary Disease-Associated Artery/Lesion type: [place] artery Associated angina: angina presence unspecified (5) Aortic regurgitation Code(s): I35.1 - NONRHEUMATIC AORTIC (VALVE) INSUFFICIENCY Qualifiers: Cardiac valve disease etiology: nonrheumatic Qualified Code(s): I35.1 - Nonrheumatic aortic (valve) insufficiency (6) Prolonged QT interval Code(s): R94.31 - ABNORMAL ELECTROCARDIOGRAM [ECG] [EKG] (7) Abnormal ECG Code(s): R94.31 - ABNORMAL ELECTROCARDIOGRAM [ECG] [EKG] Assessment/Plan IMP: 1. Hypokalemia secondary to vomiting and diarrhea 2. Prolonged QTC secondary to marked hypoK+ 3. Abnormal ECG: likely due to hypoK+ and underling CAD 4. Chronic moderate aortic regurgitation 5. Rheumatoid arthritis. REC: 1. Telemetry monitoring 2. Replete K+, serial BMP 3. D/C HCTZ 4. Keep Mg 2+ around 2.0 5. Repeat Echo 6. Further w/u N/V and diarrhea as per PMD, hydrate. May be an abx side effect. 7. When GI and electrolyte issues resolved, will need to address cath with her as she has been nonadherent with scheduling after an abnormal stress test in March. Will follow
[2018-12-05] MEDS ORDERED: HYDROCHLOROTHIAZIDE 12.5 MG CAPSULE (FP) PO SCH (10:00)
[2018-12-05] MEDS: ASPIRIN 81 MG CHEWABLE TABLETS PO SCH (10:19)
[2018-12-05] MEDS: metoPROLOL SUCCINATE 25 MG TAB.SR.24H (FP) PO SCH ×2 (10:20→21:56)
[2018-12-05] MEDS: PANTOPRAZOLE 40 MG TABLET (FP) PO SCH (10:20)
[2018-12-05] MEDS: FOLIC ACID 1 MG TABLET (FP) PO SCH (10:20)
[2018-12-05] MEDS: KCL 10 MEQ IVPB 10 MEQ/100 ML INFUS.BAG IVPB SCH ×2 (10:45→13:10)
--- NOTE | 2018-12-05 13:01 | EKG ---
Test Reason : Blood Pressure : / mmHG Vent. Rate : 127 BPM Atrial Rate : 127 BPM P-R Int : 000 ms QRS Dur : 070 ms QT Int : 394 ms P-R-T Axes : -08 -22 075 degrees QTc Int : 572 ms SINUS TACHYCARDIA SEPTAL INFARCT (CITED ON OR BEFORE 31-JUL-2018) MARKED ST ABNORMALITY, POSSIBLE INFERIOR SUBENDOCARDIAL INJURY PROLONGED QT ABNORMAL ECG Confirmed by ABIEL GARCIA MD ([id number]) on 12/05/2018 1:01:35 PM Referred By: Confirmed By:ABIEL GARCIA MD
[2018-12-05] MEDS: HEPARIN NA (PORCINE) 5,000 UNITS/ML 1ML VIAL SQ SCH ×2 (13:10→21:55)
[2018-12-05] MEDS ORDERED: KCL 10 MEQ IVPB 10 MEQ/100 ML INFUS.BAG IVPB SCH (14:30)
--- NOTE | 2018-12-05 17:43 | PN ---
Progress Note, Physician - Current Medication List Current Medications: Active Medications Aspirin (Asa -) 81 mg PO DAILY [facility] Last Admin: 12/05/18 10:19 Dose: 81 mg Atorvastatin Calcium (Lipitor -) 10 mg PO HS [facility] Folic Acid (Folic Acid -) 1 mg PO DAILY [facility] Last Admin: 12/05/18 10:20 Dose: 1 mg Heparin Sodium (Porcine) (Heparin -) 5,000 unit SQ BID [facility] Last Admin: 12/05/18 13:10 Dose: Not Given Dextrose/Sodium Chloride (D5-1/2ns -) 1,000 mls @ 75 mls/hr IV ASDIR [facility] Last Admin: 12/05/18 04:41 Dose: 75 mls/hr Ketorolac Tromethamine (Toradol Injection -) 30 mg IVPUSH Q8H PRN PRN Reason: PAIN LEVEL 6-10 Stop: 12/10/18 03:40 Last Admin: 12/05/18 04:42 Dose: 30 mg Metoprolol Succinate (Toprol Xl -) 25 mg PO BID [facility] Last Admin: 12/05/18 10:20 Dose: 25 mg Non-Formulary Medication (Methotrexate Sodium [Trexall]) 80 mg PO WEEKLY [facility] Ondansetron HCl (Zofran Injection) 4 mg IVPUSH Q8H PRN PRN Reason: NAUSEA Pantoprazole Sodium (Protonix -) 40 mg PO DAILY [facility] Last Admin: 12/05/18 10:20 Dose: 40 mg - Objective Vital Signs: Vital Signs Temperature 98 F 12/05/18 14:00 Pulse Rate 88 12/05/18 14:00 Respiratory Rate 20 12/05/18 14:00 Blood Pressure 124/82 12/05/18 14:00 O2 Sat by Pulse Oximetry (%) 98 12/05/18 09:00 Labs: CBC, BMP 12/05/18 07:00 12/05/18 07:00 INR, PTT INR 1.05 (0.83-1.09) 12/04/18 20:08
--- NOTE | 2018-12-05 17:44 | HP ---
Admitting History and Physical - Admission History of Present Illness: Pt is a 48 y/o female with PMH significant for HTN, HLD, Anemia, RA, EtOH abuse and GERD who presented to the emergency department with 2 days of nausea with emesis (non bloody non bilious). The patient states she has been taking Augmentin for a persistent cough which she attributes to making her nauseous. The patent also reports 1 episode of diarrhea (non bloody) yesterday. The patient denies any recent lip swelling, hives or rash. The patient states her last alcoholic drink was yesterday when she had pineapple vodka. - Past Medical History Cardiovascular: Yes: CAD, HTN, Hyperlipdemia, Murmur (Aortic regurg- moderate) Gastrointestinal: Yes: GERD ...: No Heme/Onc: Yes: Anemia Musculoskeletal: Yes: Osteoarthritis Rheumatology: Yes: Rheumatoid Arthritis - Past Surgical History Past Surgical History: Yes: Cholecystectomy (laparoscopic), - Smoking History Smoking history: Current every day smoker Have you smoked in the past 12 months: Yes Aproximately how many cigarettes per day: 10 - Alcohol/Substance Use Hx Alcohol Use: Yes History of Substance Use: reports: None - Social History ADL: Independent Occupation: Unemployed History of Recent Travel: No Home Medications - Allergies Allergies/Adverse Reactions: Allergies Allergy/AdvReac Type Severity Reaction Status Date / Time Latex, Natural Rubber Allergy Swelling Verified 12/04/18 18:34 No Known Drug Allergies Allergy Verified 12/04/18 18:34 - Home Medications Home Medications: Ambulatory Orders Metoprolol Succinate [Toprol Xl] 25 mg PO BID 02/02/18 Aspirin [ASA -] 81 mg PO DAILY 06/21/18 Hydrochlorothiazide [Hctz -] 12.5 mg PO DAILY 06/21/18 Atorvastatin Ca [Lipitor] 10 mg PO HS tablet 08/03/18 Folic Acid - 1 mg PO DAILY tablet 08/03/18 Methotrexate Sodium [Trexall] 80 mg PO WEEKLY 12/05/18 Family Disease History - Family Disease History Family History: Unremarkable Family Disease History: Diabetes: Mother (Alive: DM II), Other: Father (Alive: healthy), Mother, Brother (6, healthy), Sister (1, healthy), Son (2, healthy), Daughter (1, healthy) Review of Systems - Review of Systems Eyes: reports: No Symptoms HENT: reports: No Symptoms Neck: reports: No Symptoms Cardiovascular: reports: No Symptoms Respiratory: reports: No Symptoms Genitourinary: reports: No Symptoms Physical Examination Vital Signs: Vital Signs Temperature 98 F 12/05/18 14:00 Pulse Rate 88 12/05/18 14:00 Respiratory Rate 20 12/05/18 14:00 Blood Pressure 124/82 12/05/18 14:00 O2 Sat by Pulse Oximetry (%) 98 12/05/18 09:00 Constitutional: Yes: Well Nourished HENT: Yes: WNL Neck: Yes: WNL, Supple Cardiovascular: Yes: WNL, Regular Rate and Rhythm Respiratory: Yes: WNL, Regular, CTA Bilaterally Gastrointestinal: Yes: WNL, Normal Bowel Sounds, Soft Musculoskeletal: Yes: WNL Extremities: Yes: WNL Edema: No Neurological: Yes: WNL, Alert, Oriented ...Motor Strength: WNL Labs: CBC, BMP 12/05/18 07:00 12/05/18 07:00 Problem List - Problems (1) Nausea & vomiting Assessment/Plan: Replace K+ Cont IVF Due to antibiotic(augmentin) Code(s): R11.2 - NAUSEA WITH VOMITING, UNSPECIFIED (2) Abnormal ECG Assessment/Plan: Admitted to tele Serial cpk/troponin Cardio consult Code(s): R94.31 - ABNORMAL ELECTROCARDIOGRAM [ECG] [EKG] (3) Anemia Assessment/Plan: Cont folic acid Due to chronic dz Code(s): D64.9 - ANEMIA, UNSPECIFIED (4) CAD (coronary artery disease) Code(s): I25.10 - ATHSCL HEART DISEASE OF [place] CORONARY ARTERY W/O ANG PCTRS Qualifiers: Coronary Disease-Associated Artery/Lesion type: [place] artery Associated angina: angina presence unspecified (5) Hypokalemia Assessment/Plan: Replace K+ Code(s): E87.6 - HYPOKALEMIA (6) HTN (hypertension) Assessment/Plan: BP stable Cont antihypertensives Code(s): I10 - ESSENTIAL (PRIMARY) HYPERTENSION (7) HLD (hyperlipidemia) Assessment/Plan: Cont lipitor Code(s): E78.5 - HYPERLIPIDEMIA, UNSPECIFIED (8) Rheumatoid arthritis Assessment/Plan: Cont methotrexate Code(s): M06.9 - RHEUMATOID ARTHRITIS, UNSPECIFIED
[2018-12-05] MEDS: ATORVASTATIN CA 10 MG TABLET (FP) PO SCH (21:56)
[2018-12-05] MEDS: NICOTINE 21 MG/24 HOURS TOPICAL PATCH TD SCH (21:56)
[2018-12-06] MEDS ORDERED: diphenhydrAMINE HCL 25 MG CAPSULE (FP) PO ONE (02:30)
[2018-12-06 07:46] LABS: ANION GAP 6 MMOL/L (8-16); BLOOD UREA NITROGEN 7 mg/dL (7-18); CALCIUM 7.9 mg/dL (8.5-10.1); CHLORIDE 102 mmol/L (98-107); CO2 31 mmol/L (21-32); CREATININE 0.5 mg/dL (0.55-1.3); GLUCOSE,RANDOM 94 mg/dL (74-106); MAGNESIUM 1.4 mg/dL (1.8-2.4); SODIUM 139 mmol/L (136-145)
[2018-12-06] MEDS: ASPIRIN 81 MG CHEWABLE TABLETS PO SCH (09:16)
[2018-12-06] MEDS: PANTOPRAZOLE 40 MG TABLET (FP) PO SCH (09:16)
[2018-12-06] MEDS: FOLIC ACID 1 MG TABLET (FP) PO SCH (09:16)
[2018-12-06] MEDS: NICOTINE 21 MG/24 HOURS TOPICAL PATCH TD SCH (09:17)
[2018-12-06] MEDS: metoPROLOL SUCCINATE 25 MG TAB.SR.24H (FP) PO SCH ×2 (09:17→21:04)
[2018-12-06] MEDS: HEPARIN NA (PORCINE) 5,000 UNITS/ML 1ML VIAL SQ SCH ×2 (09:21→21:03)
--- NOTE | 2018-12-06 10:12 | PN ---
Progress Note, Physician Chief Complaint: K+ up to 3 TELE: Sinus tach - Current Medication List Current Medications: Active Medications Aspirin (Asa -) 81 mg PO DAILY [facility] Last Admin: 12/06/18 09:16 Dose: 81 mg Atorvastatin Calcium (Lipitor -) 10 mg PO HS [facility] Last Admin: 12/05/18 21:56 Dose: 10 mg Folic Acid (Folic Acid -) 1 mg PO DAILY [facility] Last Admin: 12/06/18 09:16 Dose: 1 mg Heparin Sodium (Porcine) (Heparin -) 5,000 unit SQ BID [facility] Last Admin: 12/06/18 09:21 Dose: Not Given Potassium Chloride (Potassium Chloride 10 Meq Premix Ivpb -) 10 meq in 100 mls @ 100 mls/hr IVPB Q60M [facility] Stop: 12/06/18 12:14 Ketorolac Tromethamine (Toradol Injection -) 30 mg IVPUSH Q8H PRN PRN Reason: PAIN LEVEL 6-10 Stop: 12/10/18 03:40 Last Admin: 12/05/18 22:00 Dose: 30 mg Magnesium Oxide (Mag-Ox -) 400 mg PO BID [facility] Metoprolol Succinate (Toprol Xl -) 25 mg PO BID [facility] Last Admin: 12/06/18 09:17 Dose: 25 mg Nicotine (Nicoderm Patch -) 21 mg TD DAILY [facility] Last Admin: 12/06/18 09:17 Dose: 21 mg Non-Formulary Medication (Methotrexate Sodium [Trexall]) 80 mg PO WEEKLY [facility] Ondansetron HCl (Zofran Injection) 4 mg IVPUSH Q8H PRN PRN Reason: NAUSEA Pantoprazole Sodium (Protonix -) 40 mg PO DAILY [facility] Last Admin: 12/06/18 09:16 Dose: 40 mg Potassium Chloride (K-Dur -) 20 meq PO DAILY [facility] - Objective Vital Signs: Vital Signs Temperature 98.5 F 12/06/18 06:00 Pulse Rate 80 12/06/18 06:00 Respiratory Rate 18 12/06/18 06:00 Blood Pressure 111/73 12/06/18 06:00 O2 Sat by Pulse Oximetry (%) 98 12/05/18 21:00 Constitutional: Yes: No Distress Cardiovascular: Yes: Regular Rate and Rhythm Respiratory: Yes: CTA Bilaterally Gastrointestinal: Yes: Soft Edema: No Neurological: Yes: Alert, Oriented ...Motor Strength: WNL Labs: CBC, BMP 12/05/18 07:00 12/06/18 05:15 INR, PTT INR 1.05 (0.83-1.09) 12/04/18 20:08 - ....Imaging EKG: Image Reviewed Problem List - Problems (1) Hypokalemia Code(s): E87.6 - HYPOKALEMIA (2) Nausea & vomiting Code(s): R11.2 - NAUSEA WITH VOMITING, UNSPECIFIED (3) Diarrhea Code(s): R19.7 - DIARRHEA, UNSPECIFIED Qualifiers: Diarrhea type: unspecified type Qualified Code(s): R19.7 - Diarrhea, unspecified (4) CAD (coronary artery disease) Code(s): I25.10 - ATHSCL HEART DISEASE OF [place] CORONARY ARTERY W/O ANG PCTRS Qualifiers: Coronary Disease-Associated Artery/Lesion type: [place] artery Associated angina: angina presence unspecified (5) Aortic regurgitation Code(s): I35.1 - NONRHEUMATIC AORTIC (VALVE) INSUFFICIENCY Qualifiers: Cardiac valve disease etiology: nonrheumatic Qualified Code(s): I35.1 - Nonrheumatic aortic (valve) insufficiency (6) Prolonged QT interval Code(s): R94.31 - ABNORMAL ELECTROCARDIOGRAM [ECG] [EKG] (7) Abnormal ECG Code(s): R94.31 - ABNORMAL ELECTROCARDIOGRAM [ECG] [EKG] Assessment/Plan IMP: 1. Hypokalemia secondary to vomiting and diarrhea 2. Prolonged QTC secondary to marked hypoK+ 3. Abnormal ECG: likely due to hypoK+ and [place] CAD 4. Chronic moderate aortic regurgitation 5. Rheumatoid arthritis. REC: 1. Telemetry monitoring 2. Replete K+, serial BMP 3. D/C HCTZ 4. Keep Mg 2+ around 2.0; will replete 5. Repeat Echo 6. Further w/u N/V and diarrhea as per PMD, hydrate. May be an abx side effect. 7. When GI and electrolyte issues resolved, will need to address cath with her as she has been nonadherent with scheduling after an abnormal stress test in March. 8. Heme consult for thrombocytopenia
[2018-12-06] MEDS: MAGNESIUM OXIDE 400 MG TABLET (FP) PO SCH ×2 (10:35→21:04)
[2018-12-06] MEDS: KCL 10 MEQ IVPB 10 MEQ/100 ML INFUS.BAG IVPB SCH ×5 (10:35→15:45)
[2018-12-06] MEDS: POTASSIUM CHLORIDE TABS 20 MEQ TABLET.ER (FP) PO SCH (10:35)
[2018-12-06 15:56] LABS: ANION GAP 7 MMOL/L (8-16); BLOOD UREA NITROGEN 6 mg/dL (7-18); CALCIUM 8.2 mg/dL (8.5-10.1); CHLORIDE 106 mmol/L (98-107); CO2 27 mmol/L (21-32); CREATININE 0.5 mg/dL (0.55-1.3); GLUCOSE,RANDOM 101 mg/dL (74-106); POTASSIUM 4.4 mmol/L (3.5-5.1); SODIUM 140 mmol/L (136-145)
[2018-12-06] MEDS: ATORVASTATIN CA 10 MG TABLET (FP) PO SCH (21:04)
--- NOTE | 2018-12-06 22:08 | PN ---
Progress Note, Physician History of Present Illness: Pt c/o's vaginal itch/discharge - Current Medication List Current Medications: Active Medications Aspirin (Asa -) 81 mg PO DAILY [facility] Last Admin: 12/06/18 09:16 Dose: 81 mg Atorvastatin Calcium (Lipitor -) 10 mg PO HS [facility] Last Admin: 12/06/18 21:04 Dose: 10 mg Folic Acid (Folic Acid -) 1 mg PO DAILY [facility] Last Admin: 12/06/18 09:16 Dose: 1 mg Heparin Sodium (Porcine) (Heparin -) 5,000 unit SQ BID [facility] Last Admin: 12/06/18 21:03 Dose: Not Given Ketorolac Tromethamine (Toradol Injection -) 30 mg IVPUSH Q8H PRN PRN Reason: PAIN LEVEL 6-10 Stop: 12/10/18 03:40 Last Admin: 12/05/18 22:00 Dose: 30 mg Magnesium Oxide (Mag-Ox -) 400 mg PO BID [facility] Last Admin: 12/06/18 21:04 Dose: 400 mg Metoprolol Succinate (Toprol Xl -) 25 mg PO BID [facility] Last Admin: 12/06/18 21:04 Dose: 25 mg Nicotine (Nicoderm Patch -) 21 mg TD DAILY [facility] Last Admin: 12/06/18 09:17 Dose: 21 mg Non-Formulary Medication (Methotrexate Sodium [Trexall]) 80 mg PO WEEKLY [facility] Ondansetron HCl (Zofran Injection) 4 mg IVPUSH Q8H PRN PRN Reason: NAUSEA Pantoprazole Sodium (Protonix -) 40 mg PO DAILY [facility] Last Admin: 12/06/18 09:16 Dose: 40 mg Potassium Chloride (K-Dur -) 20 meq PO DAILY [facility] Last Admin: 12/06/18 10:35 Dose: 20 meq - Objective Vital Signs: Vital Signs Temperature 98.3 F 12/06/18 14:00 Pulse Rate 86 12/06/18 14:00 Respiratory Rate 22 H 12/06/18 10:00 Blood Pressure 124/90 12/06/18 14:00 O2 Sat by Pulse Oximetry (%) 98 12/06/18 09:00 Neck: Yes: WNL, Supple Cardiovascular: Yes: WNL, Regular Rate and Rhythm Respiratory: Yes: WNL, Regular, CTA Bilaterally Gastrointestinal: Yes: WNL, Normal Bowel Sounds, Soft Labs: CBC, BMP 12/05/18 07:00 12/06/18 15:17 INR, PTT INR 1.05 (0.83-1.09) 12/04/18 20:08 Problem List - Problems (1) Abnormal ECG Assessment/Plan: Pt had (+) stress test in 2018 Pt for cardiac cath as per cardio Code(s): R94.31 - ABNORMAL ELECTROCARDIOGRAM [ECG] [EKG] (2) Thrombocytopenia Assessment/Plan: Heme eval Could be due to etoh use Will dc heparin wc is being used for dvt prohylaxsis Code(s): D69.6 - THROMBOCYTOPENIA, UNSPECIFIED (3) Nausea & vomiting Assessment/Plan: Replace K+ Now resolved Could be secondary to antibiotic(Augmentin) Code(s): R11.2 - NAUSEA WITH VOMITING, UNSPECIFIED (4) CAD (coronary artery disease) Code(s): I25.10 - ATHSCL HEART DISEASE OF [place] CORONARY ARTERY W/O ANG PCTRS Qualifiers: Coronary Disease-Associated Artery/Lesion type: [place] artery Associated angina: angina presence unspecified (5) HLD (hyperlipidemia) Assessment/Plan: Cont lipitor Code(s): E78.5 - HYPERLIPIDEMIA, UNSPECIFIED (6) HTN (hypertension) Assessment/Plan: Cont asa/toprol BP stable Code(s): I10 - ESSENTIAL (PRIMARY) HYPERTENSION (7) Rheumatoid arthritis Assessment/Plan: Cont methotrexate Code(s): M06.9 - RHEUMATOID ARTHRITIS, UNSPECIFIED (8) Anemia Assessment/Plan: Cont folic acid Code(s): D64.9 - ANEMIA, UNSPECIFIED
[2018-12-06] MEDS: KETOROLAC TROMETHAMINE 30 MG/1 ML VIAL IVPUSH PRN (23:33)
--- NOTE | 2018-12-07 08:42 | PN ---
Progress Note, Physician Chief Complaint: TELE: NSR, artifact K+ normalized - Current Medication List Current Medications: Active Medications Aspirin (Asa -) 81 mg PO DAILY [facility] Last Admin: 12/06/18 09:16 Dose: 81 mg Atorvastatin Calcium (Lipitor -) 10 mg PO HS [facility] Last Admin: 12/06/18 21:04 Dose: 10 mg Folic Acid (Folic Acid -) 1 mg PO DAILY [facility] Last Admin: 12/06/18 09:16 Dose: 1 mg Ketorolac Tromethamine (Toradol Injection -) 30 mg IVPUSH Q8H PRN PRN Reason: PAIN LEVEL 6-10 Stop: 12/10/18 03:40 Last Admin: 12/06/18 23:33 Dose: 30 mg Magnesium Oxide (Mag-Ox -) 400 mg PO BID [facility] Last Admin: 12/06/18 21:04 Dose: 400 mg Metoprolol Succinate (Toprol Xl -) 25 mg PO BID [facility] Last Admin: 12/06/18 21:04 Dose: 25 mg Nicotine (Nicoderm Patch -) 21 mg TD DAILY [facility] Last Admin: 12/06/18 09:17 Dose: 21 mg Non-Formulary Medication (Methotrexate Sodium [Trexall]) 80 mg PO WEEKLY [facility] Ondansetron HCl (Zofran Injection) 4 mg IVPUSH Q8H PRN PRN Reason: NAUSEA Pantoprazole Sodium (Protonix -) 40 mg PO DAILY [facility] Last Admin: 12/06/18 09:16 Dose: 40 mg Potassium Chloride (K-Dur -) 20 meq PO DAILY [facility] Last Admin: 12/06/18 10:35 Dose: 20 meq - Objective Vital Signs: Vital Signs Temperature 98 F 12/07/18 05:00 Pulse Rate 83 12/07/18 05:00 Respiratory Rate 18 12/07/18 05:00 Blood Pressure 130/87 12/07/18 05:00 O2 Sat by Pulse Oximetry (%) 100 12/06/18 21:00 Constitutional: Yes: No Distress Cardiovascular: Yes: Regular Rate and Rhythm Respiratory: Yes: CTA Bilaterally Gastrointestinal: Yes: Soft Edema: No Neurological: Yes: Alert ...Motor Strength: WNL Labs: CBC, BMP 12/05/18 07:00 12/06/18 15:17 INR, PTT INR 1.05 (0.83-1.09) 12/04/18 20:08 Laboratory Tests 12/05/18 12/05/18 12/05/18 07:00 07:00 14:30 WBC 5.5 Hgb 12.6 Plt Count 86 L D Sodium Potassium BUN Creatinine Calcium Magnesium Troponin I < 0.02 < 0.02 12/06/18 12/06/18 05:15 15:17 WBC Hgb Plt Count Sodium 139 140 Potassium 3.0 L 4.4 BUN 6 L Creatinine 0.5 L 0.5 L Calcium 8.2 L Magnesium 1.4 L Troponin I < 0.02 - ....Imaging EKG: Image Reviewed Problem List - Problems (1) Hypokalemia Code(s): E87.6 - HYPOKALEMIA (2) Nausea & vomiting Code(s): R11.2 - NAUSEA WITH VOMITING, UNSPECIFIED (3) Diarrhea Code(s): R19.7 - DIARRHEA, UNSPECIFIED Qualifiers: Diarrhea type: unspecified type Qualified Code(s): R19.7 - Diarrhea, unspecified (4) CAD (coronary artery disease) Code(s): I25.10 - ATHSCL HEART DISEASE OF [place] CORONARY ARTERY W/O ANG PCTRS Qualifiers: Coronary Disease-Associated Artery/Lesion type: [place] artery Associated angina: angina presence unspecified (5) Aortic regurgitation Code(s): I35.1 - NONRHEUMATIC AORTIC (VALVE) INSUFFICIENCY Qualifiers: Cardiac valve disease etiology: nonrheumatic Qualified Code(s): I35.1 - Nonrheumatic aortic (valve) insufficiency (6) Prolonged QT interval Code(s): R94.31 - ABNORMAL ELECTROCARDIOGRAM [ECG] [EKG] (7) Abnormal ECG Code(s): R94.31 - ABNORMAL ELECTROCARDIOGRAM [ECG] [EKG] Assessment/Plan IMP: 1. Hypokalemia secondary to vomiting and diarrhea 2. Prolonged QTC secondary to marked hypoK+ 3. Abnormal ECG: likely due to hypoK+ and [place] CAD 4. Chronic moderate aortic regurgitation 5. Rheumatoid arthritis. REC: 1. Telemetry monitoring; repeat ECG 2. Replete K+, serial BMP 3. D/C HCTZ 4. Repeat lytes today 5. Repeat Echo 6. Further w/u N/V and diarrhea as per PMD, hydrate. May be an abx side effect. 7. When GI and electrolyte issues resolved, will need to address cath with her as she has been nonadherent with scheduling after an abnormal stress test in March. 8. Heme consult for thrombocytopenia
[2018-12-07] MEDS: MAGNESIUM OXIDE 400 MG TABLET (FP) PO SCH ×2 (09:03→22:32)
[2018-12-07] MEDS: ASPIRIN 81 MG CHEWABLE TABLETS PO SCH (09:03)
[2018-12-07] MEDS: NICOTINE 21 MG/24 HOURS TOPICAL PATCH TD SCH (09:03)
[2018-12-07] MEDS: POTASSIUM CHLORIDE TABS 20 MEQ TABLET.ER (FP) PO SCH (09:03)
[2018-12-07] MEDS: FOLIC ACID 1 MG TABLET (FP) PO SCH (09:03)
[2018-12-07] MEDS: PANTOPRAZOLE 40 MG TABLET (FP) PO SCH (09:03)
[2018-12-07] MEDS: metoPROLOL SUCCINATE 25 MG TAB.SR.24H (FP) PO SCH ×2 (09:05→22:32)
--- NOTE | 2018-12-07 10:27 | EKG ---
Test Reason : Blood Pressure : / mmHG Vent. Rate : 071 BPM Atrial Rate : 071 BPM P-R Int : 168 ms QRS Dur : 074 ms QT Int : 410 ms P-R-T Axes : 045 -06 022 degrees QTc Int : 445 ms NORMAL SINUS RHYTHM WITH SINUS ARRHYTHMIA POSSIBLE LEFT ATRIAL ENLARGEMENT SEPTAL INFARCT (CITED ON OR BEFORE 31-JUL-2018) ABNORMAL ECG WHEN COMPARED WITH ECG OF 04-DEC-2018 19:38, VENT. RATE HAS DECREASED BY [address] NO LONGER DEPRESSED IN INFERIOR LEADS ST NO LONGER DEPRESSED IN ANTEROLATERAL LEADS T WAVE INVERSION NO LONGER EVIDENT IN LATERAL LEADS Confirmed by ZEFERINO CALVILLO, SOULEYMANE ([id number]) on 12/07/2018 10:26:50 AM Referred By: Angel DURHAM Confirmed By:SOULEYMANE MCGARRY MD
--- NOTE | 2018-12-07 13:11 | CONSULT ---
Consultation: REQUESTING PROVIDER: Dr. Bourne CONSULT REQUEST: We have been asked to medically evaluate this patient for thrombocytopenia HISTORY OF PRESENT ILLNESS: This is a 48 year old female with a history of alcohol abuse, rheumatoid arthritis, GERD, CAD, prolonged QT, who presented after mulitple episodes of N/V /D after taking augmentin for bronchitis. Patient found to be in sinus tach with prolonged QT and ST depressions in the setting of hypokalemia. We were called to evaluate for thrombocytopenia. REVIEW OF SYSTEMS: CONSTITUTIONAL: Absent: fever, chills, diaphoresis, generalized weakness, malaise, loss of appetite, weight change HEENT: Absent: rhinorrhea, nasal congestion, throat pain, throat swelling, difficulty swallowing, mouth swelling, ear pain, eye pain, visual changes CARDIOVASCULAR: Absent: chest pain, syncope, palpitations, irregular heart rate, lightheadedness , peripheral edema RESPIRATORY: Positive: cough Absent: shortness of breath, dyspnea with exertion, orthopnea, wheezing, stridor , hemoptysis GASTROINTESTINAL: Absent: abdominal pain, abdominal distension, nausea, vomiting, diarrhea, constipation, melena, hematochezia GENITOURINARY: Absent: dysuria, frequency, urgency, hesitancy, hematuria, flank pain, genital pain MUSCULOSKELETAL: Absent: myalgia, arthralgia, joint swelling, back pain, neck pain SKIN: Absent: rash, itching, pallor HEMATOLOGIC/IMMUNOLOGIC: Absent: easy bleeding, easy bruising, lymphadenopathy, frequent infections ENDOCRINE: Absent: unexplained weight gain, unexplained weight loss, heat intolerance, cold intolerance NEUROLOGIC: Absent: headache, focal weakness or paresthesias, dizziness, unsteady gait, seizure, mental status changes, bladder or bowel incontinence PSYCHIATRIC: Absent: anxiety, depression, suicidal or homicidal ideation, hallucinations. PHYSICAL EXAMINATION Vital Signs - 24 hr 12/06/18 12/06/18 12/07/18 14:00 21:00 01:57 Temperature 98.3 F 98.5 F 98 F Pulse Rate 86 81 80 Respiratory 19 18 Rate Blood Pressure 124/90 129/88 134/84 O2 Sat by Pulse 100 Oximetry (%) 12/07/18 12/07/18 05:00 09:00 Temperature 98 F 98.5 F Pulse Rate 83 78 Respiratory 18 18 Rate Blood Pressure 130/87 142/98 O2 Sat by Pulse 95 Oximetry (%) GENERAL: Awake, alert, and fully oriented, in no acute distress. HEAD: Normal with no signs of trauma. EYES: Pupils equal, round and reactive to light, extraocular movements intact, sclera anicteric, conjunctiva clear. No lid lag. EARS, NOSE, THROAT: Ears normal, nares patent, oropharynx clear without exudates. Moist mucous membranes. NECK: Normal range of motion, supple without lymphadenopathy, JVD, or masses. LUNGS: Breath sounds equal, clear to auscultation bilaterally. No wheezes, and no crackles. No accessory muscle use. HEART: Regular rate and rhythm, normal S1 and S2; aortic murmur extending to right clavicle, rub or gallop. BREAST/Axilla: no masses/lumps or nipple discharge ABDOMEN: distended, soft, normoactive bowel sounds, mild tenderness with palaption of RLQ MUSCULOSKELETAL: left knee swollen; right knee with scar s/p knee replacement UPPER EXTREMITIES: 2+ pulses, warm, well-perfused. No cyanosis. No clubbing. Cap refill <2 seconds. No peripheral edema. LOWER EXTREMITIES: 2+ pulses, warm, well-perfused. No calf tenderness. No peripheral edema. NEUROLOGICAL: Cranial nerves II-XII intact. Normal speech. PSYCHIATRIC: Cooperative. Good eye contact. Appropriate mood and affect. SKIN: Warm, dry, normal turgor, no rashes or lesions noted. Laboratory Results - last 24 hr 12/06/18 15:17 Sodium 140 Potassium 4.4 Chloride 106 Carbon Dioxide 27 Anion Gap 7 L BUN 6 L Creatinine 0.5 L Creat Clearance w eGFR > 60 Random Glucose 101 Calcium 8.2 L Active Medications Generic Name Dose Route Start Last Admin Trade Name Freq PRN Reason Stop Dose Admin Aspirin 81 mg 12/05/18 10:00 12/07/18 09:03 Asa - PO 81 mg DAILY [facility] Administration Atorvastatin Calcium 10 mg 12/05/18 22:00 12/06/18 21:04 Lipitor - PO 10 mg HS [facility] Administration Folic Acid 1 mg 12/05/18 10:00 12/07/18 09:03 Folic Acid - PO 1 mg DAILY [facility] Administration Magnesium Oxide 400 mg 12/06/18 10:15 12/07/18 09:03 Mag-Ox - PO 400 mg BID [facility] Administration Metoprolol Succinate 25 mg 12/05/18 10:00 12/07/18 09:05 Toprol Xl - PO 25 mg BID [facility] Administration Nicotine 21 mg 12/05/18 18:30 12/07/18 09:03 Nicoderm Patch - TD 21 mg DAILY [facility] Administration Non-Formulary Medication 80 mg 12/05/18 03:45 Methotrexate Sodium [Trexall] PO WEEKLY [facility] Ondansetron HCl 4 mg 12/05/18 03:37 Zofran Injection IVPUSH Q8H PRN NAUSEA Pantoprazole Sodium 40 mg 12/05/18 10:00 12/07/18 09:03 Protonix - PO 40 mg DAILY [facility] Administration Potassium Chloride 20 meq 12/06/18 10:15 12/07/18 09:03 K-Dur - PO 20 meq DAILY [facility] Administration ASSESSMENT/PLAN: This is a 48 year old female with a history of ETOH abuse, RA, HTN, AR, CAD, who presents after N/V/D from taking augmentiin, found to be severely hypokalemic with prolonged QTc and ST depressions, called to evaluate for thombocytopenia. Thrombocytopenia EToh abuse prolonged qt hypokalemia hx cad; + stress test in 2018 aortic regurg -thrombocytopenia; may be due to direct toxic effect of alcohol; drinks 2-3vodka ; every other day; possible adverse effect from protonix?; -albumin/ globulin ratio< 1; eval protein studies -cbc, immunoglobulin levels, immunofixation, SPEP, flow cytometrey -tsh, b12, folate -abdomen distended; will get sono to eval hepato/splenomegaly Dispo: We will continue to follow the patient. Thank you for this consultative opportunity. Visit type - Emergency Visit Emergency Visit: Yes ED Registration Date: 12/04/18 Care time: The patient presented to the Emergency Department on the above date and was hospitalized for further evaluation of their emergent condition. - New Patient This patient is new to me today: Yes Date on this admission: 12/07/18 - Critical Care Critical Care patient: No
--- NOTE | 2018-12-07 16:33 | PN ---
Teaching Attending Note Name of Resident: Mariely Arriola ATTENDING PHYSICIAN STATEMENT I saw and evaluated the patient. I reviewed the resident's note and discussed the case with the resident. I agree with the resident's findings and plan as documented. SUBJECTIVE: Patient seen and examined Discussed with Dr. Arriola and Steffen . Presented with upper respiratory symptoms with cough, no fever , having taken 2 augmentin with resultant nausea and emesis. Noted to be thrombocytopenic . History of ETOH abuse - initally upwards of one pint per day and now admits to every other day of at least 3 drinks per day. Does not quantitate size of each drink and occasionally it might be beer. History of rheumatoid arthritis on MTX - 15 mg q week , but not compliant with meds. Last Vital Signs Temp Pulse Resp BP Pulse Ox 98.6 F 78 20 127/87 95 12/07/18 14:00 12/07/18 14:00 12/07/18 14:00 12/07/18 14:00 12/07/18 09:00 HEENT: LINDA, EOM Intact Oropharynx: No thrush, No mucositis Neck: Supple Nodes: Without adenopathy Breasts: Without masses Cor: RSR, No murmurs, No gallops Lungs: Clear to P&A Abd: Soft, Normal bowel sounds, No organomegaly Ext:No significant edema Skin: No rashes, Integument intact, s/p right total knee operation CBC, BMP 12/05/18 07:00 12/06/18 15:17 Current Medications Generic Name Dose Route Start Last Admin Trade Name Freq PRN Reason Stop Dose Admin Aspirin 81 mg 12/05/18 10:00 12/07/18 09:03 Asa - PO 81 mg DAILY [facility] Administration Atorvastatin Calcium 10 mg 12/05/18 22:00 12/06/18 21:04 Lipitor - PO 10 mg HS [facility] Administration Folic Acid 1 mg 12/05/18 10:00 12/07/18 09:03 Folic Acid - PO 1 mg DAILY [facility] Administration Magnesium Oxide 400 mg 12/06/18 10:15 12/07/18 09:03 Mag-Ox - PO 400 mg BID [facility] Administration Metoprolol Succinate 25 mg 12/05/18 10:00 12/07/18 09:05 Toprol Xl - PO 25 mg BID [facility] Administration Nicotine 21 mg 12/05/18 18:30 12/07/18 09:03 Nicoderm Patch - TD 21 mg DAILY [facility] Administration Non-Formulary Medication 80 mg 12/05/18 03:45 Methotrexate Sodium [Trexall] PO WEEKLY [facility] Ondansetron HCl 4 mg 12/05/18 03:37 Zofran Injection IVPUSH Q8H PRN NAUSEA Pantoprazole Sodium 40 mg 12/05/18 10:00 12/07/18 09:03 Protonix - PO 40 mg DAILY [facility] Administration Potassium Chloride 20 meq 12/06/18 10:15 12/07/18 09:03 K-Dur - PO 20 meq DAILY [facility] Administration Impression: Thrombocytopenia Possible etiologies - acute toxic effect of alcohol, recent URI, rheumatoid arthritis, hypersplenism Work up as noted to include abdominal sono, SHARON,RF as well as additional screening. If platelets are adequate, can proceed with cath, and can work up as out patient. OBJECTIVE: ASSESSMENT AND PLAN:
[2018-12-07] MEDS ORDERED: METHOTREXATE 2.5 MG TABLET PO SCH (17:30)
[2018-12-07 17:46] LABS: BASO % 0.4 % (0-2.0); EOS % 1.1 % (0-4.5); HEMATOCRIT 35.1 % (32.4-45.2); HEMOGLOBIN 11.9 GM/dL (10.7-15.3); LYMPH % 17.6 % (8-40); MCH 29.7 pg (25.7-33.7); MEAN CELL VOLUME 87.4 fl (80-96); MEAN PLT VOLUME 8.5 fl (7.5-11.1); MONO % 6.3 % (3.8-10.2); NEUT % 74.6 % (42.8-82.8); PLATELET COUNT 102 K/MM3 (134-434); RBC 4.01 M/mm3 (3.60-5.2); WHITE BLOOD COUNT 6.7 K/mm3 (4.0-10.0)
--- NOTE | 2018-12-07 20:32 | PN ---
Progress Note, Physician History of Present Illness: No new complaints - Current Medication List Current Medications: Active Medications Aspirin (Asa -) 81 mg PO DAILY [facility] Last Admin: 12/07/18 09:03 Dose: 81 mg Atorvastatin Calcium (Lipitor -) 10 mg PO HS [facility] Last Admin: 12/06/18 21:04 Dose: 10 mg Folic Acid (Folic Acid -) 1 mg PO DAILY [facility] Last Admin: 12/07/18 09:03 Dose: 1 mg Magnesium Oxide (Mag-Ox -) 400 mg PO BID [facility] Last Admin: 12/07/18 09:03 Dose: 400 mg Methotrexate (Mexate -) 20 mg PO Mo@1000 [facility] Last Admin: 12/07/18 18:21 Dose: Not Given Metoprolol Succinate (Toprol Xl -) 25 mg PO BID [facility] Last Admin: 12/07/18 09:05 Dose: 25 mg Nicotine (Nicoderm Patch -) 21 mg TD DAILY [facility] Last Admin: 12/07/18 09:03 Dose: 21 mg Ondansetron HCl (Zofran Injection) 4 mg IVPUSH Q8H PRN PRN Reason: NAUSEA Pantoprazole Sodium (Protonix -) 40 mg PO DAILY [facility] Last Admin: 12/07/18 09:03 Dose: 40 mg Potassium Chloride (K-Dur -) 20 meq PO DAILY [facility] Last Admin: 12/07/18 09:03 Dose: 20 meq - Objective Vital Signs: Vital Signs Temperature 99.0 F 12/07/18 17:50 Pulse Rate 76 12/07/18 17:50 Respiratory Rate 20 12/07/18 17:50 Blood Pressure 137/94 12/07/18 17:50 O2 Sat by Pulse Oximetry (%) 95 12/07/18 09:00 Constitutional: Yes: Well Nourished Neck: Yes: WNL, Supple Cardiovascular: Yes: WNL, Regular Rate and Rhythm Respiratory: Yes: WNL, Regular, CTA Bilaterally Gastrointestinal: Yes: WNL, Normal Bowel Sounds, Soft Labs: CBC, BMP 12/07/18 17:00 12/06/18 15:17 INR, PTT INR 1.05 (0.83-1.09) 12/04/18 20:08 Problem List - Problems (1) Thrombocytopenia Assessment/Plan: Heme eval Could be due to etoh use vs RA W/U in progress Check serologies Check abdominal US Code(s): D69.6 - THROMBOCYTOPENIA, UNSPECIFIED (2) Abnormal ECG Assessment/Plan: Pt will need cardiac cath once plts stable Code(s): R94.31 - ABNORMAL ELECTROCARDIOGRAM [ECG] [EKG] (3) Nausea & vomiting Assessment/Plan: Resolved Due to antibiotic(augmentin) Code(s): R11.2 - NAUSEA WITH VOMITING, UNSPECIFIED (4) Anemia Assessment/Plan: Cont folic acid Due to chronic dz Code(s): D64.9 - ANEMIA, UNSPECIFIED (5) CAD (coronary artery disease) Code(s): I25.10 - ATHSCL HEART DISEASE OF [place] CORONARY ARTERY W/O ANG PCTRS Qualifiers: Coronary Disease-Associated Artery/Lesion type: [place] artery Associated angina: angina presence unspecified (6) Hypokalemia Assessment/Plan: Resolved Cont Potassium replacement Code(s): E87.6 - HYPOKALEMIA (7) HTN (hypertension) Assessment/Plan: BP stable Cont toprol Code(s): I10 - ESSENTIAL (PRIMARY) HYPERTENSION (8) HLD (hyperlipidemia) Assessment/Plan: Cont lipitor Code(s): E78.5 - HYPERLIPIDEMIA, UNSPECIFIED (9) Rheumatoid arthritis Assessment/Plan: Cont methotrexate Code(s): M06.9 - RHEUMATOID ARTHRITIS, UNSPECIFIED
[2018-12-07] MEDS ORDERED: MORPHINE SULFATE 2 MG/ML VIAL IVPUSH ONE (22:30)
[2018-12-07] MEDS: ATORVASTATIN CA 10 MG TABLET (FP) PO SCH (22:32)
[2018-12-08 06:25] LABS: BASO % 0.3 % (0-2.0); EOS % 1.5 % (0-4.5); HEMOGLOBIN 11.3 GM/dL (10.7-15.3); LYMPH % 22.7 % (8-40); MCH 28.9 pg (25.7-33.7); MCHC 33.3 g/dl (32.0-36.0); MEAN CELL VOLUME 86.8 fl (80-96); MEAN PLT VOLUME 7.7 fl (7.5-11.1); MONO % 5.4 % (3.8-10.2); NEUT % 70.1 % (42.8-82.8); PLATELET COUNT 109 K/MM3 (134-434); RBC 3.91 M/mm3 (3.60-5.2); RDW 23.2 % (11.6-15.6); WHITE BLOOD COUNT 5.7 K/mm3 (4.0-10.0)
[2018-12-08 06:50] LABS: ANION GAP 8 MMOL/L (8-16); BLOOD UREA NITROGEN 8 mg/dL (7-18); CALCIUM 8.4 mg/dL (8.5-10.1); CHLORIDE 106 mmol/L (98-107); CO2 26 mmol/L (21-32); CREATININE 0.6 mg/dL (0.55-1.3); GLUCOSE,RANDOM 120 mg/dL (74-106); MAGNESIUM 1.6 mg/dL (1.8-2.4); POTASSIUM 3.3 mmol/L (3.5-5.1); SODIUM 139 mmol/L (136-145)
--- NOTE | 2018-12-08 08:47 | PN ---
Progress Note, Physician Chief Complaint: ambulating No distress Awaits Abd US - Current Medication List Current Medications: Active Medications Aspirin (Asa -) 81 mg PO DAILY [facility] Last Admin: 12/07/18 09:03 Dose: 81 mg Atorvastatin Calcium (Lipitor -) 10 mg PO HS [facility] Last Admin: 12/07/18 22:32 Dose: 10 mg Folic Acid (Folic Acid -) 1 mg PO DAILY [facility] Last Admin: 12/07/18 09:03 Dose: 1 mg Magnesium Oxide (Mag-Ox -) 400 mg PO BID [facility] Last Admin: 12/07/18 22:32 Dose: 400 mg Methotrexate (Mexate -) 20 mg PO Mo@1000 [facility] Last Admin: 12/07/18 18:21 Dose: Not Given Metoprolol Succinate (Toprol Xl -) 25 mg PO BID [facility] Last Admin: 12/07/18 22:32 Dose: 25 mg Nicotine (Nicoderm Patch -) 21 mg TD DAILY [facility] Last Admin: 12/07/18 09:03 Dose: 21 mg Ondansetron HCl (Zofran Injection) 4 mg IVPUSH Q8H PRN PRN Reason: NAUSEA Pantoprazole Sodium (Protonix -) 40 mg PO DAILY [facility] Last Admin: 12/07/18 09:03 Dose: 40 mg Potassium Chloride (K-Dur -) 40 meq PO DAILY [facility] - Objective Vital Signs: Vital Signs Temperature 98.5 F 12/07/18 20:00 Pulse Rate 72 12/08/18 05:17 Respiratory Rate 18 12/08/18 05:17 Blood Pressure 140/86 12/08/18 05:17 O2 Sat by Pulse Oximetry (%) 98 12/07/18 20:00 Constitutional: Yes: No Distress Cardiovascular: Yes: Regular Rate and Rhythm Respiratory: Yes: CTA Bilaterally Gastrointestinal: Yes: Soft Edema: No Neurological: Yes: Alert, Oriented Labs: CBC, BMP 12/08/18 06:00 12/08/18 05:30 INR, PTT INR 1.05 (0.83-1.09) 12/04/18 20:08 Problem List - Problems (1) Hypokalemia Code(s): E87.6 - HYPOKALEMIA (2) Nausea & vomiting Code(s): R11.2 - NAUSEA WITH VOMITING, UNSPECIFIED (3) Diarrhea Code(s): R19.7 - DIARRHEA, UNSPECIFIED Qualifiers: Diarrhea type: unspecified type Qualified Code(s): R19.7 - Diarrhea, unspecified (4) CAD (coronary artery disease) Code(s): I25.10 - ATHSCL HEART DISEASE OF [place] CORONARY ARTERY W/O ANG PCTRS Qualifiers: Coronary Disease-Associated Artery/Lesion type: [place] artery Associated angina: angina presence unspecified (5) Aortic regurgitation Code(s): I35.1 - NONRHEUMATIC AORTIC (VALVE) INSUFFICIENCY Qualifiers: Cardiac valve disease etiology: nonrheumatic Qualified Code(s): I35.1 - Nonrheumatic aortic (valve) insufficiency (6) Prolonged QT interval Code(s): R94.31 - ABNORMAL ELECTROCARDIOGRAM [ECG] [EKG] (7) Abnormal ECG Code(s): R94.31 - ABNORMAL ELECTROCARDIOGRAM [ECG] [EKG] Assessment/Plan IMP: 1. Hypokalemia secondary to vomiting and diarrhea 2. Prolonged QTC secondary to marked hypoK+ 3. Abnormal ECG: likely due to hypoK+ and [place] CAD and chronic exertional angina, worsened over last 1-2 weeks 4. Chronic moderate aortic regurgitation 5. Rheumatoid arthritis. REC: 1. Telemetry monitoring; repeat ECG showed normal QTc 2. Replete K+, serial BMP 3. D/C HCTZ 4. Replete K+ today 5. Heme consult for thrombocytopenia appreciated 6. Plan for transfer for cath due to worsened ST changes and progressive anginal sx , prior abnl stress
[2018-12-08 09:47] LABS: ALK PHOS 61 U/L (45-117); BILIRUBIN,TOTAL 0.2 mg/dL (0.2-1); SGOT/AST 25 U/L (15-37); SGPT/ALT 21 U/L (13-61); TOT PROT 6.3 g/dl (6.4-8.2)
[2018-12-08] MEDS ORDERED: POTASSIUM CHLORIDE TABS 20 MEQ TABLET.ER (FP) PO SCH (10:00)
[2018-12-08] MEDS: ASPIRIN 81 MG CHEWABLE TABLETS PO SCH (11:32)
[2018-12-08] MEDS: MAGNESIUM OXIDE 400 MG TABLET (FP) PO SCH (11:32)
[2018-12-08] MEDS: PANTOPRAZOLE 40 MG TABLET (FP) PO SCH (11:33)
[2018-12-08] MEDS: NICOTINE 21 MG/24 HOURS TOPICAL PATCH TD SCH (11:33)
[2018-12-08] MEDS: FOLIC ACID 1 MG TABLET (FP) PO SCH (11:33)
[2018-12-08] MEDS: metoPROLOL SUCCINATE 25 MG TAB.SR.24H (FP) PO SCH (11:33)
[2018-12-08 11:59] LABS: ANISOCYTOSIS 1+; MACROCYTOSIS 1+; PLATELET ESTIMATE DECREASED; TARGET CELLS 1+; TEAR DROP CELLS 1+
[2018-12-08 12:17] VITALS: BP 140/100; PULSE 78; TEMP 98
== END 2018-12-08 12:14 | disposition short-term general hospital (02) | DRG 425 ==
LOC: JER 18:30 → JERBED 21:56 → J4W 12-05 02:41
PROVIDERS: ADMIT Internal Medicine; ATTEND Internal Medicine
DX: E87.6 Hypokalemia (principal); I25.119 Atherosclerotic heart disease of native coronary artery with unspecified angina pectoris; R11.2 Nausea with vomiting, unspecified; R94.31 Abnormal electrocardiogram [ECG] [EKG]; D64.9 Anemia, unspecified; E78.5 Hyperlipidemia, unspecified; M06.9 Rheumatoid arthritis, unspecified; I35.1 Nonrheumatic aortic (valve) insufficiency; I10 Essential (primary) hypertension; K21.9 Gastro-esophageal reflux disease without esophagitis; D69.6 Thrombocytopenia, unspecified; F17.210 Nicotine dependence, cigarettes, uncomplicated
CPT/HCPCS: 36415; 71045-TC-FY; 80048; 80053; 82150; 82550; 82607; 82746; 82784; 83690; 83735; 84155; 84165; 84443; 84484; 85025; 85610; 86038; 86431; 93005; 93010; 99284-25; J7030

== ENCOUNTER 2019-04-07 01:54 | Emergency (ER) | payer OTHER | END 2019-04-07 08:48 | disposition home or self-care (01) | LOC: JER 01:54 ==

== ENCOUNTER 2022-03-24 12:51 | Observation (INO) | payer OTHER ==
[2022-03-24] MEDS ORDERED: SODIUM CHLORIDE 0.9% 500 ML INFUS.BAG IV ONE (13:13)
[2022-03-24 14:10] LABS: BASO % 0.6 % (0-2.0); EOS % 2.5 % (0-4.5); HEMATOCRIT 41.7 % (32.4-45.2); HEMOGLOBIN 13.5 GM/dL (10.7-15.3); MCH 27.4 pg (25.7-33.7); MCHC 32.4 g/dl (32.0-36.0); MEAN CELL VOLUME 84.6 fl (80-96); MEAN PLT VOLUME 7.3 fl (7.5-11.1); MONO % 6.8 % (3.8-10.2); NEUT % 75.1 % (42.8-82.8); PLATELET COUNT 365 10^3/uL (134-434); RBC 4.93 M/mm3 (3.60-5.2); RDW 15.3 % (11.6-15.6); WHITE BLOOD COUNT 9.5 K/mm3 (4.0-10.0)
[2022-03-24 14:15] LABS: VENOUS BASE EXCESS -4.6 mmol/L (-2-2); VENOUS O2 SATURATION 62.4 % (70-80); VENOUS PCO2 43.6 mmHg (38-52); VENOUS PH 7.312 (7.310-7.410)
[2022-03-24 14:29] LABS: CHLORIDE 112 mmol/L (98-107); SODIUM 142 mmol/L (136-145)
[2022-03-24 14:32] LABS: ACTIVATED PTT 32.8 SECONDS (25.2-36.5); ALBUMIN 3.4 g/dl (3.4-5.0); ANION GAP 8 MMOL/L (8-16); BLOOD UREA NITROGEN 12.1 mg/dL (7-18); CO2 22 mmol/L (21-32); GLUCOSE,RANDOM 118 mg/dL (74-106)
[2022-03-24 14:34] LABS: CREATININE 0.9 mg/dL (0.55-1.3); PHOSPHOROUS 3.5 mg/dL (2.5-4.9); SGOT/AST 13 U/L (15-37); SGPT/ALT 15 U/L (13-61)
[2022-03-24 14:36] LABS: BILIRUBIN,TOTAL 0.4 mg/dL (0.2-1); TOT PROT 7.4 g/dl (6.4-8.2)
[2022-03-24 14:37] LABS: INR 1.13 (0.83-1.09)
[2022-03-24 14:38] LABS: ALK PHOS 93 U/L (45-117)
[2022-03-24 14:40] LABS: N-TERMINAL BNP 17.4 pg/ml (5-125)
[2022-03-24 18:29] VITALS: BMI 38.6
[2022-03-24] MEDS: IBUPROFEN 600 MG TABLET (FP) PO PRN (21:13)
[2022-03-24] MEDS: metoPROLOL SUCCINATE 25 MG TAB.SR.24H (FP) PO SCH (21:15)
[2022-03-24] MEDS: ATORVASTATIN CA 10 MG TABLET (FP) PO SCH (21:15)
[2022-03-24] MEDS: HEPARIN NA (PORCINE) 5,000 UNITS/ML 1ML VIAL SQ SCH (21:15)
[2022-03-24] MEDS ORDERED: diphenhydrAMINE HCL 25 MG CAPSULE (FP) PO ONE (21:30)
[2022-03-25 07:03] LABS: BASO % 0.6 % (0-2.0); EOS % 4.6 % (0-4.5); HEMATOCRIT 37.8 % (32.4-45.2); HEMOGLOBIN 12.6 GM/dL (10.7-15.3); MCH 28.1 pg (25.7-33.7); MCHC 33.5 g/dl (32.0-36.0); MEAN CELL VOLUME 84.1 fl (80-96); MEAN PLT VOLUME 7.1 fl (7.5-11.1); MONO % 7.4 % (3.8-10.2); NEUT % 61.4 % (42.8-82.8); PLATELET COUNT 322 10^3/uL (134-434); RBC 4.49 M/mm3 (3.60-5.2); RDW 15.3 % (11.6-15.6); WHITE BLOOD COUNT 7.2 K/mm3 (4.0-10.0)
[2022-03-25 07:28] LABS: CALCIUM 8.9 mg/dL (8.5-10.1)
[2022-03-25 07:29] LABS: BLOOD UREA NITROGEN 13.2 mg/dL (7-18)
[2022-03-25 07:31] LABS: CREATININE 0.8 mg/dL (0.55-1.3)
[2022-03-25 07:33] LABS: BILIRUBIN,TOTAL 0.2 mg/dL (0.2-1); TOT PROT 6.6 g/dl (6.4-8.2)
[2022-03-25] MEDS: HYDROCHLOROTHIAZIDE 12.5 MG CAPSULE (FP) PO SCH (09:47)
[2022-03-25] MEDS: FOLIC ACID 1 MG TABLET (FP) PO SCH (09:48)
[2022-03-25] MEDS: metoPROLOL SUCCINATE 25 MG TAB.SR.24H (FP) PO SCH ×2 (09:48→22:28)
[2022-03-25] MEDS: IBUPROFEN 600 MG TABLET (FP) PO PRN (09:48)
[2022-03-25] MEDS: AMOX TR/POT CLAV 875MG/125MG TABLETS (FP) PO SCH ×2 (09:48→16:42)
[2022-03-25] MEDS: ASPIRIN 81 MG CHEWABLE TABLETS PO SCH (09:48)
[2022-03-25] MEDS: HEPARIN NA (PORCINE) 5,000 UNITS/ML 1ML VIAL SQ SCH ×2 (11:28→22:29)
[2022-03-25] MEDS ORDERED: DEXTROSE 5%-0.45% SALINE 1,000 ML IV SCH (13:30)
[2022-03-25] MEDS: ONDANSETRON 4 MG/2 ML VIAL IVPUSH PRN ×2 (13:43→19:06)
[2022-03-25] MEDS: ATORVASTATIN CA 10 MG TABLET (FP) PO SCH (22:28)
[2022-03-25] MEDS ORDERED: diphenhydrAMINE HCL 25 MG CAPSULE (FP) PO ONE (22:30)
[2022-03-26] MEDS: FOLIC ACID 1 MG TABLET (FP) PO SCH (09:58)
[2022-03-26] MEDS: HYDROCHLOROTHIAZIDE 12.5 MG CAPSULE (FP) PO SCH (09:58)
[2022-03-26] MEDS: HEPARIN NA (PORCINE) 5,000 UNITS/ML 1ML VIAL SQ SCH (09:59)
[2022-03-26] MEDS: metoPROLOL SUCCINATE 25 MG TAB.SR.24H (FP) PO SCH (09:59)
[2022-03-26] MEDS: ASPIRIN 81 MG CHEWABLE TABLETS PO SCH (09:59)
[2022-03-26] MEDS: IBUPROFEN 600 MG TABLET (FP) PO PRN (10:07)
[2022-03-26] MEDS ORDERED: NICOTINE 14 MG/24 HOURS TOPICAL PATCH TD SCH (12:45)
[2022-03-26] MEDS ORDERED: CLINDAMYCIN HCL 150 MG CAPSULE (FP) PO SCH (14:00)
[2022-03-26 14:49] VITALS: BP 108/66; PULSE 57; TEMP 97.5
[2022-03-26 14:54] LABS: PH,URINE 5.5 (5.0-8.0); URINE APPEARANCE CLEAR; URINE BILIRUBIN NEGATIVE (NEGATIVE); URINE COLOR YELLOW; URINE GLUCOSE (UA) NEGATIVE (NEGATIVE); URINE KETONE NEGATIVE (NEGATIVE); URINE LEUK ESTERASE NEGATIVE (NEGATIVE); URINE NITRITE NEGATIVE (NEGATIVE); URINE PROTEIN NEGATIVE (NEGATIVE)
[2022-03-26 15:01] LABS: PHENCYCLIDINE,URINE NEGATIVE (NEGATIVE); URINE BARBITURATES NEGATIVE (NEGATIVE)
[2022-03-26 15:02] LABS: COCAINE, UR NEGATIVE (NEGATIVE); METHADONE, UR NEGATIVE (NEGATIVE); OPIATES, URI NEGATIVE (NEGATIVE)
[2022-03-26 15:08] LABS: URINE AMPHETAMINES NEGATIVE (NEGATIVE); URINE BENZODIAZEPINES POSITIVE (NEGATIVE)
[2022-03-26] MEDS ORDERED: IBUPROFEN 600 MG TABLET (FP) PO PRN (16:00)
== END 2022-03-26 17:29 | disposition short-term general hospital (02) ==
LOC: JER 12:51 → JERBED 14:51 → INTOOBSV 14:51 → J4W 18:10
PROVIDERS: ADMIT Internal Medicine; ATTEND Internal Medicine
PROC: 3E0337Z Introduction of Electrolytic and Water Balance Substance into Peripheral Vein, Percutaneous Approach (ICD-10-PCS; principal; 2022-03-24)
PROC: 3E033GC Introduction of Other Therapeutic Substance into Peripheral Vein, Percutaneous Approach (ICD-10-PCS; 2022-03-24)
PROC: 3E023GC Introduction of Other Therapeutic Substance into Muscle, Percutaneous Approach (ICD-10-PCS; 2022-03-24)
DX: I25.10 Atherosclerotic heart disease of native coronary artery without angina pectoris (principal); I11.9 Hypertensive heart disease without heart failure; R00.0 Tachycardia, unspecified; M06.9 Rheumatoid arthritis, unspecified; E87.6 Hypokalemia; R07.9 Chest pain, unspecified; E78.5 Hyperlipidemia, unspecified; K52.9 Noninfective gastroenteritis and colitis, unspecified; R01.1 Cardiac murmur, unspecified; R42 Dizziness and giddiness; R61 Generalized hyperhidrosis; R00.2 Palpitations; D64.9 Anemia, unspecified; Z91.09 Other allergy status, other than to drugs and biological substances; Z88.0 Allergy status to penicillin; M19.90 Unspecified osteoarthritis, unspecified site; F17.210 Nicotine dependence, cigarettes, uncomplicated
CPT/HCPCS: 36415; 71045-TC-FY; 80053; 80061; 80307; 81003; 82803; 82962; 83036; 83605; 83735; 83880; 84100; 84443; 84484; 84703; 85025; 85610; 85730; 86850; 86900; 86901; 87040; 87086; 93005; 93010; 93306-TC; 99285-25; C9803-CS; G0378; J1644; U0003; U0005